=== PATIENT | female | born 1950 | race Two or more races ===

== ENCOUNTER 2025-07-21 13:37 | Inpatient (IN) | payer OTHER, MEDICARE, SELFPAY ==
--- NOTE | 2025-07-21 14:36 | PD.EDABDPN ---
ED Abdominal Pain RME/HPI General Stated complaint: WEAKNESS Time seen by provider: 07/21/25 14:00 Arrival date/time: 07/21/25 13:37 Related Data Allergies Allergy/AdvReac Type Severity Reaction Status Date / Time No Known Allergies Allergy Unverified 07/21/25 14:40 Discharge Plan Patient/Caregiver Discharge Instructions Print Language: Italian
[2025-07-21 14:37] VITALS: BP 104/55; PULSE 111; RESP 22; TEMP 38.8; O2SAT 95
--- NOTE | 2025-07-21 14:38 | XR_ITS ---
Examination: CT brain head without contrast. 2-D sagittal coronal reconstructions Date and time of exam:July 21, 2025, 1940 hrs. Indications: Ground-level fall 4 days ago with left-sided head pain CTDI: vol (mGy):54.8 DLP: (mGycm):1111 Technique: Multiple CT axial sections of the brain have been obtained, 5 mm slice thickness. Contrast has not been administered. 2-D sagittal, coronal reconstructions have been obtained Low dose protocols were performed. One or more of the following dose reduction techniques were used; automated exposure control, adjustment of the mA and/or KV according to patient size, use of iterative reconstruction technique. Findings: No significant ventricular enlargement. Intra-axial or extra-axial hemorrhage density is not seen. No mass effect or midline shift Basal cisterns are not remarkable. Fourth ventricle is midline. Cranial vault intact. Impression: Negative for acute hemorrhage, mass effect or midline shift
--- NOTE | 2025-07-21 14:41 | EKG_ITS ---
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
--- NOTE | 2025-07-21 14:41 | XR_ITS ---
Examination: Foot, left, 3 views Technique: AP, oblique, lateral views foot, 3 views Date and time of exam: July 21, 2025 1518 hours INDICATIONS: Injury to the foot today, foot pain FINDINGS: No acute fracture No dislocation No foreign body IMPRESSION: No acute fracture
--- NOTE | 2025-07-21 14:41 | XR_ITS ---
Examination: AP chest single view Technique one AP portable upright chest single view Date and time: July 21, 2025, 1521 hours INDICATIONS: Sepsis alert FINDINGS: Normal heart size. Lungs are clear. Moderate osteopenia IMPRESSION: No pneumonia identified
--- NOTE | 2025-07-21 14:59 | PD.EDWEAK ---
ED Weakness RME/HPI General Stated complaint: WEAKNESS Time Seen by Provider: 07/21/25 14:00 Arrival date/time: 07/21/25 13:37 Related Data Allergies Allergy/AdvReac Type Severity Reaction Status Date / Time No Known Allergies Allergy Unverified 07/21/25 14:40 Course Orders Category Date Time Status Bedside Blood Glucose NOW Care 07/21/25 14:41 Active Bedside COVID-19 Antigen Test NOW Care 07/21/25 14:38 Active Bedside Influenza A&B Antigen Test NOW Care 07/21/25 14:[address] Screening NOW Care 07/21/25 14:38 Active Shoe Repairman Q4H START 00 Care 07/21/25 14:41 Active Insert IV NOW Care 07/21/25 14:41 Active Strict Intake and Output Routine Care 07/21/25 14:[address] abdomen pelvis w con Stat Exams 07/21/25 14:[address] head/brain wo con Stat Exams 07/21/25 14:38 Ordered XR chest 1V SEPSIS PROTOCOL Stat Exams 07/21/25 14:41 Ordered XR foot comp LT min 3V Stat Exams 07/21/25 14:41 Ordered Blood Culture (Lab) Stat Lab 07/21/25 14:41 Ordered CBC Stat Lab 07/21/25 14:36 Ordered CK [Creatine Kinase] Stat Lab 07/21/25 14:37 Ordered CMP [Comprehensive Metabolic Panel] Stat Lab 07/21/25 14:37 Ordered Lactate (Lactic Acid) Stat Lab 07/21/25 14:41 Ordered PT [Prothrombin Time with INR] Stat Lab 07/21/25 14:38 Ordered Procalcitonin Stat Lab 07/21/25 14:37 Ordered Prothrombin Time with INR Stat Lab 07/21/25 14:41 Ordered UA, C/S IF [Urinalysis, C/S if Indicated] Stat Lab 07/21/25 14:37 Ordered Ringers Lactated 1000 ml [Lactated Ringers] 1,000 ml Med 07/21/25 14:39 Active IV 999 mls/hr EKG (RT) Stat RT 07/21/25 14:41 Ordered Oxygen Delivery NOW RT 07/21/25 14:41 Active Vital Signs Vital signs: Vital Signs Temperature 101.8 F H 07/21/25 14:37 Pulse Rate 111 H 07/21/25 14:37 Respiratory Rate 22 H 07/21/25 14:37 Blood Pressure 104/55 L 07/21/25 14:37 Pulse Oximetry (%) 95 07/21/25 14:37 Oxygen Delivery Method Room Air 07/21/25 14:37 Weakness Medications / Prescriptions Medication administrations:: Medication Administration History Lactated Ringer's (Lactated Ringers) 1,000 mls @ 999 mls/hr IV .Q1H1M ONE Stop: 07/21/25 15:39 Discharge Plan Patient/Caregiver Discharge Instructions Print Language: Sami
--- NOTE | 2025-07-21 15:00 | EDNOTE_ITS ---
ED Weakness RME/HPI General Chief complaint: Weakness Stated complaint: WEAKNESS Time Seen by Provider: 07/21/25 14:00 Arrival date/time: 07/21/25 13:37 Limitations: no limitations RME / HPI RME / HPI Narrative: 74 year old female with history of hypertension presents to the ED BIBA from home for evaluation of weakness today. Per medics, on scene reported the patient had been globally weak for 3 days. Accompanied by three ground level falls over the last 3 days, most recent fall occurring this morning. No LOC reported with either falls. In the ED, patient complains of global weakness, mouth feeling dry, vague abdominal pain, nausea, and diarrhea. Additionally reports she has felt some stress recently as she is taking care of her elderly mother. Denies fevers, chills, chest pain, cough, shortness of breath, vomiting, or urinary symptoms. Denies any recent travel. Per medics, prehospital vital signs HR 96, blood pressure 152/86, saturating 99% on room air, GCS of 15. Related Data Allergies Allergy/AdvReac Type Severity Reaction Status Date / Time No Known Allergies Allergy Unverified 07/21/25 14:40 Review of Systems Review of Systems Systems Reviewed: All systems reviewed, normal except as documented Past Medical History Past Medical History CARDIAC: Positive Hypertension Social History SMOKING STATUS: Never smoker ED Exam General Limitations: Present no limitations General appearance: Present alert and other (appear globally weak, tremor with speaking ) Head Head exam: Present atraumatic Eye Eye exam: Present normal appearance, PERRL and EOMI ENT ENT exam: Present normal exam, normal oropharynx and mucous membranes moist Neck Neck exam: Present normal inspection, full ROM and trachea midline Chest Chest inspection: Present normal inspection and symmetric chest wall rise Respiratory Respiratory exam: Present normal lung sounds bilaterally Cardiovascular Cardiovascular exam: Present regular rate, normal rhythm and normal heart sounds Abdominal Exam Abdominal exam: Present soft and normal bowel sounds; Absent distention, tenderness, guarding, rebound or rigidity Extremities Exam Extremities exam: Present normal inspection and full ROM; Absent pedal edema Back Exam Back exam: Present normal inspection and full ROM Neurological Exam Neurological exam: Present alert, oriented X3 and CN II-XII intact Psychiatric Psychiatric exam: Present normal affect and normal mood Skin Skin exam: Present warm, dry, intact and normal color Course Quality Measures none Orders Category Date Time Status Bedside Blood Glucose NOW Care 07/21/25 14:41 Active Bedside COVID-19 Antigen Test NOW Care 07/21/25 14:38 Active Bedside Influenza A&B Antigen Test NOW Care 07/21/25 14:[address] Screening NOW Care 07/21/25 14:38 Active 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 START 00 Care 07/21/25 14:41 Active Insert IV NOW Care 07/21/25 14:41 Active Strict Intake and Output Routine Care 07/21/25 14:[address] abdomen pelvis wo con Stat Exams 07/21/25 17:[address] head/brain wo con Stat Exams 07/21/25 14:38 Completed XR chest 1V SEPSIS PROTOCOL Stat Exams 07/21/25 14:41 Taken XR foot comp LT min 3V Stat Exams 07/21/25 14:41 Completed Blood Culture (Lab) Stat Lab 07/21/25 14:54 Received CBC Stat Lab 07/21/25 14:45 Completed CK [Creatine Kinase] Stat Lab 07/21/25 14:45 Completed CMP [Comprehensive Metabolic Panel] Stat Lab 07/21/25 14:45 Completed Lactate (Lactic Acid) Stat Lab 07/21/25 14:45 Completed PT [Prothrombin Time with INR] Stat Lab 07/21/25 14:45 Completed Procalcitonin Stat Lab 07/21/25 14:45 Completed UA, C/S IF [Urinalysis, C/S if Indicated] Stat Lab 07/21/25 16:54 Completed Acetaminophen Tab [Tylenol Tab] Med 07/21/25 17:14 Discontinued 650 mg PO X1 ONE Ringers Lactated 1000 ml [Lactated Ringers] 1,000 ml Med 07/21/25 14:39 Discontinued IV 999 mls/hr Ringers Lactated 1000 ml [Lactated Ringers] 1,000 ml Med 07/21/25 17:15 Discontinued IV 999 mls/hr cefTRIAXone/D5w 1gm IV premix [Rocephin/D5w 1gm IV Med 07/21/25 17:17 Discontinued premix] 1 gm in 50 ml IV STAT EKG (RT) Stat RT 07/21/25 14:41 Draft Oxygen Delivery NOW RT 07/21/25 14:41 Active Vital Signs Vital signs: Vital Signs Temperature 101.8 F H 07/21/25 14:37 Pulse Rate 111 H 07/21/25 14:37 Respiratory Rate 22 H 07/21/25 14:37 Blood Pressure 104/55 L 07/21/25 14:37 Pulse Oximetry (%) 95 07/21/25 14:37 Oxygen Delivery Method Room Air 07/21/25 14:37 Pulse ox is 95% on room air which is adequate. Weakness MDM Narrative MDM Narrative:: Patient is a 74-year-old female seen emergency department from concerns for weakness, recurrent falls. Patient also presented febrile and tachycardic. Ordered sepsis order set. Labs with evidence of leukocytosis 11.8, with a left shift. Hemoglobin is 11.6. Patient with creatinine 4.3, patient does not have a history of kidney disease. Do not have a prior for comparison. BUN 68. Bicarb 19.3. Concern for possible dehydration. Provided patient with fluids. Patient with patient with AST 125, ALT 59. CK 4472. Concern for rhabdomyol ysis. Provided patient with additional fluids. Procalcitonin is 77.89. Will provide patient with antibiotics. Patient with foot pain. Foot x-ray without any evidence of fracture. CT brain unremarkable, CT abd pelvis w/o contrast notable for prominent right hydronephrosis, mild to moderate left hydronephrosis. No evidence of renal or ureteral calculi. Patient has mild urinary bladder wall thickening. Urinalysis with evidence of urinary tract infection. Will discuss with the hospitalist admission. Discussed case with hospitalist team resident. Patient data External records reviewed:: [facility] previous records and EMS form Clinical information provided by:: patient and EMS Social determinants that could affect healthcare access:: none Patient has the following chronic illnesses:: HTN How is presenting disease/condition affected by chronic disease/condition?: exacerbated by Evaluation data The following diagnostics were reviewed and interpreted by me:: lab results and radiology exam(s) Lab and/or radiology exams considered but not ordered:: None Interpretation Summary: Ordering Physician: Benita Jean-Baptiste MD Date of Service: 07/21/25 Procedure(s): XR foot comp LT min 3V Accession Number(s): [id number] cc: Tim Thomas MD; NO PRIMARY/FAMILY,PHYSICIAN; Benita Jean-Baptiste MD~ Examination: Foot, left, 3 views Technique: AP, oblique, lateral views foot, 3 views Date and time of exam: July 21, 2025 1518 hours INDICATIONS: Injury to the foot today, foot pain FINDINGS: No acute fracture No dislocation No foreign body IMPRESSION: No acute fracture Dictated By: Tim Thomas MD Signed By: <Electronically signed by Tim Thomas MD in OV> 07/21/25 154 = Ordering Physician: Benita Jean-Baptiste MD Date of Service: 07/21/25 Procedure(s): CT head/brain wo con Accession Number(s): [id number] cc: Tim Thomas MD; NO PRIMARY/FAMILY,PHYSICIAN; Benita Jean-Baptiste MD~ Examination: CT brain head without contrast. 2-D sagittal coronal reconstructions Date and time of exam:July 21, 2025, 1940 hrs. Indications: Ground-level fall 4 days ago with left-sided head pain CTDI: vol (mGy):54.8 DLP: (mGycm):1111 Technique: Multiple CT axial sections of the brain have been obtained, 5 mm slice thickness. Contrast has not been administered. 2-D sagittal, coronal reconstructions have been obtained Low dose protocols were performed. One or more of the following dose reduction techniques were used; automated exposure control, adjustment of the mA and/or KV according to patient size, use of iterative reconstruction technique. Findings: No significant ventricular enlargement. Intra-axial or extra-axial hemorrhage density is not seen. No mass effect or midline shift Basal cisterns are not remarkable. Fourth ventricle is midline. Cranial vault intact. Impression: Negative for acute hemorrhage, mass effect or midline shift Dictated By: Tim Thomas MD Signed By: <Electronically signed by Tim Thoams MD in OV> 07/21/25 175 = Ordering Physician: Benita Jean-Baptiste MD Date of Service: 07/21/25 Procedure(s): CT abdomen pelvis wo con Accession Number(s): [id number] cc: Tim Thomas MD; NO PRIMARY/FAMILY,PHYSICIAN; Benita Jean-Baptiste MD~ Examination: CT abdomen and pelvis without contrast. Coronal 3-D reconstructions. Sagittal 2-D reconstructions. Date and time of exam:July 21, 2025, 1746 hrs. Indications: Patient fell 4 days ago with injury of the abdomen, abdomen pain CTDI: vol (mGy): 12.8 DLP: (mGycm): 798 Technique: Axial images of the abdomen have been obtained, 3 mm slice thickness Intravenous contrast material has not been administered. Low dose protocols were performed. One or more of the following dose reduction techniques were used; automated exposure control, adjustment of the mA and/or KV according to patient size, use of iterative reconstruction technique. Findings: No pneumothorax No liver splenic or renal laceration Cholelithiasis No pancreatic mass Abdominal aorta intact, no free blood in the abdomen Moderate to prominent right hydronephrosis mild to moderate left hydronephrosis, no renal or ureteral calculi Mild thickening of the urinary bladder No acute lumbar or sacral fracture Bones of the pelvis and hips appear intact Impression: No abdominal parenchymal laceration Abdominal aorta intact No free blood in the abdomen Moderate to prominent right hydronephrosis, mild to moderate left hydronephrosis, no renal or ureteral calculi, mild urinary bladder wall thickening, highest on the differential list would be vesicoureteral reflux and significant urinary tract and bladder infection Dictated By: Tim Thomas MD Signed By: <Electronically signed by Tim Thomas MD in OV> 07/21/25 1803 Medications / Prescriptions Medications or Prescriptions considered but not ordered:: None Medication administrations:: Medication Administration History Discontinued Medications Acetaminophen (Acetaminophen 325 Mg Tablet) 650 mg PO X1 ONE Stop: 07/21/25 17:15 Lactated Ringer's (Lactated Ringers) 1,000 mls @ 999 mls/hr IV .Q1H1M ONE Stop: 07/21/25 15:39 Last Admin: 07/21/25 17:10 Dose: 999 mls/hr Documented By: EF Lactated Ringer's (Lactated Ringers) 1,000 mls @ 999 mls/hr IV .Q1H1M ONE Stop: 07/21/25 18:15 Ceftriaxone Sodium/Dextrose (Rocephin/D5w 1gm Iv Premix) 1 gm in 50 mls @ 100 mls/hr IV STAT STA Stop: 07/21/25 17:46 See above Consultations Consultation(s) initiated? (list below): Yes Consultation #1 (Physician, Specialty, Details): See MDM Diagnosis Weakness Differential Diagnosis: anemia, hypoglycemia, sepsis and dehydration Most likely diagnosis given after review of the tests above:: Acute renal failure, rhabdomyolysis, sepsis, urinary tract infection, urosepsis Admission Indicated Admission indicated?: indicated Admission Request Was there a request for admission?: Yes Admission Attestation Admission request attestation: Discussed case with Hospitalist service regarding admission. Discussed patients ED course, exam findings, labs, and radiology results. Disposition Plan Disposition Plan: Admit Critical Care Time Critical Care Time Critical Care Time: Yes Total Critical Care Time (min.): 45 Attestation: ?I spent 45 minutes of critical care time with this patient not including reportable procedures. There was an acute impairment of an organ system with a high probability of imminent or life threatening deterioration in the patient's condition. Interventions and changes required in the course of therapy are located in the chart. Time involved was spent in direct patient care, reviewing ancillary data, old records, consulting with decision makers, EMS, other doctors, giving orders and documenting. Discharge Plan Plan Patient Disposition: Admit Acute Care w/in Hospital Prescriptions/Referrals Referrals: No Primary/Family,Physician [Primary Care Provider] - In 1 week Problem List Clinical Impression: Rhabdomyolysis, Sepsis, Urinary tract infection Patient/Caregiver Discharge Instructions Print Language: Lithuanian Stand Alone Forms: Rosemary Award Info., Patient Portal Info Letter
[2025-07-21 15:01] LABS: Lactate (Lactic Acid) 1.8 mMol/L (0.4-2.0)
[2025-07-21 15:09] LABS: Basophils # (Auto) 0.0 Thou/mm3 (0.0-0.2); Basophils % (Auto) 0 % (0-2.5); Eosinophils # (Auto) 0.1 Thou/mm3 (0.0-0.5); Eosinophils % (Auto) 1 % (0-10); Hematocrit 34.3 % (36.0-46.0); Hemoglobin 11.6 g/dL (12.0-16.0); Immature Granulocytes Auto 0.07 Thou/mm3 (0.00-0.00); Lymphocytes # (Auto) 0.5 Thou/mm3 (1.0-4.8); Lymphocytes % (Auto) 4 % (10-50); Mean Corpuscular HGB Conc 33.8 g/dl (31.0-37.0); Mean Corpuscular Hemoglobin 30.2 pg (25.0-35.0); Mean Corpuscular Volume 89 fL (80-100); Monocytes # (Auto) 0.9 Thou/mm3 (0.0-0.8); Monocytes % (Auto) 8 % (0-12); Neutrophils # (Auto) 10.2 Thou/mm3 (1.8-7.7); Neutrophils % (Auto) 87 % (37-80); Nucleated Red Blood Cell # 0.00 Thou/mm3 (0.00-0.00); Nucleated Red Blood Cell % 0 /100 WBC (0); Platelet Count 108 Thou/mm3 (140-440); RDW Standard Deviation 42.0 fL (36.4-46.3); Red Blood Count 3.84 Miln/mm3 (4.00-5.20); White Blood Count 11.8 Thou/mm3 (3.6-11.0)
[2025-07-21 15:16] LABS: INR 1.1 (0.9-1.3); Prothrombin Time 12.3 Seconds (9.0-12.2)
[2025-07-21 15:39] LABS: Alanine Aminotransferase 59 U/L (10-49); Albumin, Serum 4.0 gm/dL (3.4-4.8); Albumin/Globulin Ratio 1.3 (1.2-2.2); Alkaline Phosphatase 58 U/L (46-116); Anion Gap 14 (7-16); Aspartate Amino Transferase 125 U/L (0-34); BUN/Creatinine Ratio 16 Ratio (12-20); Bilirubin,Total 1.0 mg/dL (0.3-1.2); Blood Urea Nitrogen 68 mg/dL (9-23); Calcium 9.2 mg/dL (8.3-10.6); Calcium (Corrected) 9.2 mg/dL (8.5-10.1); Carbon Dioxide 19.3 mMol/L (20.0-31.0); Chloride 101 mMol/L (98-107); Creatinine (Component) 4.3 mg/dL (0.6-1.3); Globulin 3.1 gm/dL (2.3-3.5); Glucose 156 mg/dL (74-106); Osmolality,Calculated 290 (275-295); Potassium 4.0 mMol/L (3.4-5.1); Sodium 134 mMol/L (136-145); Total Protein 7.1 gm/dL (5.7-8.2); eGFR 10 See Note
[2025-07-21 15:42] LABS: Creatine Kinase 4472 U/L (34-171)
[2025-07-21 15:57] LABS: Procalcitonin 77.81 ng/ml (0.0-0.49)
[2025-07-21 16:56] VITALS: PULSE 105; RESP 22; RESP 96; BMI 41.1
[2025-07-21 16:58] LABS: Collection Type, Urine Catheter
[2025-07-21] MEDS: RINGERS LACTATED 1000 ML 1,000 ML 999 ML IV ×2 (17:10→20:28)
--- NOTE | 2025-07-21 17:13 | XR_ITS ---
Examination: CT abdomen and pelvis without contrast. Coronal 3-D reconstructions. Sagittal 2-D reconstructions. Date and time of exam:July 21, 2025, 1746 hrs. Indications: Patient fell 4 days ago with injury of the abdomen, abdomen pain CTDI: vol (mGy): 12.8 DLP: (mGycm): 798 Technique: Axial images of the abdomen have been obtained, 3 mm slice thickness Intravenous contrast material has not been administered. Low dose protocols were performed. One or more of the following dose reduction techniques were used; automated exposure control, adjustment of the mA and/or KV according to patient size, use of iterative reconstruction technique. Findings: No pneumothorax No liver splenic or renal laceration Cholelithiasis No pancreatic mass Abdominal aorta intact, no free blood in the abdomen Moderate to prominent right hydronephrosis mild to moderate left hydronephrosis, no renal or ureteral calculi Mild thickening of the urinary bladder No acute lumbar or sacral fracture Bones of the pelvis and hips appear intact Impression: No abdominal parenchymal laceration Abdominal aorta intact No free blood in the abdomen Moderate to prominent right hydronephrosis, mild to moderate left hydronephrosis, no renal or ureteral calculi, mild urinary bladder wall thickening, highest on the differential list would be vesicoureteral reflux and significant urinary tract and bladder infection
[2025-07-21 17:14] VITALS: BP 116/58; PULSE 103; RESP 28; TEMP 37.4; O2SAT 95
[2025-07-21 17:20] LABS: Bacteria,Urine 4+; Bilirubin,Urine Negative (Negative); Blood,Urine 3+ (Negative); Color,Urine Orange (Lt Yel-Yel); Culture Indicated,Urine Contaminated; Glucose, Urine Negative (Negative); Ketones,Urine Negative (Negative); Leukocyte Esterase,Urine Positive (Negative); Nitrite,Urine Negative (Negative); PH,Urine 8.0 (5.0-7.0); Protein,Urine 2+ (Neg - Trace); RBC,Urine 1000 /hpf (0-3); Specific Gravity,Urine 1.010 (1.001-1.035); Squamous Epithelial Cell,Urine 35 /hpf (0-5); Urobilinogen,Urine Negative mg/dL (0.0-1.0); WBC,Urine 1438 /hpf (0-5)
[2025-07-21 17:26] LABS: Clarity,Urine Turbid (Clear/Hazy)
--- NOTE | 2025-07-21 18:24 | PD.RESEVENT ---
Documentation for date of: 07/21/25 Event Note Event Note: Merary Cortes is a 74-year-old female with a history of hypertension who presented for weakness for 3 days per . She has had associated abdominal pain, nausea, and diarrhea but no fever, chills, chest pain, shortness of breath. Of note, she did have a fall recently but no reported loss of consciousness. In ED, presented with pulse of 111, respiratory rate 22, temp of 101.8 ?F, and on room air. CBC showed slight leukocytosis of 11.8, hemoglobin 11.6. CHEM panel showed bicarb 19.3, BUN 60, creatinine 4.3, no history of kidney disease. AST 125, ALT 59, CK 4000, Pro-Arthur 77. UA showed turbid urine, LE positive, 1000 RBC, 14,000 WBC, 4+ bacteria. CT A/P showed moderate to prominent right hydronephrosis, mild to moderate left hydronephrosis but no obstructive lesions seen. Suspect to be due to vesicoureteral reflux and significant urinary tract and bladder infection. CT head negative for hemorrhage or mass affect. EKG showed sinus tachycardia. Given 1 L LR in ED. Pending admission for UTI, rhabdomyolysis, and suspected diarrheal illness and will sign out to oncoming team. ----- Plan discussed with attending physician Dr. Roosevelt Purvis MD PGY-2 Internal Medicine
[2025-07-21] MEDS: ACETAMINOPHEN 325 MG TABLET 650 MG PO (18:47)
[2025-07-21] MEDS: cefTRIAXone/D5w 1gm IV premix 1 GM/50 ML BAG IV (18:48)
--- NOTE | 2025-07-21 19:50 | PD.EDADDENDU ---
Emergency Room Addendum Addendum Narrative: Signout received from previous shift ED physician Dr. Jean-Baptiste. Past medical, surgical, social, family history reviewed vitals home medications reviewed, will resume care of the patient at this time. Please refer to emergency department record of history and exam from initial visit Ms. 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 Patient reported multiple falls, reports her legs gave out, bruising noted on the left side of her face. No loss of consciousness reported with each fall however patient complains of global weakness, vague abdominal pain nausea and diarrhea. Patient's workup remarkable for severe acute kidney injury BUN 68 creatinine 4.3 eGFR 10 with mild transaminitis and creatinine kinase elevation at 4472. Patient noted to have hematuria, 3+ blood, 1000 RBC 4+ bacteria with suspicion of UTI. CT head unremarkable, CT abdomen pelvis shows prominent right hydronephrosis with mild to moderate left hydronephrosis, urinary bladder wall thickening noted as well. Case was discussed by Dr. Jean-Baptiste with hospitalist team who agreed to admit the patient, however patient was signed out to the paralegal secretary team due to shift change. 1950: General Manager [employer] team requesting urology consult prior to admission, case discussed with urologist Dr. Wright who agreed to consult on the patient, requesting clinicals and facesheet be faxed over to his office. He recommended placing a Ku catheter. 2016: Ku catheter placed, 50 cc urine output noted, informed hospitalist team. Hospitalist team accepted patient for admission. Case discussed with Attending Physician Dr. Mina Remy MD Internal Medicine PGY-2 Disclaimer: This note was dictated by speech recognition. Minor errors in film printer may be present due to voice recognition software.
[2025-07-21 20:18] VITALS: BP 111/52; PULSE 105; RESP 18; TEMP 37.3; O2SAT 96
[2025-07-21] MEDS: RINGERS LACTATED 1000 ML 1,000 ML 100 ML IV (21:00)
--- NOTE | 2025-07-21 21:13 | ESHP_ITS ---
Documentation for date of: 07/21/25 [facility] History of Present Illness History of present illness: The patient is a 74-year-old female with a history of hypertension who presents to the ED on 07/21/2025 with a chief complaint of weakness following a ground- level fall. The fall occurred 3 days ago, with sudden onset of generalized weakness. She denies loss of consciousness or urinary incontinence at the time of the fall. After the fall, the patient experienced left-sided foot numbness, which has since improved. She denies any other body pain. The patient reports a history of fatigue, sleepiness, and decreased appetite prior to the fall, but denies lightheadedness, chest pain, tinnitus, nausea, or vomiting. On the morning of the event, she had breakfast and was walking around her home when she suddenly felt weak and fell. She denies any tingling or other sensory changes at the time of the fall. The patient also notes starting Mounjaro (tirzepatide) three weeks ago, with two doses administered thus far. She is concerned that her current symptoms of weakness may be related to the medication. She has lost 10-11 pounds since starting Mounjaro. Additionally, the patient reports 1 week of dysuria, hematuria, and a sensation of a full and distended bladder. She attempts to urinate regularly but feels as though she is unable to void completely, without any associated urinary frequency. She has history of uterus prolapse for which she is following with a doctor in [place]. She denies fever, chills, chest pain, cough, shortness of breath, nausea, vomiting, or changes in bowel movements. There is no history of recent travel or sick contacts. ED Course: -Initial vitals were BP 104/25, pulse 111, respiratory 18, temp 101.8, O2 75% on room air. -Labs significant for WBC 11.8, hemoglobin 11.6, hematocrit 34.3, platelet 108, sodium 134, bicarb 19.3, BUN 60, creatinine 4.3, eGFR 10, AST 125, ALT 59, lactic creatinine is 204, creatinine kinase 4472, Pro-Arthur 77.81. VBG pH 7.44, CO2 24, O2 67. UA showed turbid urine, LE positive, 1000 RBC, 14,000 WBC, 4+ bacteria. -Imaging included CT A/P showed moderate to prominent right hydronephrosis, mild to moderate left hydronephrosis but no obstructive lesions seen. Suspect to be due to vesicoureteral reflux and significant urinary tract and bladder infection. CT head negative for hemorrhage or mass affect. EKG showed sinus tachycardia. -In the ED, patient was given 1 L LR, started nava cath, made 170cc urine after nava.Post nava bladder showed 143 cc -Patient was admitted for UTI and Rhabdomyolysis evaluation and management Review of Systems Review of systems otherwise negative except what is mentioned above. Past Medical History: Mentioned above Family History: Noncontributory Surgical History: none Social History: Denies history of smoking, denies current alcohol use, denies recreational drug use lives withs . 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 Current Medications: Losartan and omeprazole Allergies: No known drug allergies Exam Vital Signs Temp Pulse Resp BP Pulse Ox O2 Del Method 99.2 F 105 H 18 111/52 L 96 Room Air 07/21/25 20:18 07/21/25 20:18 07/21/25 20:18 07/21/25 20:18 07/21/25 20:18 07/21/25 20:18 Narrative Exam General: Alert, no acute distress.Conversational and non-toxic appearing. Skin: Warm, dry, intact. No rash or ecchymoses. Head:bruise around her left eye and eyebrow,normocephalic, atraumatic. Eye: Normal conjunctiva, PERRL. Throat: Oral mucosa moist. No obvious lesions in oropharynx. Cardiovascular: Regular rate and rhythm, no murmur, +S1/S2. Respiratory: Lungs are clear to auscultation, respirations unlabored, no crackles, no wheezing. Gastrointestinal: Soft, nontender, non-distended. No guarding or rebound tenderness. Extremities: Left knee bruise, No edema, no cyanosis, no clubbing. Neuro: Alert and oriented x3.No focal deficits observed. Conversant, moving all extremities. No overt cerebellar signs/incoordination. Psychiatric: Cooperative, appropriate affect Results: Labs 07/24/25 04:55 07/24/25 04:55 Labs: Short CBC 07/21/25 Range/Units 14:45 WBC 11.8 H (3.6-11.0) Thou/mm3 Hgb 11.6 L (12.0-16.0) g/dL Hct 34.3 L (36.0-46.0) % Plt Count 108 L (140-440) Thou/mm3 BMP 07/21/25 14:45 Sodium 134 L Potassium 4.0 Chloride 101 Carbon Dioxide 19.3 L BUN 68 H Creatinine 4.3 H* Glucose 156 H Calcium 9.2 Cardiac Enzymes 07/21/25 Range/Units 14:45 Total Creatine Kinase 4472 H (34-171) U/L Liver Function 07/21/25 Range/Units 14:45 Total Bilirubin 1.0 (0.3-1.2) mg/dL AST 125 H (0-34) U/L ALT 59 H (10-49) U/L Alkaline Phosphatase 58 (46-116) U/L Albumin 4.0 (3.4-4.8) gm/dL Urine 07/21/25 Range/Units 16:54 Urine Color Sampson A (Lt Yel-Yel) Urine Clarity Turbid A (Clear/Hazy) Urine pH 8.0 H (5.0-7.0) Ur Specific [place] 1.010 (1.001-1.035) Urine Protein 2+ A (Neg - Trace) Urine Glucose (UA) Negative (Negative) Quality Measures Quality Measures none Advance care planning discussed with:: patient and spouse Medications Home Medications and Allergies Home Medications ?Medication ?Instructions ?Recorded ?Confirmed ?Type losartan 50 mg tablet 50 mg PO QDAY 07/21/2507/21 History omeprazole 20 mg capsule,delayed 20 mg PO QDAY 5 07/21/25 History release Allergies Allergy/AdvReac Type Severity Reaction Status Date / Time No Known Allergies Allergy Unverified 07/21/25 14:40 Visit Medications Lactated Ringer's (Lactated Ringers) 1,000 mls @ 100 mls/hr IV .Q10H DARIEL Stop: 08/20/25 20:49 Ceftriaxone Sodium/Dextrose (Rocephin/D5w 1gm Iv Premix) 1 gm in 50 mls @ 100 mls/hr IV QDAY DARIEL Stop: 07/29/25 08:59 Discontinued Medications Acetaminophen (Acetaminophen 325 Mg Tablet) 650 mg PO X1 ONE Stop: 07/21/25 17:15 Last Admin: 07/21/25 18:47 Dose: 650 mg Lactated Ringer's (Lactated Ringers) 1,000 mls @ 999 mls/hr IV .Q1H1M ONE Stop: 07/21/25 15:39 Last Infusion: 07/21/25 20:15 Dose: Infused Lactated Ringer's (Lactated Ringers) 1,000 mls @ 999 mls/hr IV .Q1H1M ONE Stop: 07/21/25 18:15 Last Admin: 07/21/25 20:28 Dose: 999 mls/hr Ceftriaxone Sodium/Dextrose (Rocephin/D5w 1gm Iv Premix) 1 gm in 50 mls @ 100 mls/hr IV STAT STA Stop: 07/21/25 17:46 Last Infusion: 07/21/25 19:31 Dose: Infused Assessment & Plan Plan The patient is a 74-year-old female with a history of hypertension who presents to the ED on 07/21/2025 with a chief complaint of weakness following a ground- level fall. Admitted for rhabdomyolysis/UTI evaluation and management #Sepsis in setting of UTI #Bilateral hydronephrosis Patient presented 1 week of dysuria, hematuria, and a sensation of a full and distended bladder. On admission patient was tachycardic, tachypneic and febrile with a temperature of 101.8, leukocytosis meeting the criteria of sepsis with endorgan damage noted by creatinine levels . WBC 11.8, Pro-Arthur 77.81. UA showed turbid urine, LE positive, 1000 RBC, 14,000 WBC, 4+ bacteria. EKG showed sinus tachycardia.? Given 1.5 L LR in ED. Unable to give more due to urinary retention. Likely secondary to postobstructive uropathy given the CT abdominal finding showing prominent right hydronephrosis with mild to moderate left hydronephrosis. - Started nava cath, made 170cc urine after nava.Post nava bladder showed 143 cc, continue to monitor - Strict ins and out - Started IV LR at 100/h - Started ceftriaxone 1 gm IV - Pain controlled acetaminophen and Dilaudid as needed -Blood culture, pending - Urine culture, pending - Urology Dr. Wright was consulted by the ED physician-recommendation appreciated #Status post, ground-level fall #Rhabdomyolysis #Acute tubular necrosis #Transaminitis Rhabdomyolysis, secondary to muscle breakdown following a ground-level fall, leads to the release of myoglobin into the bloodstream, which is toxic to the kidneys and can cause acute tubular necrosis by accumulating in the renal nephrons. Also the patient denies caffeine intake, health supplements, or energy drinks, ruling out these potential causes of rhabdomyolysis. CT A/P showed moderate to prominent right hydronephrosis, mild to moderate left hydronephrosis but no obstructive lesions seen.? Suspect to be due to vesicoureteral reflux and significant urinary tract and bladder infection.? CT head negative for hemorrhage or mass affect.? AST 125, ALT 59, HCO3 19. CK 4472 after IVF improve to 3405. - consulted, will see the patient in the morning - Continue IV hydration as mentioned above - Continue to monitor creatinine kinase levels #Postobstructive uropathy #Acute kidney injury, likely postrenal Significant elevated creatinine, bun and low GFR may be secondary to possible postobstructive uropathy given the patient history of urinary retention and suspicion of possible vesicoureteral reflux on CT abdominal/pelvis. Creatinine 4.3(baseline unknow) on admission improved to 3.6 after IV hydration, eGFR 10, bun 68, bun/cr 16. - Strict ins and out - Avoid nephrotoxins - Monitor renal panel -Renally dosed medications #Cholelithiasis Found on CT abdominal pelvis. Abdominal pain, nausea, vomiting and postprandial pain. - Continue to monitor Hospital management: Lines: peripheral IV Diet: N.p.o. 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 CODE STATUS: Full code Patient seen and assessed under supervision of attending physician Dr.Alhalaibeh Kaylynn Bliss MD PGY-1, Internal Medicine Please note: this document was transcribed using voice recognition technology; minor inaccuracies may be present. Attending Provider Attestation/Addendum After examination of the patient and review of the clinical data I feel that this patient needs admission to the hospital for further treatment/evaluation. Plan of care discussed with patient and is in agreement. I Juan Rincon MD, attest that I was physically present for saini portions of evaluation, and examined patient, labs and imagings and plan of care were discussed with IM residents team, and I agree with the findings and plans documented above.
[2025-07-21 21:14] LABS: Base Excess, Venous -7 (-3-3); O2 Saturation, Venous 95 % (96-97); PCO2, Venous 24 mmHg (36-56); PO2, Venous 67 mmHg (15-58); pH, Venous 7.44 (7.33-7.66)
[2025-07-21 21:32] LABS: Albumin, Serum 3.0 gm/dL (3.4-4.8); Anion Gap 16 (7-16); BUN/Creatinine Ratio 19 Ratio (12-20); Blood Urea Nitrogen 69 mg/dL (9-23); Calcium 8.0 mg/dL (8.3-10.6); Calcium (Corrected) 8.8 mg/dL (8.5-10.1); Carbon Dioxide 15.6 mMol/L (20.0-31.0); Chloride 103 mMol/L (98-107); Creatinine (Component) 3.6 mg/dL (0.6-1.3); Estimated Creatinine Clearance 15.8 mL/min (>60); Glucose 110 mg/dL (74-106); LDH (Lactate Dehydrogenase) 284 U/L (120-246); Osmolality,Calculated 291 (275-295); Phosphorous 1.8 mg/dL (2.4-5.1); Potassium 3.6 mMol/L (3.4-5.1); Sodium 135 mMol/L (136-145); eGFR 13 See Note
[2025-07-21 21:41] LABS: Creatine Kinase 3405 U/L (34-171)
[2025-07-21 22:10] VITALS: BMI 41.2
[2025-07-21 23:33] VITALS: PULSE 79; RESP 22; RESP 94
[2025-07-22] VITALS (13 sets, daily range): BP systolic 119–150; BP diastolic 66–95; PULSE 79–115; RESP 16–94; TEMP 36.1–39.6; O2SAT 92–95
[2025-07-22] MEDS: RINGERS LACTATED 1000 ML 1,000 ML 100 ML IV (04:20)
[2025-07-22 05:25] LABS: Basophils # (Auto) 0.0 Thou/mm3 (0.0-0.2); Basophils % (Auto) 0 % (0-2.5); Eosinophils # (Auto) 0.0 Thou/mm3 (0.0-0.5); Eosinophils % (Auto) 0 % (0-10); Hematocrit 33.7 % (36.0-46.0); Hemoglobin 11.4 g/dL (12.0-16.0); Immature Granulocytes Auto 0.09 Thou/mm3 (0.00-0.00); Lymphocytes # (Auto) 0.4 Thou/mm3 (1.0-4.8); Lymphocytes % (Auto) 6 % (10-50); Mean Corpuscular HGB Conc 33.8 g/dl (31.0-37.0); Mean Corpuscular Hemoglobin 30.6 pg (25.0-35.0); Mean Corpuscular Volume 91 fL (80-100); Monocytes # (Auto) 0.7 Thou/mm3 (0.0-0.8); Monocytes % (Auto) 9 % (0-12); Neutrophils # (Auto) 6.7 Thou/mm3 (1.8-7.7); Neutrophils % (Auto) 84 % (37-80); Nucleated Red Blood Cell # 0.00 Thou/mm3 (0.00-0.00); Nucleated Red Blood Cell % 0 /100 WBC (0); Platelet Count 88 Thou/mm3 (140-440); RDW Standard Deviation 43.2 fL (36.4-46.3); Red Blood Count 3.72 Miln/mm3 (4.00-5.20); White Blood Count 8.0 Thou/mm3 (3.6-11.0)
[2025-07-22 06:07] LABS: Anion Gap 16 (7-16); BUN/Creatinine Ratio 20 Ratio (12-20); Blood Urea Nitrogen 85 mg/dL (9-23); Calcium 8.9 mg/dL (8.3-10.6); Carbon Dioxide 19.5 mMol/L (20.0-31.0); Chloride 102 mMol/L (98-107); Creatine Kinase 3137 U/L (34-171); Creatinine (Component) 4.3 mg/dL (0.6-1.3); Estimated Creatinine Clearance 12.9 mL/min (>60); Glucose 133 mg/dL (74-106); Magnesium 1.6 mg/dL (1.6-2.6); Osmolality,Calculated 301 (275-295); Phosphorous 2.8 mg/dL (2.4-5.1); Potassium 3.5 mMol/L (3.4-5.1); Sodium 137 mMol/L (136-145); eGFR 10 See Note
--- NOTE | 2025-07-22 07:48 | PD.RESCONSUL ---
HPI Data of Consult Consult date: 07/22/25 Requesting Physician: Juan Rincon MD Admitting Provider: Juan Rincon MD Attending Provider: Juan Rincon MD Primary Care Provider: Physician No Primary/Family Consult Narrative Reason for consult: JOSE History of present illness: History of Present Illness: 74y/o F with PMH of HTN, uterine prolapse established with [facility] outpatient and GERD presented to the hospital on 07/21/2025 with a history of 3 episodes of ground level falls associated with generalized weaknesss at the time of each fall. The episodes occurred once daily over the past three days during which she did not have any chest pain, paplation, or loss of consciousness. She reports being on Mounjaro and notes an approximate 10 pounds weight loss since initiation. Additionally, she endorses urinary symptoms for the past week, including coining difficulties, dysuria, hematuria and a sensation of incomplete bladder emptying. At the time she of ED visit, patient complained of Nausea, mouth dryness and diarrhea. Denies chest pain, palpation, SOB, abdominal pain, N/V, fevers or chills. Pt was admitted for rhabdomyolysis/UTI evaluation and management. Nephrology has been consulted for management of JOSE, rhabomyolysis and UTI. ED course: -Initial vitals were BP 104/25, pulse 111, respiratory 18, temp 101.8, O2 75% on room air. -Labs significant for WBC 11.8, hemoglobin 11.6, hematocrit 34.3, platelet 108, sodium 134, bicarb 19.3, BUN 60, creatinine 4.3, eGFR 10, AST 125, ALT 59, lactic creatinine is 204, creatinine kinase 4472, Pro-Arthur 77.81. VBG pH 7.44, CO2 24, O2 67. UA showed turbid urine, LE positive, 1000 RBC, 14,000 WBC, 4+ bacteria. -Imaging included CT A/P showed moderate to prominent right hydronephrosis, mild to moderate left hydronephrosis but no obstructive lesions seen. Suspect to be due to vesicoureteral reflux and significant urinary tract and bladder infection. CT head negative for hemorrhage or mass affect. EKG showed sinus tachycardia. -In the ED, patient was given 1 L LR, started nava cath, made 170cc urine after nava.Post nava bladder showed 143 cc Past Medical History: Mentioned above Family History: Noncontributory Surgical History: none Social History: Denies history of smoking, denies current alcohol use, denies recreational drug use lives withs . Mother pediatric ophthalmologist. Current Medications: Losartan and omeprazole Allergies: No known drug allergies 07/22/2025: Labs reviewed and patient examined at the bedside. Patient's past Cr was 0.67 in 2023. On admission, her Cr 4.3 which shows that she have JOSE. The cause of Jose is likely to be multi-factorial. Pre-renal cause include nausea, vomiting, and diarrhea, likely caused by Mounjaro, and since she had significant weight loss after using it, perhaps the dosage might be too much for patient's body. Instrinsic renal cause likely due to ATN caused by rhabdomyolysis. Post-renal as evidenced by CT scan and Renal US showing bilateraly hydronephrosis, but cause is less clear because based on ED note, patient has drained very little urine when nava catheter was first introduced. The cause can be due to uterine prolapse. Vesicoureteral reflux can contribute to the picture of bilateral hydronephrosis and anuria despite nava, but VUR itself does not ususally cause an immediate postrenal obstruction. However, it does predispose patients to UTI and chronic scarring. Will continue to monitor patient. Will continue IVF and abx. cc:: cc: Juan Rincon MD Review of Systems Review of Systems Narrative Review of Systems: All 12 systems assessed and the patient denies unless otherwise stated in HPI Exam Vital Signs Temp Pulse Resp BP Pulse Ox O2 Del Method 98.1 F 115 H 18 136/68 H 93 L Room Air 07/22/25 04:00 07/22/25 06:17 07/22/25 06:17 07/22/25 04:00 07/22/25 04:00 07/22/25 00:00 Narrative Exam General: No acute distress, well nourished, AAO x3 Eye: PERRL, EOMI, normal conjunctiva, no scleral icterus HENT: Normocephalic, atraumatic, hearing intact to conversation at normal volume, moist oral mucosa Neck: Supple, non-tender, no JVD, no lymphadenopathy Lungs: Non-labored respirations, symmetric chest rise, Clear to auscultate bilaterally, No wheezing, rhonchi, crackles Heart: Peripheral pulses intact bilaterally, Regular Rate and Rhythm. Abdomen: Soft, non-tender, non-distended, no palpable masses Musculoskeletal: Normal range of motion and strength, No cyanosis or edema, No visible joint swelling, Ecchymosis around left eye Skin: Skin is warm, dry, no rashes or lesions. Psychiatric: Cooperative, appropriate mood and affect, Awake and alert, not agitated Neuro: Cranial nerves II-XII grossly intact. Sensations intact to light touch. Results Labs 07/23/25 05:16 07/23/25 05:16 Labs: Short CBC 07/21/25 07/22/25 Range/Units 14:45 04:27 WBC 11.8 H 8.0 (3.6-11.0) Thou/mm3 Hgb 11.6 L 11.4 L (12.0-16.0) g/dL Hct 34.3 L 33.7 L (36.0-46.0) % Plt Count 108 L 88 L (140-440) Thou/mm3 BMP 07/21/25 07/21/25 07/22/25 14:45 20:46 04:27 Sodium 134 L 135 L 137 Potassium 4.0 3.6 3.5 Chloride 101 103 102 Carbon Dioxide 19.3 L 15.6 L 19.5 L BUN 68 H 69 H 85 H Creatinine 4.3 H* 3.6 H D 4.3 H* D Glucose 156 H 110 H 133 H Calcium 9.2 8.0 L 8.9 Cardiac Enzymes 07/21/25 07/21/25 07/22/25 Range/Units 14:45 20:46 04:27 Total Creatine Kinase 4472 H 3405 H D 3137 H D (34-171) U/L Liver Function 07/21/25 07/21/25 Range/Units 14:45 20:46 Total Bilirubin 1.0 (0.3-1.2) mg/dL AST 125 H (0-34) U/L ALT 59 H (10-49) U/L Alkaline Phosphatase 58 (46-116) U/L Albumin 4.0 3.0 L D (3.4-4.8) gm/dL Urine 07/21/25 Range/Units 16:54 Urine Color Frederic A (Lt Yel-Yel) Urine Clarity Turbid A (Clear/Hazy) Urine pH 8.0 H (5.0-7.0) Ur Specific [place] 1.010 (1.001-1.035) Urine Protein 2+ A (Neg - Trace) Urine Glucose (UA) Negative (Negative) ABG Interpretation ABG results: 07/21/25 20:46 VBG pH 7.44 VBG pCO2 24 L VBG pO2 67 H VBG Base Excess -7 L Quality Measures Quality Measures none Advance care planning discussed with:: patient Medications Home Medications and Allergies Home Medications ?Medication ?Instructions ?Recorded ?Confirmed ?Type losartan 50 mg tablet 50 mg PO QDAY 07/21/25 07/21/25 History omeprazole 20 mg capsule,delayed 20 mg PO QDAY 07/21/25 07/21/25 History release Allergies Allergy/AdvReac Type Severity Reaction Status Date / Time No Known Allergies Allergy Unverified 07/21/25 14:40 Visit Medications Acetaminophen (Acetaminophen 325 Mg Tablet) 650 mg PO Q4HR PRN PRN Reason: Pain Scale 1-3 (Mild) Stop: 08/20/25 21:12 Hydromorphone HCl (Hydromorphone Inj 2 Mg/Ml Vial) 1 mg IVP Q4HR PRN PRN Reason: PAIN SCALE 7-10 Stop: 07/26/25 21:14 Hydromorphone HCl (Hydromorphone Inj 2 Mg/Ml Vial) 0.5 mg IVP Q4HR PRN PRN Reason: PAIN SCALE 4-6 Stop: 07/26/25 21:14 Lactated Ringer's (Lactated Ringers) 1,000 mls @ 100 mls/hr IV .Q10H DARIEL On Hold: 07/22/25 07:44 Stop: 08/20/25 20:49 Last Admin: 07/22/25 04:20 Dose: 100 mls/hr Ceftriaxone Sodium/Dextrose (Rocephin/D5w 1gm Iv Premix) 1 gm in 50 mls @ 100 mls/hr IV QDAY DARIEL Stop: 07/29/25 08:59 Discontinued Medications Acetaminophen (Acetaminophen 325 Mg Tablet) 650 mg PO X1 ONE Stop: 07/21/25 17:15 Last Admin: 07/21/25 18:47 Dose: 650 mg Lactated Ringer's (Lactated Ringers) 1,000 mls @ 999 mls/hr IV .Q1H1M ONE Stop: 07/21/25 15:39 Last Infusion: 07/21/25 20:15 Dose: Infused Lactated Ringer's (Lactated Ringers) 1,000 mls @ 999 mls/hr IV .Q1H1M ONE Stop: 07/21/25 18:15 Last Infusion: 07/21/25 20:45 Dose: Infused Ceftriaxone Sodium/Dextrose (Rocephin/D5w 1gm Iv Premix) 1 gm in 50 mls @ 100 mls/hr IV STAT STA Stop: 07/21/25 17:46 Last Infusion: 07/21/25 19:31 Dose: Infused Assessment & Plan Plan 74y/o F with PMH of HTN, uterine prolapse established with [facility] outpatient and GERD presented to the hospital on 07/21/2025 with a history of 3 episodes of ground level falls associated with generalized weaknesss at the time of each fall. Pt was admitted for rhabdomyolysis/UTI evaluation and management. Nephrology has been consulted for management of JOSE, rhabomyolysis and UTI. #JOSE #2/2 Nausea/Vomiting/Diarrhea VS Rhabdomyolysis VS Urinary retention -Patient's past Cr was 0.67 in 2023. On admission, her Cr 4.3 which shows that she have JOSE. -Upon admission, BUN:68, Cr:4.3, eGFR:10. No past labs to know baseline. -No edema, lungs clear, mucus membranes dry. -CTAP (07/21/2025): Moderate to prominent right hydronephrosis, mild to moderate left hydronephrosis, no renal or ureteral calculi, mild urinary bladder wall thickening, highest on the differential list would be vesicoureteral reflux and significant urinary tract and bladder infection -Renal US (07/22/2025): Right kidney 11.8 cm cortex 1.7 cm, Advanced right hydronephrosis, Left kidney 14.2 cm cortex 1.7 cm, Moderate Left hydronephrosis, Contracted urinary bladder. -The cause of Jose is likely to be multi-factorial. Pre-renal cause include nausea, vomiting, and diarrhea, likely caused by Mounjaro, and since she had significant weight loss after using it, perhaps the dosage might be too much for patient's body VS Instrinsic renal cause likely due to ATN caused by rhabdomyolysis VS Post-renal as evidenced by CT scan and Renal US showing bilateral hydronephrosis, but cause is less clear because based on ED note, patient has drained very little urine when nava catheter was first introduced. The cause can be due to uterine prolapse. Vesicoureteral reflux can contribute to the picture of bilateral hydronephrosis and anuria despite nava, but VUR itself does not ususally cause an immediate postrenal obstruction. However, it does predispose patients to UTI and chronic scarring. Plan: -Started 1 L IV LR 125ml/hr maintenance fluid -Avoid nephrotoxins -Renally dose medication -On Nava Catheter -Pending cystoscopy, ureteroscopy, retrograde pyelogram and uretero-stent from Urology on 07/23 #Sepsis #UTI -On admission, Clinical picture meets 3/4 SIRS criteria: T 101.8 (>100.4 or <96.8F), RR 22 (>20/min), HR 111 (>90/min), WBC 11.8 (>12 or <4K or Bands >10%). -Lactic acid: 1.8 -UTI as a source of infection -On admission, UA showed: Urine blood 3+, Urine RBC 1000, Urine WBC 1438, urine Protein: 2+. Urine bacteria: 4+ Plan: -Continue IVF LR IV 125ml/hr -On Nava Catheter -Continue Ceftriaxone 1g IV #Rhabdomyolysis #2/2 Ground level falls #Acute Tubular Necrosis -Episodes of acute muscular weakness. But denies muscular pain or swelling, or brown/tea-colored urine. -Episodes of multiple falls due to weakness. Traumatic rhabdomyolysis likely due to falls. -No recent surgery, burn, electricity contact, physical restraint -No recent prolonged seizures or psychotic agitation, No medical history of myopathies, alcoholism, drugs (ex. Statins, illicit substances), recent infections, or alcoholism -No recent strenuous exercise, prolonged exposure to severe heat or humidity, and impaired heat loss from reduced sweating due to dehydration. -On admission, AST 125, ALT 59, LDH 284, CK initially 4472, 6 hrs later 3405, BUN:68, Cr:4.3, eGFR:10 -On admission, UA showed: Urine blood 3+, Urine RBC 1000, Urine WBC 1438, urine Protein: 2+. Urine bacteria: 4+ -Elevated CK suggests rhabdomyolysis, elevated AST >ALT suggests muscle injury as main source instead of liver. High LDH non-specific but rises with tissue breakdown. Plan: -Patient currently has JOSE and electrolyte abnormalities, requires aggressive IV hydration -Continue to monitor serum CK and electrolyte levels. -Continue IVF LR IV 125ml/hr -If pt volume overloaded, consider diuresis #Cholelithiasis #Pre-diabetic -Management per Primary Hospitalist team Thank you for allowing us to participate in the care of your patient. Assessment and plan discussed with my attending physician Dr. Fernanda Hollis (PGY-1)- Internal medicine resident Attending Provider Attestation/Addendum patient currently seen and examined with resident physician Dr. Hollis. Note reviewed, agree with findings and recommendations. Patient currently seen in medical floor. Family at bedside. JOSE secondary to prerenal azotemia with superimposed bilateral hydronephrosis. Patient also noted to have grade 4 uterine prolapse. Will benefit from urology and gynecology services. Creatinine tad better with IV fluids. Will monitor closely. No need for dialysis. Plan of care discussed with primary team. Thank you Hugo for allowing me to participate in the care of Ms. Cortes
--- NOTE | 2025-07-22 08:14 | XR_ITS ---
Examination: Retroperitoneal ultrasound, complete Technique: Multiple high resolution grayscale images of the retroperitoneum obtained, including kidneys and bladder. Exam date and time:July 22, 2025 1137 hours INDICATIONS: Acute renal insufficiency on laboratory examination today, CT examination 07/21/2025 moderate to prominent right hydronephrosis mild to moderate left hydronephrosis FINDINGS: Right kidney 11.8 cm cortex 1.7 cm Advanced right hydronephrosis Left kidney 14.2 cm cortex 1.7 cm Moderate hydronephrosis Contracted urinary bladder IMPRESSION: Advanced right moderate left hydronephrosis
[2025-07-22 08:44] LABS: Glucose Estimated Average 137 mg/dL (80-131); Hemoglobin A1C 6.4 % Hgb (4.8-6.0)
[2025-07-22] MEDS: cefTRIAXone/D5w 1gm IV premix 1 GM/50 ML BAG IV (09:27)
[2025-07-22] MEDS: Magnesium Sulfate 4 GM Ivpb 4 GM/50 ML BAG IV (10:49)
--- NOTE | 2025-07-22 13:22 | ESPR_ITS ---
<Statement entered by Costa Hanson MD - 07/22/25 17:30> Patient seen and examined in hospital bed denies having any concerning symptoms at this time. Patient has urethral prolapse which is most likely cause of patient's bilateral hydronephrosis; moreover, urology has been consulted and has agreed to cystoscopy and ureteral stent placement so long as patient does not seem to cautions. Patient has not been having any runny bowel movements since C. difficile precautions were placed; however, will discontinue precautions and monitor closely. Patient had a rapid response as noted above for new fever with tachycardia, sepsis alert was initiated with repeat CBC, lactic acid and blood cultures. Will continue treating with IV antibiotic regimen and monitor for any acute changes. I have personally seen and examined the patient. I agree with the resident's assessment and plan as documented below. Costa Hanson DO PGY-2 Internal Medicine - [facility] Documentation for date of: 07/22/25 Subjective Subjective Interval history: 74 yo female with PMHx of HTN admitted for sepsis and rhabdomyolysis management. Overnight events: No acute events overnight. Patient was seen and examined at bedside. AM vitals and labs reviewed. She is tachycardic and normotensive. Patient complains of mild to moderate pain in her abdomen. She notes having 3-4 bouts of diarrhea on 07/19 following treatment with antibiotics concerning for C. diff. Cr 4.3, BUN 85, Glucose 133, HbA1c 6.4, Creatine Kinase 3137, Hgb 11.4, Hct 33.7. Blood culture positive for gram negative rods. Pending urine culture. Kidney US with advanced right hydronephrosis and moderate left hydronephrosis. Exam Vital Signs Temp Pulse Resp BP Pulse Ox O2 Del Method 98.0 F 106 H 18 127/66 95 Room Air 07/22/25 11:58 07/22/25 12:00 07/22/25 11:58 07/22/25 11:58 07/22/25 11:58 07/22/25 11:58 Narrative Exam General: Patient alert, oriented, in no acute distress. HEENT: Normocephalic, atraumatic. PERRLA, EOMI, no scleral icterus or conjunctival injection. Oropharynx clear, mucous membranes moist. Neck: Supple, trachea midline, no thyromegaly or lymphadenopathy. Cardiac: Tachycardic and regular rhythm, normal S1/S2, no murmurs, rubs, or gallops. No peripheral edema. Lungs: Normal effort, clear to auscultation bilaterally, no wheezes, rales, or rhonchi. Abdomen: Soft, tender, non-distended. No rebound/guarding. Extremities: Warm, well-perfused, no clubbing, cyanosis, or edema. Full range of motion, no joint tenderness. Skin: Warm, dry, intact. No rashes, lesions, or ecchymoses. Neuro: Alert and oriented ?3. Speech fluent. Cranial nerves II?XII grossly intact. Psych: Appropriate mood and affect. Cooperative, good eye contact. Objective Labs 07/23/25 05:16 07/23/25 05:16 Labs: Laboratory Results - last 24 hr 07/21/25 07/21/25 07/21/25 14:45 16:54 20:46 WBC 11.8 H RBC 3.84 L Hgb 11.6 L Hct 34.3 L MCV 89 MCH 30.2 MCHC 33.8 RDW Std Deviation 42.0 Plt Count 108 L Neut % (Auto) 87 H Lymph % (Auto) 4 L Tift % (Auto) 8 Eos % (Auto) 1 Baso % (Auto) 0 Neut # (Auto) 10.2 H Lymph # (Auto) 0.5 L Tift # (Auto) 0.9 H Eos # (Auto) 0.1 Baso # (Auto) 0.0 Immature Gran # (Auto) 0.07 H Absolute Nucleated RBC 0.00 Immature Gran % 1 H Nucleated RBC % 0 PT 12.3 H INR 1.1 VBG pH 7.44 VBG pCO2 24 L VBG pO2 67 H VBG O2 Sat ([place]) 95 L VBG Base Excess -7 L Sodium 134 L 135 L Potassium 4.0 3.6 Chloride 101 103 Carbon Dioxide 19.3 L 15.6 L Anion Gap 14 16 BUN 68 H 69 H Creatinine 4.3 H* 3.6 H D Estim Creat Clear Calc Not Performed. 15.8 L eGFR 10 L* 13 L* BUN/Creatinine Ratio 16 19 Glucose [address] Glu mg/dL Hemoglobin A1c Calculated Osmolality 290 291 Lactic Acid 1.8 Calcium 9.2 8.0 L Corrected Calcium 9.2 8.8 Phosphorus 1.8 L Magnesium Total Bilirubin 1.0 AST 125 H ALT 59 H Alkaline Phosphatase 58 Lactate Dehydrogenase 284 H Total Creatine Kinase 4472 H 3405 H D Total Protein 7.1 Albumin 4.0 3.0 L D Globulin 3.1 Albumin/Globulin Ratio 1.3 Procalcitonin 77.81 H Ur Collection Type Catheter Urine Color [place] A Urine Clarity Turbid A Urine pH 8.0 H Ur Specific [place] 1.010 Urine Protein 2+ A Urine Glucose (UA) Negative Urine Ketones Negative Urine Blood 3+ A Urine Nitrite Negative Urine Bilirubin Negative Urine Urobilinogen (Auto) Negative Ur Leukocyte Esterase Positive Urine RBC 1000 H Urine WBC 1438 H Ur Squamous Epith Cells 35 H Urine Bacteria 4+ A Ur Culture Indicated? Contaminated 07/22/25 07/22/25 04:22 04:27 WBC 8.0 RBC 3.72 L Hgb 11.4 L Hct 33.7 L MCV 91 MCH 30.6 MCHC 33.8 RDW Std Deviation 43.2 Plt Count 88 L Neut % (Auto) 84 H Lymph % (Auto) 6 L Tift % (Auto) 9 Eos % (Auto) 0 Baso % (Auto) 0 Neut # (Auto) 6.7 Lymph # (Auto) 0.4 L Tift # (Auto) 0.7 Eos # (Auto) 0.0 Baso # (Auto) 0.0 Immature Gran # (Auto) 0.09 H Absolute Nucleated RBC 0.00 Immature Gran % 1 H Nucleated RBC % 0 PT INR VBG pH VBG pCO2 VBG pO2 VBG O2 Sat ([place]ali) VBG Base Excess Sodium 137 Potassium 3.5 Chloride 102 Carbon Dioxide 19.5 L Anion Gap 16 BUN 85 H Creatinine 4.3 H* D Estim Creat Clear Calc 12.9 L eGFR 10 L* BUN/Creatinine Ratio [address] Glu mg/dL 137 H Hemoglobin A1c 6.4 H Calculated Osmolality 301 H Lactic Acid Calcium 8.9 Corrected Calcium Phosphorus 2.8 Magnesium 1.6 Total Bilirubin AST ALT Alkaline Phosphatase Lactate Dehydrogenase Total Creatine Kinase 3137 H D Total Protein Albumin Globulin Albumin/Globulin Ratio Procalcitonin Ur Collection Type Urine Color Urine Clarity Urine pH Ur Specific [place] Urine Protein Urine Glucose (UA) Urine Ketones Urine Blood Urine Nitrite Urine Bilirubin Urine Urobilinogen (Auto) Ur Leukocyte Esterase Urine RBC Urine WBC Ur Squamous Epith Cells Urine Bacteria Ur Culture Indicated? ABG Interpretation ABG results: 07/21/25 20:46 VBG pH 7.44 VBG pCO2 24 L VBG pO2 67 H VBG Base Excess -7 L Quality Measures Quality Measures none Advance care planning discussed with:: patient and spouse Assessment & Plan Assessment Current Active Medications: Generic Name Dose Route Start Last Admin Trade Name Freq PRN Reason Stop Dose Admin Acetaminophen 650 mg 07/21/25 21:13 Acetaminophen 325 Mg Tablet PO 08/20/25 21:12 Q4HR PRN Pain Scale 1-3 (Mild) Hydromorphone HCl 1 mg 07/21/25 21:15 Hydromorphone Inj 2 Mg/Ml Vial IVP 07/26/25 21:14 Q4HR PRN PAIN SCALE 7-10 Hydromorphone HCl 0.5 mg 07/21/25 21:15 Hydromorphone Inj 2 Mg/Ml Vial IVP 07/26/25 21:14 Q4HR PRN PAIN SCALE 4-6 Ceftriaxone Sodium/Dextrose 1 gm in 50 mls @ 100 mls/hr 07/22/25 09:00 07/22/25 09:27 Rocephin/D5w 1gm Iv Premix IV 07/29/25 08:59 100 mls/hr QDAY DARIEL Administration Lactated Ringer's 1,000 mls @ 125 mls/hr 07/22/25 08:15 Lactated Ringers IV 08/21/25 08:14 .Q8H DARIEL Plan Plan The patient is a 74-year-old female with a history of hypertension who is admitted for rhabdomyolysis and UTI evaluation and management #Sepsis in setting of UTI #VUR 2/2 to Bilateral hydronephrosis #Uterine Prolapse Patient presented 1 week of dysuria, hematuria, and a sensation of a full and distended bladder. The hydronephrosis is suspected from patient's history of uterine prolapse due to compression of the ureters. Patient had a rapid response event due to fever and tachycardia likely due to ongoing sepsis. Cr 4.3 (no known baseline), BUN 85. Blood culture positive for gram negative rods. Pending urine culture. CTAP (07/21/2025): Moderate to prominent right hydronephrosis, mild to moderate left hydronephrosis, no renal or ureteral calculi, mild urinary bladder wall thickening, highest on the differential list would be vesicoureteral reflux and significant urinary tract and bladder infection. Kidney US (07/22/2025) with advanced right hydronephrosis and moderate left hydronephrosis. Plan - Ordered renal function panel, urine electrolytes and creatinine - Continue ceftriaxone 1 gm IV - Urine culture, pending - Urology Dr. Wright will plan for b/l cystoscopy, b/l ureteroscopy, b/l retrograde pyelogram and b/l uretero-stent placement on 07/23 AM - Pain controlled with acetaminophen and Dilaudid as needed - Repeat CBC, lactic acid and blood cultures ordered for sepsis alert #S/p ground level fall #JOSE 2/ to Rhabdomylosis Patient experienced multiple falls due to weakness leading to muscle breakdown and rhabdomylosis. She denies muscular pain, swelling and hematuria. On admission, CK was 4472 now down trending to 3137. AST 125, ALT 59, LDH 284 UA showed: Urine blood 3+, Urine RBC 1000, Urine WBC 1438, Urine Protein: 2+. Urine bacteria: 4+. Plan - Continue 1L IV LR 125 ml/hr maintenance fluid - Continue to monitor creatinine kinase levels - On Ku Catheter #Cholelithiasis Found on CT abdominal pelvis. Abdominal pain, nausea, vomiting and postprandial pain. Plan - Continue to monitor #Pre-diabetic Patient's HgbA1c was 6.[address] Will [address] patient on sliding scale and monitor blood sugars. Plan - Started on insulin sliding scale - Monitor blood sugars Hospital Maintenance: Dispo: medsurg DVT ppx: Lovenox GI ppx: none Diet: NPO after midnight IV Lines: Peripheral IV Code Status: Full Code Patient seen and assessed under supervision of attending physician Dr. Bass. [facility], Internal Medicine Attending Provider Attestation/Addendum I have discussed and was present for the essential components of the history, physical examination, diagnosis, and treatment plan with the resident. I agree with the patient's care as documented by the resident and amended herein by me. Hugo Bass DO. Although this document has been carefully reviewed, there may still be some phonetic and other typographical errors. These errors are purely grammatical due to imperfections in the software program and should not be construed in any way to compromise the substance of the patient's medical care during this visit.
[2025-07-22] MEDS: ACETAMINOPHEN 500 MG TABLET 1000 MG PO (17:02)
[2025-07-22] MEDS: RINGERS LACTATED 1000 ML 1,000 ML 125 ML IV (17:02)
--- NOTE | 2025-07-22 17:09 | PD.RESEVENT ---
Documentation for date of: 07/22/25
--- NOTE | 2025-07-22 17:11 | PD.RESEVENT ---
Documentation for date of: 07/22/25 Event Note Event Note: Rapid response called sometime around 4:50 PM for patient in room 367, 74-year-old female for having a fever with a Tmax of 103.2 ?F along with tachycardia heart rate in the 110s, blood pressure stable 137/95 and saturating 93 on room air. Patient's airway/breathing/circulation assessed and intact; moreover, patient appears clinically stable and denies having any concerning symptoms at this time. Will discontinue patient's C. difficile precautions as she has not had any bowel movements since this morning. Urology is following the case and will hopefully go forward with cystoscopy and ureteral stent placement on 07/23. Will initiate 1000 mg Tylenol and will reorder CBC, lactic acid and blood cultures. Will continue monitor the patient for any acute changes and reassess the patient's uterine prolapse in the AM. Costa Hanson, DO PGY-2 Internal Medicine - [facility]
[2025-07-22 17:24] LABS: Lactate (Lactic Acid) 1.6 mMol/L (0.4-2.0)
[2025-07-22 17:26] LABS: Basophils # (Auto) 0.0 Thou/mm3 (0.0-0.2); Basophils % (Auto) 0 % (0-2.5); Eosinophils # (Auto) 0.0 Thou/mm3 (0.0-0.5); Eosinophils % (Auto) 0 % (0-10); Hematocrit 31.5 % (36.0-46.0); Hemoglobin 11.0 g/dL (12.0-16.0); Immature Granulocytes Auto 0.07 Thou/mm3 (0.00-0.00); Lymphocytes # (Auto) 0.4 Thou/mm3 (1.0-4.8); Lymphocytes % (Auto) 6 % (10-50); Mean Corpuscular HGB Conc 34.9 g/dl (31.0-37.0); Mean Corpuscular Hemoglobin 31.0 pg (25.0-35.0); Mean Corpuscular Volume 89 fL (80-100); Monocytes # (Auto) 0.6 Thou/mm3 (0.0-0.8); Monocytes % (Auto) 9 % (0-12); Neutrophils # (Auto) 5.6 Thou/mm3 (1.8-7.7); Neutrophils % (Auto) 83 % (37-80); Nucleated Red Blood Cell # 0.00 Thou/mm3 (0.00-0.00); Nucleated Red Blood Cell % 0 /100 WBC (0); Platelet Count 94 Thou/mm3 (140-440); RDW Standard Deviation 43.4 fL (36.4-46.3); Red Blood Count 3.55 Miln/mm3 (4.00-5.20); White Blood Count 6.7 Thou/mm3 (3.6-11.0)
[2025-07-22 17:52] LABS: Albumin, Serum 3.6 gm/dL (3.4-4.8); Anion Gap 14 (7-16); BUN/Creatinine Ratio 19 Ratio (12-20); Blood Urea Nitrogen 70 mg/dL (9-23); Calcium 8.7 mg/dL (8.3-10.6); Calcium (Corrected) 9.0 mg/dL (8.5-10.1); Carbon Dioxide 18.7 mMol/L (20.0-31.0); Chloride 104 mMol/L (98-107); Creatinine (Component) 3.7 mg/dL (0.6-1.3); Estimated Creatinine Clearance 15.0 mL/min (>60); Glucose 142 mg/dL (74-106); Osmolality,Calculated 296 (275-295); Phosphorous 2.9 mg/dL (2.4-5.1); Potassium 3.3 mMol/L (3.4-5.1); Sodium 137 mMol/L (136-145); eGFR 12 See Note
[2025-07-22] MEDS: ONDANSETRON INJ 2 MG/ML INJ 2 ML 4 MG IVP (18:33)
[2025-07-22] MEDS: PIPERACILLIN/TAZO 2.25GM INJ 2.25 GM in SODIUM CHLORIDE 0.9% (Popper) 50 ML IV (20:27)
[2025-07-23] VITALS (16 sets, daily range): BP systolic 98–121; BP diastolic 46–72; PULSE 63–90; RESP 16–95; TEMP 36.1–36.6; O2SAT 92–100; BMI 41.2
[2025-07-23] MEDS: RINGERS LACTATED 1000 ML 1,000 ML 125 ML IV ×2 (01:32→16:06)
[2025-07-23 05:50] LABS: Basophils # (Auto) 0.0 Thou/mm3 (0.0-0.2); Basophils % (Auto) 0 % (0-2.5); Eosinophils # (Auto) 0.0 Thou/mm3 (0.0-0.5); Eosinophils % (Auto) 0 % (0-10); Hematocrit 31.1 % (36.0-46.0); Hemoglobin 10.7 g/dL (12.0-16.0); Immature Granulocytes Auto 0.07 Thou/mm3 (0.00-0.00); Lymphocytes # (Auto) 0.4 Thou/mm3 (1.0-4.8); Lymphocytes % (Auto) 5 % (10-50); Mean Corpuscular HGB Conc 34.4 g/dl (31.0-37.0); Mean Corpuscular Hemoglobin 31.1 pg (25.0-35.0); Mean Corpuscular Volume 90 fL (80-100); Monocytes # (Auto) 0.7 Thou/mm3 (0.0-0.8); Monocytes % (Auto) 10 % (0-12); Neutrophils # (Auto) 6.0 Thou/mm3 (1.8-7.7); Neutrophils % (Auto) 83 % (37-80); Nucleated Red Blood Cell # 0.00 Thou/mm3 (0.00-0.00); Nucleated Red Blood Cell % 0 /100 WBC (0); Platelet Count 93 Thou/mm3 (140-440); RDW Standard Deviation 44.9 fL (36.4-46.3); Red Blood Count 3.44 Miln/mm3 (4.00-5.20); White Blood Count 7.2 Thou/mm3 (3.6-11.0)
[2025-07-23] MEDS: PIPERACILLIN/TAZO 2.25GM INJ 2.25 GM in SODIUM CHLORIDE 0.9% (Popper) 50 ML IV ×3 (05:51→21:31)
[2025-07-23] MEDS: HYDROmorphone INJ 2 MG/ML VIAL 1 MG IVP (05:53)
[2025-07-23 06:11] LABS: Anion Gap 13 (7-16); BUN/Creatinine Ratio 19 Ratio (12-20); Blood Urea Nitrogen 66 mg/dL (9-23); Calcium 8.5 mg/dL (8.3-10.6); Carbon Dioxide 19.9 mMol/L (20.0-31.0); Chloride 105 mMol/L (98-107); Creatinine (Component) 3.5 mg/dL (0.6-1.3); Estimated Creatinine Clearance 15.9 mL/min (>60); Glucose 139 mg/dL (74-106); Magnesium 2.6 mg/dL (1.6-2.6); Osmolality,Calculated 296 (275-295); Phosphorous 3.9 mg/dL (2.4-5.1); Potassium 3.9 mMol/L (3.4-5.1); Sodium 138 mMol/L (136-145); eGFR 13 See Note
--- NOTE | 2025-07-23 08:50 | ESCONSULT_ITS ---
RE: HERMELINDA VILLALBA : 1950 DATE OF CONSULTATION: 07/22/2025 CHIEF COMPLAINT: 1. Gross hematuria. 2. Distended bladder. 3. History of dysuria. HISTORY OF PRESENT ILLNESS: This is a 74-year-old female. She is known case of hypertension. She came to the emergency room on 07/21/2025. The chief complaint at that time was weakness following ground level fall. Three days prior to her admission to the hospital through the emergency room, she had history of generalized weakness. There was no loss of consciousness. Denies any urinary incontinence. The patient has history of fatigue, sleepiness, and decreased appetite before the fall. There was no history of chest pain, tinnitus, nausea or vomiting. The patient also has started taking Mounjaro 3 weeks prior to her coming to the emergency room. The patient does have history of gross hematuria. She also has uterine prolapse, for which she is seeing physician in [place]. Past medical history, family history, review of the system, personal history, please refer to patient's history form dated 07/21/2025, it is in HPI, in EMR. PHYSICAL EXAMINATION: GENERAL: Condition is satisfactory and not in acute distress. HEENT: Normocephalic and atraumatic. Eyes: No anemia or jaundice. NECK: Supple. Trachea is central. Thyroid is not enlarged. CHEST: Symmetrical. HEART: Regular rate and rhythm. ABDOMEN: Obese. No masses. Liver, spleen, and kidney not palpable. No CVA tenderness. PAST MEDICAL HISTORY: As mentioned above. FAMILY HISTORY: Noncontributory. SURGICAL HISTORY: None. SOCIAL HISTORY: Denies any history of smoking. VARIOUS LABORATORIES: WBC is 11.8, hemoglobin is 11.6, and hematocrit 34.3. Serum sodium 134, bicarbonate 19.3, BUN 60, creatinine is 4.3, and GFR is 10. The patient had CAT scan of the abdomen and pelvis. This revealed bilateral hydroureteronephrosis more on the right side than on the left side. OTHER ASSOCIATED DIAGNOSES: 1. Sepsis in the setting of urinary tract infection and bilateral hydronephrosis. 2. Status post ground level fall and rhabdomyolysis. 3. Acute tubular necrosis. 4. Acute kidney injury and bilateral hydronephrosis. PLAN: I discussed with the patient in great detail about doing a cystoscopic examination, bilateral retrograde pyelogram, bilateral ureteroscopy, and possible placement of bilateral ureteral stent. Procedure and complications of which are discussed with patient in great detail. She is scheduled for this procedure to be done tomorrow in the hospital pending clearance from the PCP. DT: 16:25:42 TT: 18:07:00 Ref: [id number] - TID: [id number]
--- NOTE | 2025-07-23 09:15 | ESPR_ITS ---
Documentation for date of: 07/23/25 Subjective Subjective Interval history: 74y/o F with PMH of HTN, uterine prolapse established 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 The episodes occurred once daily over the past three days during which she did not have any chest pain, paplation, or loss of consciousness. She reports being on Mounjaro and notes an approximate 10 pounds weight loss since initiation. Additionally, she endorses urinary symptoms for the past week, including coining difficulties, dysuria, hematuria and a sensation of incomplete bladder emptying. At the time she of ED visit, patient complained of Nausea, mouth dryness and diarrhea. Denies chest pain, palpation, SOB, abdominal pain, N/V, fevers or chills. Pt was admitted for rhabdomyolysis/UTI evaluation and management. Nephrology has been consulted for management of JOSE, rhabomyolysis and UTI. ED course: -Initial vitals were BP 104/25, pulse 111, respiratory 18, temp 101.8, O2 75% on room air. -Labs significant for WBC 11.8, hemoglobin 11.6, hematocrit 34.3, platelet 108, sodium 134, bicarb 19.3, BUN 60, creatinine 4.3, eGFR 10, AST 125, ALT 59, lactic creatinine is 204, creatinine kinase 4472, Pro-Arthur 77.81. VBG pH 7.44, CO2 24, O2 67. UA showed turbid urine, LE positive, 1000 RBC, 14,000 WBC, 4+ bacteria. -Imaging included CT A/P showed moderate to prominent right hydronephrosis, mild to moderate left hydronephrosis but no obstructive lesions seen. Suspect to be due to vesicoureteral reflux and significant urinary tract and bladder infection. CT head negative for hemorrhage or mass affect. EKG showed sinus tachycardia. -In the ED, patient was given 1 L LR, started nava cath, made 170cc urine after nava.Post nava bladder showed 143 cc Past Medical History: Mentioned above Family History: Noncontributory Surgical History: none Social History: Denies history of smoking, denies current alcohol use, denies recreational drug use lives withs . 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 Current Medications: Losartan and omeprazole Allergies: No known drug allergies 07/22/2025: Labs reviewed and patient examined at the bedside. Patient's past Cr was 0.67 in 2023. On admission, her Cr 4.3 which shows that she have JOSE. The cause of Jose is likely to be multi-factorial. Pre-renal cause include nausea, vomiting, and diarrhea, likely caused by ozempic, and since she had significant weight loss after using it, perhaps the dosage might be too much for patient's body. Instrinsic renal cause likely due to ATN caused by rhabdomyolysis. Post- renal as evidenced by CT scan and Renal US showing bilateraly hydronephrosis, but cause is less clear because based on ED note, patient has drained very little urine when nava catheter was first introduced. The cause can be due to uterine prolapse. Vesicoureteral reflux can contribute to the picture of bilateral hydronephrosis and anuria despite nava, but VUR itself does not ususally cause an immediate postrenal obstruction. However, it does predispose patients to UTI and chronic scarring. Will continue to monitor patient. Will continue IVF and abx. 07/23/2025: Labs reviewed and patient examined at the bedside. Cr currently 3.5 . Patient also showed substantial uterine prolapse that would have contributed to patient's UTI. Pending cystoscopy and ureteral stent placement pending from urology today. Advise OBGYN consult for management of uterine prolapse. Patient's UOP was 1.4 L. Nava bag showed dark red urine. Bladder irrigation is recommended. Exam Vital Signs Temp Pulse Resp BP Pulse Ox O2 Del Method 97.2 F 77 18 118/46 L 92 L Room Air 07/23/25 08:00 07/23/25 08:00 07/23/25 08:00 07/23/25 08:00 07/23/25 08:00 07/23/25 08:00 Narrative Exam General: No acute distress, well nourished, AAO x3 Eye: PERRL, EOMI, normal conjunctiva, no scleral icterus HENT: Normocephalic, atraumatic, hearing intact to conversation at normal volume, moist oral mucosa Neck: Supple, non-tender, no JVD, no lymphadenopathy Lungs: Non-labored respirations, symmetric chest rise, Clear to auscultate bilaterally, No wheezing, rhonchi, crackles Heart: Peripheral pulses intact bilaterally, Regular Rate and Rhythm. Abdomen: Soft, non-tender, non-distended, no palpable masses Musculoskeletal: Normal range of motion and strength, No cyanosis or edema, No visible joint swelling, Ecchymosis around left eye Skin: Skin is warm, dry, no rashes or lesions. Psychiatric: Cooperative, appropriate mood and affect, Awake and alert, not agitated Neuro: Cranial nerves II-XII grossly intact. Sensations intact to light touch. Objective Labs 07/23/25 05:16 07/23/25 05:16 Labs: Laboratory Results - last 24 hr 07/22/25 07/23/25 17:10 05:16 WBC 6.7 7.2 RBC 3.55 L 3.44 L Hgb 11.0 L 10.7 L Hct 31.5 L 31.1 L MCV 89 90 MCH 31.0 31.1 MCHC 34.9 34.4 RDW Std Deviation 43.4 44.9 Plt Count 94 L 93 L Neut % (Auto) 83 H 83 H Lymph % (Auto) 6 L 5 L Whitman % (Auto) 9 10 Eos % (Auto) 0 0 Baso % (Auto) 0 0 Neut # (Auto) 5.6 6.0 Lymph # (Auto) 0.4 L 0.4 L Whitman # (Auto) 0.6 0.7 Eos # (Auto) 0.0 0.0 Baso # (Auto) 0.0 0.0 Immature Gran # (Auto) 0.07 H 0.07 H Absolute Nucleated RBC 0.00 0.00 Immature Gran % 1 H 1 H Nucleated RBC % 0 0 Sodium 137 138 Potassium 3.3 L 3.9 D Chloride 104 105 Carbon Dioxide 18.7 L 19.9 L Anion Gap 14 13 BUN 70 H 66 H Creatinine 3.7 H D 3.5 H Estim Creat Clear Calc 15.0 L 15.9 L eGFR 12 L* 13 L* BUN/Creatinine Ratio 19 19 Glucose 142 H 139 H Calculated Osmolality 296 H 296 H Lactic Acid 1.6 Calcium 8.7 8.5 Corrected Calcium 9.0 Phosphorus 2.9 3.9 Magnesium 2.6 Albumin 3.6 D ABG Interpretation ABG results: 07/21/25 20:46 VBG pH 7.44 VBG pCO2 24 L VBG pO2 67 H VBG Base Excess -7 L Quality Measures Quality Measures none Advance care planning discussed with:: patient and other Assessment & Plan Assessment Current Active Medications: Generic Name Dose Route Start Last Admin Trade Name Freq PRN Reason Stop Dose Admin Acetaminophen 650 mg 07/21/25 21:13 Acetaminophen 325 Mg Tablet PO 08/20/25 21:12 Q4HR PRN Pain Scale 1-3 (Mild) Dextrose 25 ml 07/22/25 17:56 Dextrose 50%-Water Inj 50 Ml Syringe IV 08/21/25 17:55 Q15MIN PRN BG 50-70 responsive npo pt Dextrose 50 ml 07/22/25 17:56 Dextrose 50%-Water Inj 50 Ml Syringe IV 08/21/25 17:55 Q15MIN PRN BG <50 OR BG <70 & pt unresponsive Glucagon 1 mg 07/22/25 17:56 Glucagon Inj 1 Mg Vial IM Q15MIN PRN BG <70, and no IV access Hydromorphone HCl 1 mg 07/21/25 21:15 07/23/25 05:53 Hydromorphone Inj 2 Mg/Ml Vial IVP 07/26/25 21:14 1 mg Q4HR PRN Administration PAIN SCALE 7-10 Hydromorphone HCl 0.5 mg 07/21/25 21:15 Hydromorphone Inj 2 Mg/Ml Vial IVP 07/26/25 21:14 Q4HR PRN PAIN SCALE 4-6 Lactated Ringer's 1,000 mls @ 125 mls/hr 07/22/25 08:15 07/23/25 01:32 Lactated Ringers IV 08/21/25 08:14 125 mls/hr .Q8H DARIEL Administration Piperacillin Sod/Tazobactam 50 mls @ 100 mls/hr 07/22/25 18:30 07/23/25 05:51 Sod 2.25 gm/ Sodium Chloride IV 07/29/25 18:29 100 mls/hr Q8HR DARIEL Administration Protocol Insulin Human Lispro 0 unit 07/22/25 18:00 07/23/25 06:06 Insulin Lispro (Admelog) 1 Unit/0.01 Ml Unit SC 08/21/25 17:59 Not Given Q6HR DARIEL Protocol Ondansetron HCl 4 mg 07/22/25 18:21 07/22/25 18:33 Ondansetron Inj 2 Mg/Ml Inj 2 Ml IVP 08/21/25 18:20 4 mg Q6HR PRN Administration NAUSEA OR VOMITING Protocol Plan 74y/o F with PMH of HTN, uterine prolapse established 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 Pt was admitted for rhabdomyolysis/UTI evaluation and management. Nephrology has been consulted for management of JOSE, rhabomyolysis and UTI. #JOSE #2/2 Nausea/Vomiting/Diarrhea VS Rhabdomyolysis VS Urinary retention -Patient's past Cr was 0.67 in 2023. On admission, her Cr 4.3 which shows that she have JOSE. -Upon admission, BUN:68, Cr:4.3, eGFR:10. No past labs to know baseline. -No edema, lungs clear, mucus membranes dry. -CTAP (07/21/2025): Moderate to prominent right hydronephrosis, mild to moderate left hydronephrosis, no renal or ureteral calculi, mild urinary bladder wall thickening, highest on the differential list would be vesicoureteral reflux and significant urinary tract and bladder infection -Renal US (07/22/2025): Right kidney 11.8 cm cortex 1.7 cm, Advanced right hydronephrosis, Left kidney 14.2 cm cortex 1.7 cm, Moderate Left hydronephrosis, Contracted urinary bladder. -The cause of Jose is likely to be multi-factorial. Pre-renal cause include nausea, vomiting, and diarrhea, likely caused by Mounjaro, and since she had significant weight loss after using it, perhaps the dosage might be too much for patient's body VS Instrinsic renal cause likely due to ATN caused by rhabdomyolysis VS Post-renal as evidenced by CT scan and Renal US showing bilateral hydronephrosis, but cause is less clear because based on ED note, patient has drained very little urine when nava catheter was first introduced. The cause can be due to uterine prolapse. Vesicoureteral reflux can contribute to the picture of bilateral hydronephrosis and anuria despite nava, but VUR itself does not ususally cause an immediate postrenal obstruction. However, it does predispose patients to UTI and chronic scarring. Plan: -Started 1 L IV LR 125ml/hr maintenance fluid -Avoid nephrotoxins -Renally dose medication -On Nava Catheter -Pending cystoscopy, ureteroscopy, retrograde pyelogram and uretero-stent from Urology on 07/23 -Recommend OBGYN consult for Uterine prolapse evaluation. #Sepsis #UTI -On admission, Clinical picture meets 3/4 SIRS criteria: T 101.8 (>100.4 or <96.8F), RR 22 (>20/min), HR 111 (>90/min), WBC 11.8 (>12 or <4K or Bands >10%). -Lactic acid: 1.8 -UTI as a source of infection -On admission, UA showed: Urine blood 3+, Urine RBC 1000, Urine WBC 1438, urine Protein: 2+. Urine bacteria: 4+ Plan: -Continue IVF LR IV 125ml/hr -On Nava Catheter -Continue Zosyn 2.25g IV q8hr #Rhabdomyolysis #2/2 Ground level falls #Acute Tubular Necrosis -Episodes of acute muscular weakness. But denies muscular pain or swelling, or brown/tea-colored urine. -Episodes of multiple falls due to weakness. Traumatic rhabdomyolysis likely due to falls. -No recent surgery, burn, electricity contact, physical restraint -No recent prolonged seizures or psychotic agitation, No medical history of myopathies, alcoholism, drugs (ex. Statins, illicit substances), recent infections, or alcoholism -No recent strenuous exercise, prolonged exposure to severe heat or humidity, and impaired heat loss from reduced sweating due to dehydration. -On admission, AST 125, ALT 59, LDH 284, CK initially 4472, 6 hrs later 3405, BUN:68, Cr:4.3, eGFR:10 -On admission, UA showed: Urine blood 3+, Urine RBC 1000, Urine WBC 1438, urine Protein: 2+. Urine bacteria: 4+ -Elevated CK suggests rhabdomyolysis, elevated AST >ALT suggests muscle injury as main source instead of liver. High LDH non-specific but rises with tissue breakdown. Plan: -Patient currently has JOSE and electrolyte abnormalities, requires aggressive IV hydration -Continue to monitor serum CK and electrolyte levels. -Continue IVF LR IV 125ml/hr -If pt volume overloaded, consider diuresis #Cholelithiasis #Pre-diabetic -Management per Primary Hospitalist team Thank you for allowing us to participate in the care of your patient. Assessment and plan discussed with my attending physician Dr. Fernanda Hollis ([id number]-1)- Internal medicine resident Attending Provider Attestation/Addendum patient currently seen and examined with resident physician Dr. Hollis. Note reviewed, agree with findings and recommendations. Patient currently seen in medical floor. Family at bedside. JOSE secondary to prerenal azotemia with superimposed bilateral hydronephrosis. Patient also noted to have grade 4 uterine prolapse. Will benefit from urology and gynecology services. Creatinine tad better with IV fluids. Will monitor closely. Plan of care discussed with primary team. Spoke to Dr Wright-planning to place ureteral stents for bilateral hydronephrosis. Might need a pessary. Thank you Hugo for allowing me to participate in the care of Ms. Cortes
--- NOTE | 2025-07-23 09:24 | PC.SS ---
Late note 07-22-25: SS met with patient regarding his d/c plan. Pt is alert/oriented. Pt was admitted for Rhabddo, JOSE, UTI. Pt confirmed demographic and contact information is correct on facesheet. Pt resides with and grandson. Pt ambulates independently without assistance or DME. Pt is ok with all ADLs. Patient?s pharmacy of choice is [facility] [address]. Pt named her Godfrey Cortes medical decision maker if she is unable. SS provided verbal d/c options for home or SNF. Patient?s choice is to return home upon d/c. Pt does not have an advance directive, SS offered, and pt was receptive. Pt states she is not diabetic and is not on dialysis. Pt followed up with PCP in June. D/C plan: Return home Next of Kin: Godfrey Cortes, , phone# [phone] PCP: Dr. Ross Address: Correct on facesheet
--- NOTE | 2025-07-23 09:36 | PC.NURSE ---
Spoke with ANNE MARIE Joe from surgery at 0936 to give report on patient for her upcoming procedure.
--- NOTE | 2025-07-23 10:32 | PC.SS ---
Follow up note: Dr. Huynh is consulting. Pt will have Cystoscopy.
--- NOTE | 2025-07-23 11:30 | XR_ITS ---
Examination: Bilateral retrograde pyelograms with without KUB Fluoroscopy 128 spot fluoroscopic films of the abdomen Date and time: July 23, 2025 1404 hours INDICATIONS: Significant hydronephrosis bilaterally on CT stone study July 21, 2025, bilateral retrogrades with stent placement TECHNIQUE AND FINDINGS: 128 spot films of the abdomen Opacification of bilateral dilated renal collecting systems Fluoroscopy 1 minute 10 seconds radiation dose 14.45 milligray IMPRESSION: Retrograde pyelography as above
--- NOTE | 2025-07-23 12:31 | PC.NURSE ---
Patient left to OR at 1220 pm.
--- NOTE | 2025-07-23 14:05 | SUR.OPER ---
Daughter (Pavithra) updated on case status/progress via phone by Gissell KENNEY at approx. 1402.
--- NOTE | 2025-07-23 14:40 | SUR.PHASEI ---
pt received from OR in recovery bay 1. pt asleep but responds to voice, breathing unlabored on oxymask 6l. v/s stable. pt has nava cath in place. report received from Dr. Latif and Conrad KENNEY.
--- NOTE | 2025-07-23 14:44 | ESPR_ITS ---
Documentation for date of: 07/23/25 Subjective Subjective Interval history: No acute events overnight. Patient had stable vitals and continued on Zosyn and LR 125. Patient did not have bowel movements overnight nor was able to ambulate. Her abdominal pain has overall decreased and she notes to be feeling better. Labs notable for downtrending BUN 66 and Cr 3.5, normal lactate 1.6. Exam Vital Signs Temp Pulse Resp BP Pulse Ox O2 Del Method 97.2 F 90 18 118/46 L 92 L Room Air 07/23/25 08:00 07/23/25 12:00 07/23/25 08:00 07/23/25 08:00 07/23/25 08:00 07/23/25 08:00 Narrative Exam General: Patient alert, oriented, in no acute distress. HEENT: Normocephalic, atraumatic. PERRLA, EOMI, no scleral icterus or conjunctival injection. Oropharynx clear, mucous membranes moist. Neck: Supple, trachea midline, no thyromegaly or lymphadenopathy. Cardiac: Tachycardic and regular rhythm, normal S1/S2, no murmurs, rubs, or gallops. No peripheral edema. Lungs: Normal effort, clear to auscultation bilaterally, no wheezes, rales, or rhonchi. Abdomen: Soft, tender, non-distended. No rebound/guarding. Extremities: Warm, well-perfused, no clubbing, cyanosis, or edema. Skin: Warm, dry, intact. No rashes, lesions, or ecchymoses. Neuro: Alert and oriented ?3. Speech fluent. Cranial nerves II?XII grossly intact. Psych: Appropriate mood and affect. Cooperative, good eye contact. Objective Labs 07/24/25 04:55 07/24/25 04:55 Labs: Laboratory Results - last 24 hr 07/22/25 07/23/25 17:10 05:16 WBC 6.7 7.2 RBC 3.55 L 3.44 L Hgb 11.0 L 10.7 L Hct 31.5 L 31.1 L MCV 89 90 MCH 31.0 31.1 MCHC 34.9 34.4 RDW Std Deviation 43.4 44.9 Plt Count 94 L 93 L Neut % (Auto) 83 H 83 H Lymph % (Auto) 6 L 5 L Winkler % (Auto) 9 10 Eos % (Auto) 0 0 Baso % (Auto) 0 0 Neut # (Auto) 5.6 6.0 Lymph # (Auto) 0.4 L 0.4 L Winkler # (Auto) 0.6 0.7 Eos # (Auto) 0.0 0.0 Baso # (Auto) 0.0 0.0 Immature Gran # (Auto) 0.07 H 0.07 H Absolute Nucleated RBC 0.00 0.00 Immature Gran % 1 H 1 H Nucleated RBC % 0 0 Sodium 137 138 Potassium 3.3 L 3.9 D Chloride 104 105 Carbon Dioxide 18.7 L 19.9 L Anion Gap 14 13 BUN 70 H 66 H Creatinine 3.7 H D 3.5 H Estim Creat Clear Calc 15.0 L 15.9 L eGFR 12 L* 13 L* BUN/Creatinine Ratio 19 19 Glucose 142 H 139 H Calculated Osmolality 296 H 296 H Lactic Acid 1.6 Calcium 8.7 8.5 Corrected Calcium 9.0 Phosphorus 2.9 3.9 Magnesium 2.6 Albumin 3.6 D ABG Interpretation ABG results: 07/21/25 20:46 VBG pH 7.44 VBG pCO2 24 L VBG pO2 67 H VBG Base Excess -7 L Quality Measures Quality Measures none Advance care planning discussed with:: patient and spouse Assessment & Plan Assessment Current Active Medications: Generic Name Dose Route Start Last Admin Trade Name Freq PRN Reason Stop Dose Admin Acetaminophen 650 mg 07/21/25 21:13 Acetaminophen 325 Mg Tablet PO 08/20/25 21:12 Q4HR PRN Pain Scale 1-3 (Mild) Dextrose 25 ml 07/22/25 17:56 Dextrose 50%-Water Inj 50 Ml Syringe IV 08/21/25 17:55 Q15MIN PRN BG 50-70 responsive npo pt Dextrose 50 ml 07/22/25 17:56 Dextrose 50%-Water Inj 50 Ml Syringe IV 08/21/25 17:55 Q15MIN PRN BG <50 OR BG <70 & pt unresponsive Fentanyl Citrate 25 mcg 07/23/25 13:05 Fentanyl Cit Inj 50 Mcg/Ml Amp 2ml IVP 07/23/25 15:06 Q5M PRN PAIN SCALE 7-10 (Severe Protocol Fentanyl Citrate 25 mcg 07/23/25 13:05 Fentanyl Cit Inj 50 Mcg/Ml Amp 2ml IVP 07/23/25 15:06 Q5M PRN PAIN SCALE 4-6 (Moderate Protocol Fentanyl Citrate 25 mcg 07/23/25 13:05 Fentanyl Cit Inj 50 Mcg/Ml Amp 2ml IVP 07/23/25 15:06 Q5M PRN PAIN SCALE 1-3 (mild Protocol Glucagon 1 mg 07/22/25 17:56 Glucagon Inj 1 Mg Vial IM Q15MIN PRN BG <70, and no IV access Hydromorphone HCl 1 mg 07/21/25 21:15 07/23/25 05:53 Hydromorphone Inj 2 Mg/Ml Vial IVP 07/26/25 21:14 1 mg Q4HR PRN Administration PAIN SCALE 7-10 Hydromorphone HCl 0.5 mg 07/21/25 21:15 Hydromorphone Inj 2 Mg/Ml Vial IVP 07/26/25 21:14 Q4HR PRN PAIN SCALE 4-6 Lactated Ringer's 1,000 mls @ 125 mls/hr 07/22/25 08:15 07/23/25 01:32 Lactated Ringers IV 08/21/25 08:14 125 mls/hr .Q8H DARIEL Administration Piperacillin Sod/Tazobactam 50 mls @ 100 mls/hr 07/22/25 18:30 07/23/25 05:51 Sod 2.25 gm/ Sodium Chloride IV 07/29/25 18:29 100 mls/hr Q8HR DARIEL Administration Protocol Insulin Human Lispro 0 unit 07/22/25 18:00 07/23/25 11:43 Insulin Lispro (Admelog) 1 Unit/0.01 Ml Unit SC 08/21/25 17:59 Not Given Q6HR DARIEL Protocol Ondansetron HCl 4 mg 07/22/25 18:21 07/22/25 18:33 Ondansetron Inj 2 Mg/Ml Inj 2 Ml IVP 08/21/25 18:20 4 mg Q6HR PRN Administration NAUSEA OR VOMITING Protocol Plan The patient is a 74-year-old female with a history of hypertension who is admitted for rhabdomyolysis and UTI evaluation and management. #Sepsis in setting of UTI and bacteremia #Bacteremia 2/2 to E coli #UTI 2/2 to proteus #Bilateral hydronephrosis 2/2 to Uterine Prolapse Patient complained of symptoms of UTI particularly dysuria, hematuria and sensation of full distended bladder. Blood culture from 07/21 revealed presence of E. coli and IV Zosyn was started as broad spectrum to cover gram negatives and gram positives including E coli. Retrograde Pyelogram (07/23/25) showed opacification of bilateral dilated renal collecting systems. Cystoscopy (07/23/25) showed high-grade renal obstruction, kinking of the ureter at a 90 degree mostly on the R side from the bladder into the prolapsed bladder; a lot pus like material drained from both kidneys. She has high-grade obstruction on the right side which was worse than the left side. Stent on both sides under fluoroscopic examination; the proximal end of the stents was in the upper pole calyx distal in the bladder. Plan - Pending renal function panel, urine electrolytes and creatinine, and urine culture - Started IV Zosyn 2.25 gm for broad spectrum coverage, descalate to CTX - Pain controlled with Acetaminophen and Dilaudid as needed - Pending blood cultures ordered for sepsis alert - Informed patient to followup outpatient ObGyn, but not consulting at this time #S/p ground level fall #JOSE 2/2 to Rhabdomylosis Patient experienced multiple falls due to weakness leading to muscle breakdown and rhabdomylosis. She denies muscular pain, swelling and hematuria. On admission, CK was 4472 now down trending to 3137. AST 125, ALT 59, LDH 284 UA showed: Urine blood 3+, Urine RBC 1000, Urine WBC 1438, Urine Protein: 2+. Urine bacteria: 4+. Plan - Continue 1L IV LR 125 ml/hr maintenance fluid - Continue to monitor creatinine kinase levels - On Ku Catheter #Cholelithiasis Found on CT abdominal pelvis. Abdominal pain, nausea, vomiting and postprandial pain. Plan - Continue to monitor #Pre-diabetic Patient's HgbA1c was 6.[address] patient on sliding scale and monitor blood sugars. Plan - Started on insulin sliding scale - Monitor blood sugars Hospital Maintenance: Dispo: medsurg DVT ppx: Lovenox GI ppx: none Diet: NPO after midnight IV Lines: Peripheral IV Code Status: Full Code Patient seen and assessed under supervision of attending physician Dr. Bass. Jimmy PATHAK-, Internal Medicine Attending Provider Attestation/Addendum I have discussed and was present for the essential components of the history, physical examination, diagnosis, and treatment plan with the resident. I agree with the patient's care as documented by the resident and amended herein by me. Hugo Bass DO. Although this document has been carefully reviewed, there may still be some phonetic and other typographical errors. These errors are purely grammatical due to imperfections in the software program and should not be construed in any way to compromise the substance of the patient's medical care during this visit.
--- NOTE | 2025-07-23 14:46 | ESOP_ITS ---
Date of Procedure 07/23/25 Pre Op Diagnosis Complete uterovaginal prolapse, bilateral severe hydronephrosis, urosepsis, hematuria at JOSE Post Op Diagnosis Same plus urethral stenosis plus kinking of bilateral ureters mostly on the right side high-grade obstruction and urethral stenosis Procedure Cystoscopic examination bilateral retrograde pyelogram bilateral ureteroscopy placement of bilateral ureteral stents urethral dilation and calibration insertion of Ku catheter placement of vaginal pessary Findings High-grade renal obstruction, kinking of the ureter at a 90 degree from the b ladder into the prolapsed prolapsed bladder a lot of pus like material drained from both kidneys Procedure Description Indications for procedure this is a 74-year-old female she is admitted in the hospital. She has urosepsis and she has bilateral renal high-grade obstruction and has JOSE and complete utrorovaginal prolapse she was recommended above procedure procedure and complications were discussed with the patient in great detail informed consent is obtained also placement of pessary Patient was brought to the operating room in a satisfactory condition after appropriate premedication was put on the operating table in a spine position patient was appropriately identified by surgeon site scope and indications of the procedure were reconfirmed with the patient general anesthesia was given uneventfully. At this time patient received perioperative antibiotics patient was positioned in dorsal lithotomy. Position parts were prepped and draped in the usual sterile fashion 2% lidocaine was instilled into the urethra she had complete ureterovaginal prolapse I reduced it and also had a urethral stenosis urethral calibration and dilation with a female urethral dilators up to 30 Green[place]ic was carried out. At this time patient received perioperative antibiotics next 21 cystoscope was used to do the cystourethroscopy examination of the ureth ra was unremarkable examination of bladder in all the quadrant was carried out she has lot of catheter reaction and inflammatory polyps in the bladder neck area it was very difficult to visualize the ureteral orifice because of the prolapse with the great effort I was able to visualize the orifice. Next on the left side I passed a open-ended Pollick catheter and tried to pass the Glidewire through it into the left ureter the ureter was bent at a 90 degree I was able to manipulate the wire into the kidney retrograde pyelogram was performed. There was high-grade obstruction. As soon as I passed the wire and open-ended Pollick catheter there was a lot of puslike material draining from the kidney. Ureteroscopy was performed there was no obstruction identified other than kinking of the ureter. She has high-grade obstruction on the right side which was worse than the left side with the great difficulty I was able to pass open- ended Pollick catheter after I located to the right ureter orifice and I passed a Glidewire through the open-ended Pollick catheter under fluoroscopic examination retrograde pyelogram revealed high-grade obstruction. As soon as I passed the open-ended Pollick catheter into the renal pelvis there is was E flux of puslike material from the right kidney and there was tortuosity of the ureter in the mid ureter and also proximal ureter at ureteropelvic junction the ureteropelvic junction. I was able to pass the wire into the upper pole calyx. Over the wire I placed 26 cm long 6 Greenlandic double-J stent on both sides under fluoroscopic examination the proximal end of the stents was in the upper pole calyx distal in the bladder next bladder was emptied instrument was withdrawn gently #16 Ku catheter was inserted and I I placed pessary into the vagina pa tient after having tolerated the procedure well moved to recovery room in a satisfactory condition to be transferred to the floor. Anesthesia GETA Pathology / specimen None Estimated Blood Loss 5 Condition Stable Disposition PACU Surgeon Paulina Wright MD Surgical Staff Operation Date: 07/23/25 11:45 Case Staff Anesthesiologist: Anthony Latif
--- NOTE | 2025-07-23 14:46 | ESOP_ITS ---
Surgeon Paulina Wright MD Surgical Staff Operation Date: 07/23/25 11:45 Case Staff Anesthesiologist: Anthony Latif
--- NOTE | 2025-07-23 15:01 | SUR.PHASEI ---
pt able to tolerate oral fluids without difficulty swallowing or nausea/vomiting.
--- NOTE | 2025-07-23 15:20 | SUR.PHASEI ---
pt awake and alert, breathing unlabored on room air. v/s stable. pt has nava in place. report called to Christine KENNEY.
--- NOTE | 2025-07-23 18:35 | PC.NURSE ---
Patient came back from her procedure at 1530. VS: 119/66, 94% RA, 78 HR, 20 Resp., 3/10 pain. This nurse started patient's Zosyn and LR upon return. Blood glucose upon return [id number]. During the procedure doctor was able to fix patient's prolapse uterus with pessary. Patient returned with a nava with red tinged urine. No changes to note.
[2025-07-23] MEDS: INSULIN LISPRO (AdmeLOG) 1 UNIT/0.01 ML UNIT SC (21:30)
[2025-07-24] VITALS: BP 98/57; PULSE 60; RESP 16; TEMP 36.1; O2SAT 94
[2025-07-24] MEDS: RINGERS LACTATED 1000 ML 1,000 ML 125 ML IV ×3 (00:41→17:54)
[2025-07-24 04:00] VITALS: BP 97/65; PULSE 62; RESP 18; TEMP 36.2; O2SAT 95
[2025-07-24] MEDS: PIPERACILLIN/TAZO 2.25GM INJ 2.25 GM in SODIUM CHLORIDE 0.9% (Popper) 50 ML IV (05:45)
[2025-07-24 05:53] LABS: Basophils # (Auto) 0.0 Thou/mm3 (0.0-0.2); Basophils % (Auto) 0 % (0-2.5); Eosinophils # (Auto) 0.0 Thou/mm3 (0.0-0.5); Eosinophils % (Auto) 0 % (0-10); Hematocrit 29.3 % (36.0-46.0); Hemoglobin 9.6 g/dL (12.0-16.0); Immature Granulocytes Auto 0.07 Thou/mm3 (0.00-0.00); Lymphocytes # (Auto) 0.5 Thou/mm3 (1.0-4.8); Lymphocytes % (Auto) 7 % (10-50); Mean Corpuscular HGB Conc 32.8 g/dl (31.0-37.0); Mean Corpuscular Hemoglobin 30.9 pg (25.0-35.0); Mean Corpuscular Volume 94 fL (80-100); Monocytes # (Auto) 0.3 Thou/mm3 (0.0-0.8); Monocytes % (Auto) 4 % (0-12); Neutrophils # (Auto) 5.9 Thou/mm3 (1.8-7.7); Neutrophils % (Auto) 88 % (37-80); Nucleated Red Blood Cell # 0.00 Thou/mm3 (0.00-0.00); Nucleated Red Blood Cell % 0 /100 WBC (0); Platelet Count 104 Thou/mm3 (140-440); RDW Standard Deviation 49.3 fL (36.4-46.3); Red Blood Count 3.11 Miln/mm3 (4.00-5.20); White Blood Count 6.7 Thou/mm3 (3.6-11.0)
[2025-07-24 06:00] VITALS: BMI 41.9
[2025-07-24 06:15] LABS: Anion Gap 14 (7-16); BUN/Creatinine Ratio 24 Ratio (12-20); Blood Urea Nitrogen 80 mg/dL (9-23); Calcium 7.8 mg/dL (8.3-10.6); Carbon Dioxide 18.2 mMol/L (20.0-31.0); Chloride 107 mMol/L (98-107); Creatinine (Component) 3.4 mg/dL (0.6-1.3); Estimated Creatinine Clearance 16.4 mL/min (>60); Glucose 327 mg/dL (74-106); Magnesium 2.4 mg/dL (1.6-2.6); Osmolality,Calculated 314 (275-295); Phosphorous 5.2 mg/dL (2.4-5.1); Potassium 4.1 mMol/L (3.4-5.1); Sodium 139 mMol/L (136-145); eGFR 14 See Note
[2025-07-24] MEDS: INSULIN LISPRO (AdmeLOG) 1 UNIT/0.01 ML UNIT SC ×4 (07:35→21:01)
[2025-07-24 08:00] VITALS: BP 100/68; PULSE 77; RESP 18; TEMP 36.1; O2SAT 98
[2025-07-24] MEDS: LEVOFLOXACIN/D5W 750MG IVPB 750 MG/150 ML BAG 100 MG IV (08:59)
--- NOTE | 2025-07-24 10:42 | ESPR_ITS ---
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 The episodes occurred once daily over the past three days during which she did not have any chest pain, paplation, or loss of consciousness. She reports being on Mounjaro and notes an approximate 10 pounds weight loss since initiation. Additionally, she endorses urinary symptoms for the past week, including coining difficulties, dysuria, hematuria and a sensation of incomplete bladder emptying. At the time she of ED visit, patient complained of Nausea, mouth dryness and diarrhea. Denies chest pain, palpation, SOB, abdominal pain, N/V, fevers or chills. Pt was admitted for rhabdomyolysis/UTI evaluation and management. Nephrology has been consulted for management of JOSE, rhabomyolysis and UTI. ED course: -Initial vitals were BP 104/25, pulse 111, respiratory 18, temp 101.8, O2 75% on room air. -Labs significant for WBC 11.8, hemoglobin 11.6, hematocrit 34.3, platelet 108, sodium 134, bicarb 19.3, BUN 60, creatinine 4.3, eGFR 10, AST 125, ALT 59, lactic creatinine is 204, creatinine kinase 4472, Pro-Arthur 77.81. VBG pH 7.44, CO2 24, O2 67. UA showed turbid urine, LE positive, 1000 RBC, 14,000 WBC, 4+ bacteria. -Imaging included CT A/P showed moderate to prominent right hydronephrosis, mild to moderate left hydronephrosis but no obstructive lesions seen. Suspect to be due to vesicoureteral reflux and significant urinary tract and bladder infection. CT head negative for hemorrhage or mass affect. EKG showed sinus tachycardia. -In the ED, patient was given 1 L LR, started nava cath, made 170cc urine after nava.Post nava bladder showed 143 cc Past Medical History: Mentioned above Family History: Noncontributory Surgical History: none Social History: Denies history of smoking, denies current alcohol use, denies recreational drug use lives withs . 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 Current Medications: Losartan and omeprazole Allergies: No known drug allergies 07/22/2025: Labs reviewed and patient examined at the bedside. Patient's past Cr was 0.67 in 2023. On admission, her Cr 4.3 which shows that she have JOSE. The cause of Jose is likely to be multi-factorial. Pre-renal cause include nausea, vomiting, and diarrhea, likely caused by ozempic, and since she had significant weight loss after using it, perhaps the dosage might be too much for patient's body. Instrinsic renal cause likely due to ATN caused by rhabdomyolysis. Post- renal as evidenced by CT scan and Renal US showing bilateraly hydronephrosis, but cause is less clear because based on ED note, patient has drained very little urine when nava catheter was first introduced. The cause can be due to uterine prolapse. Vesicoureteral reflux can contribute to the picture of bilateral hydronephrosis and anuria despite nava, but VUR itself does not ususally cause an immediate postrenal obstruction. However, it does predispose patients to UTI and chronic scarring. Will continue to monitor patient. Will continue IVF and abx. 07/23/2025: Labs reviewed and patient examined at the bedside. Cr currently 3.5 . Patient also showed substantial uterine prolapse that would have contributed to patient's UTI. Pending cystoscopy and ureteral stent placement pending from urology today. Advise OBGYN consult for management of uterine prolapse. Patient's UOP was 1.4 L. Nava bag showed dark red urine. Bladder irrigation is recommended. 07/24/2025: Labs reviewed and patient examined at the bedside. BUN:80, Cr:3.4, eGFR:14. Yesterday, patient received cystoscopy, bilateral retrograde pyelogram, bilateral ureteroscopy, placement of bilateral ureteral stents, urethral dilation, nava catheter insertion, and Vaginal pessary placement for complete uterovaginal prolapse. During exapination, there was high grade obstruction in bilateral ureter, worse on the right side. There was kinking of ureter at a 90 degree from the bladder. A lot of puslike material was draining from the both kidneys. Stent was placed on both sides of ureter. Nava bag showed dark red urine, like due to the procedure done yesterday. Currently there is no need for dialysis. Will continue to monitor. Exam Vital Signs Temp Pulse Resp BP Pulse Ox O2 Del Method O2 Flow Rate 97.0 F 77 18 100/68 98 Room Air 4 07/24/25 08:00 07/24/25 08:00 07/24/25 08:00 07/24/25 08:00 07/24/25 08:00 07/24/25 08:00 07/23/25 14:50 Narrative Exam General: No acute distress, well nourished, AAO x3 Eye: PERRL, EOMI, normal conjunctiva, no scleral icterus HENT: Normocephalic, atraumatic, hearing intact to conversation at normal volume, moist oral mucosa Neck: Supple, non-tender, no JVD, no lymphadenopathy Lungs: Non-labored respirations, symmetric chest rise, Clear to auscultate bilaterally, No wheezing, rhonchi, crackles Heart: Peripheral pulses intact bilaterally, Regular Rate and Rhythm. Abdomen: Soft, non-tender, non-distended, no palpable masses Musculoskeletal: Normal range of motion and strength, No cyanosis or edema, No visible joint swelling, Ecchymosis around left eye Skin: Skin is warm, dry, no rashes or lesions. Psychiatric: Cooperative, appropriate mood and affect, Awake and alert, not agitated Neuro: Cranial nerves II-XII grossly intact. Sensations intact to light touch. Objective Labs 07/24/25 04:55 07/24/25 04:55 Labs: Laboratory Results - last 24 hr 07/24/25 04:55 WBC 6.7 RBC 3.11 L Hgb 9.6 L Hct 29.3 L MCV 94 MCH 30.9 MCHC 32.8 RDW Std Deviation 49.3 H Plt Count 104 L Neut % (Auto) 88 H Lymph % (Auto) 7 L [place] % (Auto) 4 Eos % (Auto) 0 Baso % (Auto) 0 Neut # (Auto) 5.9 Lymph # (Auto) 0.5 L [place] # (Auto) 0.3 Eos # (Auto) 0.0 Baso # (Auto) 0.0 Immature Gran # (Auto) 0.07 H Absolute Nucleated RBC 0.00 Immature Gran % 1 H Nucleated RBC % 0 Sodium 139 Potassium 4.1 Chloride 107 Carbon Dioxide 18.2 L Anion Gap 14 BUN 80 H Creatinine 3.4 H Estim Creat Clear Calc 16.4 L eGFR 14 L* BUN/Creatinine Ratio 24 H Glucose 327 H D Calculated Osmolality 314 H Calcium 7.8 L Phosphorus 5.2 H Magnesium 2.4 ABG Interpretation ABG results: 07/21/25 20:46 VBG pH 7.44 VBG pCO2 24 L VBG pO2 67 H VBG Base Excess -7 L Quality Measures Quality Measures none Advance care planning discussed with:: patient Assessment & Plan Assessment Current Active Medications: Generic Name Dose Route Start Last Admin Trade Name Freq PRN Reason Stop Dose Admin Acetaminophen 650 mg 07/21/25 21:13 Acetaminophen 325 Mg Tablet PO 08/20/25 21:12 Q4HR PRN Pain Scale 1-3 (Mild) Dextrose 25 ml 07/22/25 17:56 Dextrose 50%-Water Inj 50 Ml Syringe IV 08/21/25 17:55 Q15MIN PRN BG 50-70 responsive npo pt Dextrose 50 ml 07/22/25 17:56 Dextrose 50%-Water Inj 50 Ml Syringe IV 08/21/25 17:55 Q15MIN PRN BG <50 OR BG <70 & pt unresponsive Glucagon 1 mg 07/22/25 17:56 Glucagon Inj 1 Mg Vial IM Q15MIN PRN BG <70, and no IV access Hydromorphone HCl 1 mg 07/21/25 21:15 07/23/25 05:53 Hydromorphone Inj 2 Mg/Ml Vial IVP 07/26/25 21:14 1 mg Q4HR PRN Administration PAIN SCALE 7-10 Hydromorphone HCl 0.5 mg 07/21/25 21:15 Hydromorphone Inj 2 Mg/Ml Vial IVP 07/26/25 21:14 Q4HR PRN PAIN SCALE 4-6 Lactated Ringer's 1,000 mls @ 125 mls/hr 07/22/25 08:15 07/24/25 08:58 Lactated Ringers IV 08/21/25 08:14 125 mls/hr .Q8H DARIEL Administration Levofloxacin/Dextrose 500 mg in 100 mls @ 66.667 mls/hr 07/25/25 09:00 Levaquin Ivpb IV 08/01/25 08:59 Q48H DARIEL Protocol Insulin Human Lispro 0 unit 07/23/25 17:00 07/24/25 07:35 Insulin Lispro (Admelog) 1 Unit/0.01 Ml Unit SC 08/22/25 16:59 3 unit ACHS DARIEL Administration Protocol Ondansetron HCl 4 mg 07/22/25 18:21 07/22/25 18:33 Ondansetron Inj 2 Mg/Ml Inj 2 Ml IVP 08/21/25 18:20 4 mg Q6HR PRN Administration NAUSEA OR VOMITING Protocol Plan 74y/o F with PMH of HTN, 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 Pt was admitted for rhabdomyolysis/UTI evaluation and management. Nephrology has been consulted for management of JOSE, rhabomyolysis and UTI. #JOSE #2/2 Nausea/Vomiting/Diarrhea VS Rhabdomyolysis VS Urinary retention #Complete uterovaginal prolapse #Pyelonephritis -Patient's past Cr was 0.67 in 2023. On admission, her Cr 4.3 which shows that she have JOSE. -Upon admission, BUN:68, Cr:4.3, eGFR:10. No past labs to know baseline. -No edema, lungs clear, mucus membranes dry. -CTAP (07/21/2025): Moderate to prominent right hydronephrosis, mild to moderate left hydronephrosis, no renal or ureteral calculi, mild urinary bladder wall thickening, highest on the differential list would be vesicoureteral reflux and significant urinary tract and bladder infection -Renal US (07/22/2025): Right kidney 11.8 cm cortex 1.7 cm, Advanced right hydronephrosis, Left kidney 14.2 cm cortex 1.7 cm, Moderate Left hydronephrosis, Contracted urinary bladder. -The cause of Jose is likely to be multi-factorial. Pre-renal cause include nausea, vomiting, and diarrhea, likely caused by Mounjaro, and since she had significant weight loss after using it, perhaps the dosage might be too much for patient's body VS Instrinsic renal cause likely due to ATN caused by rhabdomyolysis VS Post-renal as evidenced by CT scan and Renal US showing bilateral hydronephrosis, but cause is less clear because based on ED note, patient has drained very little urine when nava catheter was first introduced. The cause can be due to uterine prolapse. Vesicoureteral reflux can contribute to the picture of bilateral hydronephrosis and anuria despite nava, but VUR itself does not ususally cause an immediate postrenal obstruction. However, it does predispose patients to UTI and chronic scarring. - (07/23/2025) Cystoscopy, bilateral retrograde pyelogram, bilateral ureteroscopy, placement of bilateral ureteral stents, urethral dilation, nava catheter insertion, and Vaginal pessary placement for complete ureterovaginal prolapse. During exapination, there was high grade obstruction in bilateral ureter, worse on the right side. There was kinking of ureter at a 90 degree from the bladder. A lot of puslike material was draining from the both kidneys. Stent was placed on both sides of ureter. Nava bag showed dark red urine, like due to the procedure done yesterday. Currently there is no need for dialysis. Will continue to monitor. -Although JOSE is caused by multifactorial etiologies, Post renal urinary retention caused by Complete uterovaginal prolapse has played biggest role in patient's sepsis and JOSE. Plan: -Currently on levofloxacin 500 mg IV. -1 L IV LR 125ml/hr maintenance fluid -Avoid nephrotoxins -Renally dose medication -On Nava Catheter -Recommend OBGYN consult for Uterine prolapse evaluation and possible hysterectomy. #Sepsis - Resolved #UTI #Pyelonephritis -On admission, Clinical picture meets 3/4 SIRS criteria: T 101.8 (>100.4 or <96.8F), RR 22 (>20/min), HR 111 (>90/min), WBC 11.8 (>12 or <4K or Bands >10%). -Lactic acid: 1.8 -UTI as a source of infection -On admission, UA showed: Urine blood 3+, Urine RBC 1000, Urine WBC 1438, urine Protein: 2+. Urine bacteria: 4+ Plan: -On Nava Catheter -Currently on levofloxacin 500 mg IV. #Rhabdomyolysis - Resolving #2/2 Ground level falls #Acute Tubular Necrosis -Episodes of acute muscular weakness. But denies muscular pain or swelling, or brown/tea-colored urine. -Episodes of multiple falls due to weakness. Traumatic rhabdomyolysis likely due to falls. -No recent surgery, burn, electricity contact, physical restraint -No recent prolonged seizures or psychotic agitation, No medical history of myopathies, alcoholism, drugs (ex. Statins, illicit substances), recent infections, or alcoholism -No recent strenuous exercise, prolonged exposure to severe heat or humidity, and impaired heat loss from reduced sweating due to dehydration. -On admission, AST 125, ALT 59, LDH 284, CK initially 4472, 6 hrs later 3405, BUN:68, Cr:4.3, eGFR:10 -On admission, UA showed: Urine blood 3+, Urine RBC 1000, Urine WBC 1438, urine Protein: 2+. Urine bacteria: 4+ -Elevated CK suggests rhabdomyolysis, elevated AST >ALT suggests muscle injury as main source instead of liver. High LDH non-specific but rises with tissue breakdown. Plan: -Continue to monitor serum CK and electrolyte levels. -If pt volume overloaded, consider diuresis #Cholelithiasis #Pre-diabetic -Management per Primary Hospitalist team Thank you for allowing us to participate in the care of your patient. Assessment and plan discussed with my attending physician Dr. Fernanda Hollis ([id number])- Internal medicine resident Attending Provider Attestation/Addendum patient currently seen and examined with resident physician Dr. Hollis. Note reviewed, agree with findings and recommendations. Patient currently seen in medical floor. Family at bedside. JOSE secondary to prerenal azotemia with superimposed bilateral hydronephrosis. Patient also noted to have grade 4 uterine prolapse. Will benefit from urology and gynecology services. Creatinine tad better with IV fluids. Will monitor closely. Plan of care discussed with primary team. Spoke to Dr Wright-s/p ureteral stents for bilateral hydronephrosis. s/p pessary. 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 Patient will need hysterectomy-not sure during this admission or not. Blood pressure on the higher side-adjust medications. Hemoglobin 9.6, platelets 104. Bicarbonate 18.2, creatinine 3.4.
[2025-07-24 12:00] VITALS: BP 109/68; PULSE 67; RESP 18; TEMP 36.1; O2SAT 98
--- NOTE | 2025-07-24 14:32 | PD.RESPRO ---
Documentation for date of: 07/24/25 Subjective Subjective Interval history: 74 yo female with history of hypertension admitted for sepsis with UTI and b/l hydronephrosis secondary to uterine prolapse. No acute events overnight. Patient notes to be feeling better with decreased abdominal pain. She denies fever, chills, nausea and vomiting. She reports having taking care of her mother for the past 5 months and started lifting heavy weights around this time. Yesterday patient had the following procedures: cystoscopy, b/l retrograde pyelogram, bilateral ureteroscopy, placement of bilateral ureteral stents, nava catheter insertion, and vaginal pessary. Her vitals have been stable. Labs notable for Hg 9.6, Hct 29.3, Plt 104, BUN 80, Cr 3.4, Glucose 327. Exam Vital Signs Temp Pulse Resp BP Pulse Ox O2 Del Method O2 Flow Rate 97.0 F 67 18 109/68 98 Room Air 4 07/24/25 12:00 07/24/25 12:00 07/24/25 12:07/24/25 12:07/24/25 12:00 07/24/25 12:07/23/25 14:50 Narrative Exam General: Patient alert, oriented, in no acute distress. HEENT: Normocephalic, atraumatic. PERRLA, EOMI, no scleral icterus or conjunctival injection. Oropharynx clear, mucous membranes moist. Neck: Supple, trachea midline, no thyromegaly or lymphadenopathy. Cardiac: Tachycardic and regular rhythm, normal S1/S2, no murmurs, rubs, or gallops. No peripheral edema. Lungs: Normal effort, clear to auscultation bilaterally, no wheezes, rales, or rhonchi. Abdomen: Soft, tender, non-distended. No rebound/guarding. Extremities: Warm, well-perfused, no clubbing, cyanosis, or edema. Skin: Warm, dry, intact. No rashes, lesions, or ecchymoses. Neuro: Alert and oriented ?3. Speech fluent. Cranial nerves II?XII grossly intact. Psych: Appropriate mood and affect. Cooperative, good eye contact. Objective Labs 07/25/25 11:20 07/25/25 05:09 Labs: Laboratory Results - last 24 hr 07/24/25 04:55 WBC 6.7 RBC 3.11 L Hgb 9.6 L Hct 29.3 L MCV 94 MCH 30.9 MCHC 32.8 RDW Std Deviation 49.3 H Plt Count 104 L Neut % (Auto) 88 H Lymph % (Auto) 7 L [place] % (Auto) 4 Eos % (Auto) 0 Baso % (Auto) 0 Neut # (Auto) 5.9 Lymph # (Auto) 0.5 L [place] # (Auto) 0.3 Eos # (Auto) 0.0 Baso # (Auto) 0.0 Immature Gran # (Auto) 0.07 H Absolute Nucleated RBC 0.00 Immature Gran % 1 H Nucleated RBC % 0 Sodium 139 Potassium 4.1 Chloride 107 Carbon Dioxide 18.2 L Anion Gap 14 BUN 80 H Creatinine 3.4 H Estim Creat Clear Calc 16.4 L eGFR 14 L* BUN/Creatinine Ratio 24 H Glucose 327 H D Calculated Osmolality 314 H Calcium 7.8 L Phosphorus 5.2 H Magnesium 2.4 ABG Interpretation ABG results: 07/21/25 20:46 VBG pH 7.44 VBG pCO2 24 L VBG pO2 67 H VBG Base Excess -7 L Quality Measures Quality Measures none Advance care planning discussed with:: patient Assessment & Plan Assessment Current Active Medications: Generic Name Dose Route Start Last Admin Trade Name Freq PRN Reason Stop Dose Admin Acetaminophen 650 mg 07/21/25 21:13 Acetaminophen 325 Mg Tablet PO 08/20/25 21:12 Q4HR PRN Pain Scale 1-3 (Mild) Dextrose 25 ml 07/22/25 17:56 Dextrose 50%-Water Inj 50 Ml Syringe IV 08/21/25 17:55 Q15MIN PRN BG 50-70 responsive npo pt Dextrose 50 ml 07/22/25 17:56 Dextrose 50%-Water Inj 50 Ml Syringe IV 08/21/25 17:55 Q15MIN PRN BG <50 OR BG <70 & pt unresponsive Glucagon 1 mg 07/22/25 17:56 Glucagon Inj 1 Mg Vial IM Q15MIN PRN BG <70, and no IV access Hydromorphone HCl 1 mg 07/21/25 21:15 07/23/25 05:53 Hydromorphone Inj 2 Mg/Ml Vial IVP 07/26/25 21:14 1 mg Q4HR PRN Administration PAIN SCALE 7-10 Hydromorphone HCl 0.5 mg 07/21/25 21:15 Hydromorphone Inj 2 Mg/Ml Vial IVP 07/26/25 21:14 Q4HR PRN PAIN SCALE 4-6 Lactated Ringer's 1,000 mls @ 125 mls/hr 07/22/25 08:15 07/24/25 08:58 Lactated Ringers IV 08/21/25 08:14 125 mls/hr .Q8H DARIEL Administration Levofloxacin/Dextrose 500 mg in 100 mls @ 66.667 mls/hr 07/25/25 09:00 Levaquin Ivpb IV 08/01/25 08:59 Q48H DARIEL Protocol Insulin Human Lispro 0 unit 07/23/25 17:00 07/24/25 11:32 Insulin Lispro (Admelog) 1 Unit/0.01 Ml Unit SC 08/22/25 16:59 3 unit ACHS DARIEL Administration Protocol Ondansetron HCl 4 mg 07/22/25 18:21 07/22/25 18:33 Ondansetron Inj 2 Mg/Ml Inj 2 Ml IVP 08/21/25 18:20 4 mg Q6HR PRN Administration NAUSEA OR VOMITING Protocol Plan The patient is a 74-year-old female with a history of hypertension who is admitted for rhabdomyolysis and UTI evaluation and management. #Sepsis in setting of UTI #Bilateral hydronephrosis 2/2 to Uterine Prolapse Patient underwent cystoscopy, b/l retrograde pyelogram, bilateral ureteroscopy, placement of bilateral ureteral stents, nava catheter insertion, and vaginal pessary. There was drainage of puslike fluid from kidneys requiring antibiotic treatment with broad spectrum coverage. Her presence of hematuria is likely due to the urology procedures. Blood culture showed no growth after 24 hours. Urine culture positive for Proteus Mirabilis. Given presence of uterine prolapse leading to bilateral hydronephrosis, would consider ObGyn consult for further treatment options. Plan - Start on IV Levofloxacin 500mg for broad spectrum coverage - Pain controlled with Acetaminophen and Dilaudid as needed - Consulted Dr. Wolf for ObGyn recs #S/p ground level fall #JOSE 2/2 to Rhabdomylosis Patient experienced multiple falls due to weakness leading to muscle breakdown and rhabdomylosis. She denies muscular pain, swelling and hematuria. On admission, CK was 4472 now down trending to 3137. AST 125, ALT 59, LDH 284 UA showed: Urine blood 3+, Urine RBC 1000, Urine WBC 1438, Urine Protein: 2+. Urine bacteria: 4+. Plan - On Nava Catheter - Referral to PT for multiple falls #Cholelithiasis Found on CT abdominal pelvis. Abdominal pain, nausea, vomiting and postprandial pain. Plan - Continue to monitor #Pre-diabetic Patient's HgbA1c was 6.[address] patient on sliding scale and monitor blood sugars. Plan - Started on insulin sliding scale - Monitor blood sugars Hospital Maintenance: Dispo: medsurg DVT ppx: Lovenox GI ppx: none Diet: NPO after midnight IV Lines: Peripheral IV Code Status: Full Code Patient seen and assessed under supervision of attending physician Dr. Bass. Jimmy HADLEY, Internal Medicine Attending Provider Attestation/Addendum I have discussed and was present for the essential components of the history, physical examination, diagnosis, and treatment plan with the resident. I agree with the patient's care as documented by the resident and amended herein by me. Hugo Bass DO. Although this document has been carefully reviewed, there may still be some phonetic and other typographical errors. These errors are purely grammatical due to imperfections in the software program and should not be construed in any way to compromise the substance of the patient's medical care during this visit. Patient seen and evaluated this AM. No acute events overnight, hemoglobin stable, urine still very dark, will likely discharge when urine clears up, will continue levofloxacin for UTI, appreciate urology recommendations.
[2025-07-24 16:00] VITALS: BP 109/61; PULSE 68; RESP 19; TEMP 36.1; O2SAT 97
--- NOTE | 2025-07-24 16:02 | PD.GYNCONS ---
TECHNICAL OPERATIONS MANAGER HPI Data of Consult Requesting Physician: Kalyan Bass DO Primary Care Provider: Physician No Primary/Family Consult Narrative History of present illness: Weakness, multiple falls, legs buckling, bruising on face, fatigue, sleepiness, decreased appetite Merary Cortes is a 74-year-old female with a history of hypertension, admitted to the Internal Medicine Service on July 19, 2025, presenting with weakness and multiple falls. The patient reported that her legs buckled out and she experienced bruising on her face. The falls occurred 3 days prior to admission, with sudden onset of generalized weakness. Ms. Cortes denied loss of consciousness or urinary incontinence during the falls. In addition to weakness, the patient reported fatigue, sleepiness, and decreased appetite. She noted starting a medication called [employer] 3 weeks ago, having received 2 doses so far. Initially, her symptoms were attributed to this medication. The patient also experienced symptoms consistent with a urinary tract infection and obstruction, which led to sepsis and bilateral hydronephrosis. On July 23, 2025, Ms. Cortes underwent a cystoscopic examination with bilateral retrograde pyelogram and ureteral stent placement performed by urologist. The procedure revealed high-grade renal obstruction and kinking of the ureters at a 90-degree angle from the bladder into the prolapsed bladder. Purulent material was drained from both kidneys during the procedure. The patient was diagnosed with complete uterine prolapse, which is currently being managed with a cube pessary. This condition has contributed to the kinking of her ureters and subsequent urinary tract complications. Medical History: - Hypertension - Complete uterine prolapse Surgical History: - Cystoscopic examination, bilateral retrograde pyelogram, bilateral ureteral stent placement, urethral dilatation, and Ku catheter insertion on 07/23/2025 - Vaginal pessary placement Diagnostic Test Results and Labs: - CBC (07-19-2025): Hemoglobin 11.6 g/dL, hematocrit 34.3%, white blood count 11.8, platelets 108 - Chemistry (07-19-2025): Sodium 134, Bicarbonate 19.3, BUN 160, Creatinine 4.3 - Liver Function Tests (07-19-2025): AST 125, ALT 59 - Creatinine Kinase (07-19-2025): 4472 - Calcitonin (07-19-2025): 77.8 - Urinalysis (07-19-2025): Leukocyte esterase positive, RBCs and WBCs present - CT Abdomen and Pelvis (07-19-2025): Moderate to prominent right hydronephrosis, mild to moderate left hydronephrosis, no obstructive lesions - Cystoscopic examination (07-23-2025): High-grade renal obstruction, kinking of the ureter at a 90-degree angle from the bladder into the prolapsed bladder - Bilateral retrograde pyelogram (07-23-2025): Purulent material drained from both kidneys cc:: cc: Kalyan Bass, DO Meds Home Medications and Allergies Home Medications ?Medication ?Instructions ?Recorded ?Confirmed ?Type losartan 50 mg tablet 50 mg PO QDAY 07/21/25 07/21/25 History omeprazole 20 mg capsule,delayed 20 mg PO QDAY 07/21/25 07/21/25 History release Allergies Allergy/AdvReac Type Severity Reaction Status Date / Time No Known Allergies Allergy Unverified 07/21/25 14:40 Exam - TECHNICAL OPERATIONS MANAGER Vital Signs Temp Pulse Resp BP Pulse Ox O2 Del Method O2 Flow Rate 97.0 F 67 18 109/68 98 Room Air 4 07/24/25 12:00 07/24/25 12:00 07/24/25 12:00 07/24/25 12:00 07/24/25 12:00 07/24/25 12:00 07/23/25 14:50 Constitutional Constitutional: no acute distress Routine HEENT Exam Head: Present normocephalic and atraumatic Eye: Present EOMI and PERRL ENT: Present mucous membranes moist Routine Abdominal Exam Abdominal: Present soft and normoactive bowel sounds Routine Extremities Exam Extremities: Present full ROM Routine Skin Exam Skin: Present intact and dry Routine Neurological Exam Neurological: Present alert, oriented X3 and CN II-XII intact TECHNICAL OPERATIONS MANAGER - Results Labs 07/25/25 05:09 07/25/25 05:09 Labs: Short CBC 07/24/25 Range/Units 04:55 WBC 6.7 (3.6-11.0) Thou/mm3 Hgb 9.6 L (12.0-16.0) g/dL Hct 29.3 L (36.0-46.0) % Plt Count 104 L (140-440) Thou/mm3 BMP 07/24/25 04:55 Sodium 139 Potassium 4.1 Chloride 107 Carbon Dioxide 18.2 L BUN 80 H Creatinine 3.4 H Glucose 327 H D Calcium 7.8 L ABG Interpretation ABG results: 07/21/25 20:46 VBG pH 7.44 VBG pCO2 24 L VBG pO2 67 H VBG Base Excess -7 L Assessment and Plan Assessment and plan (1) Urinary tract infection: Status: Acute (2) Sepsis: Status: Acute (3) Rhabdomyolysis: Status: Acute (4) Uterine procidentia: Status: Acute Assessment and plan: Complete uterine prolapse with bilateral ureteral obstruction Assessment: Patient has complete uterine prolapse with a pessary currently in place. This condition has led to high-grade renal obstruction and kinking of the ureters at a 90-degree angle from the bladder into the prolapsed bladder. The prolapse resulted in bilateral hydronephrosis and urinary tract infection with sepsis. The patient underwent cystoscopic examination, bilateral retrograde pyelogram, and bilateral ureteral stent placement on 07/23/2025, which revealed purulent material draining from both kidneys. Plan: - Continue current management with pessary to prevent recurrence of prolapse and kinking of ureters - Patient counseled about routine pessary cleaning and care - Continue IV antibiotics with ureteral stents in situ - Defer major gynecologic surgical intervention pending improvement of sepsis and general medical status - Recommend future definitive treatment: combined suspension procedure with vaginal hysterectomy for vault suspension - Transfer or discharge for outpatient follow-up at a tertiary care center with urogynecologic support - Consider minimally invasive hysterectomy combined with sacrospinous or sacral colpopexy suspension procedure at tertiary care center Urinary tract infection with sepsis Assessment: Patient developed sepsis secondary to urinary tract infection and obstruction from bilateral hydronephrosis. Initial presentation included weakness, multiple falls, fever (101.8?F), and elevated inflammatory markers (WBC 11.8, CRP 77.8). CT abdomen and pelvis showed moderate to prominent right hydronephrosis and mild to moderate left hydronephrosis. Plan: - Continue IV antibiotics - Maintain Ku catheter as per urologist's recommendation - Monitor renal function and inflammatory markers Acute kidney injury with rhabdomyolysis Assessment: Patient developed acute kidney injury (creatinine 4.3) with evidence of rhabdomyolysis (CK 4472) following falls. CT imaging showed bilateral hydronephrosis, likely contributing to the kidney injury. Acute tubular necrosis is suspected. Plan: - Continue IV fluid management - Monitor renal function and urine output - Follow up on ureteral stent function and renal drainage as per primary team/ urologist recommendations
[2025-07-24 20:00] VITALS: BP 165/103; PULSE 65; PULSE 92; RESP 19; TEMP 36.8; O2SAT 96
[2025-07-25] VITALS (7 sets, daily range): BP systolic 111–142; BP diastolic 59–80; PULSE 61–84; RESP 18–20; TEMP 36.1–36.7; O2SAT 93–99; BMI 41.9
[2025-07-25] MEDS: RINGERS LACTATED 1000 ML 1,000 ML 125 ML IV (01:46)
[2025-07-25 06:08] LABS: Basophils # (Auto) 0.0 Thou/mm3 (0.0-0.2); Basophils % (Auto) 0 % (0-2.5); Eosinophils # (Auto) 0.0 Thou/mm3 (0.0-0.5); Eosinophils % (Auto) 0 % (0-10); Hematocrit 32.0 % (36.0-46.0); Hemoglobin 10.7 g/dL (12.0-16.0); Immature Granulocytes Auto 0.17 Thou/mm3 (0.00-0.00); Lymphocytes # (Auto) 0.9 Thou/mm3 (1.0-4.8); Lymphocytes % (Auto) 6 % (10-50); Mean Corpuscular HGB Conc 33.4 g/dl (31.0-37.0); Mean Corpuscular Hemoglobin 30.9 pg (25.0-35.0); Mean Corpuscular Volume 93 fL (80-100); Monocytes # (Auto) 1.0 Thou/mm3 (0.0-0.8); Monocytes % (Auto) 7 % (0-12); Neutrophils # (Auto) 12.1 Thou/mm3 (1.8-7.7); Neutrophils % (Auto) 86 % (37-80); Nucleated Red Blood Cell # 0.00 Thou/mm3 (0.00-0.00); Nucleated Red Blood Cell % 0 /100 WBC (0); Platelet Count 164 Thou/mm3 (140-440); RDW Standard Deviation 48.7 fL (36.4-46.3); Red Blood Count 3.46 Miln/mm3 (4.00-5.20); White Blood Count 14.1 Thou/mm3 (3.6-11.0)
[2025-07-25 06:33] LABS: Albumin, Serum 3.3 gm/dL (3.4-4.8); Anion Gap 14 (7-16); BUN/Creatinine Ratio 30 Ratio (12-20); Blood Urea Nitrogen 71 mg/dL (9-23); Calcium 8.8 mg/dL (8.3-10.6); Calcium (Corrected) 9.4 mg/dL (8.5-10.1); Carbon Dioxide 21.3 mMol/L (20.0-31.0); Chloride 111 mMol/L (98-107); Creatinine (Component) 2.4 mg/dL (0.6-1.3); Estimated Creatinine Clearance 23.4 mL/min (>60); Glucose 178 mg/dL (74-106); Osmolality,Calculated 315 (275-295); Phosphorous 3.2 mg/dL (2.4-5.1); Potassium 3.5 mMol/L (3.4-5.1); Sodium 146 mMol/L (136-145); eGFR 21 See Note
[2025-07-25] MEDS: INSULIN LISPRO (AdmeLOG) 1 UNIT/0.01 ML UNIT SC ×2 (07:22→11:35)
--- NOTE | 2025-07-25 07:57 | PD.RESDS ---
Planned Discharge Date 07/25/25 DS: Providers Provider Date of admission: 07/21/25 20:54 Primary care physician: Physician No Primary/Family Admitting Provider: Juan Rincon MD Attending Provider on Admission: Kalyan Bass DO Consults: 07/21/25 19:52 Consult to Urology Stat Comment: Volodymyr Hydronephrosis Consulting Provider: Paulina Wright 07/21/25 20:48 Consult to Nephrology Routine Comment: JOSE, ATN, UTI, urinary retention, CK Consulting Provider: Tori Michael 07/24/25 08:27 Consult to Gynecology Routine Comment: For uterine prolapse Consulting Provider: Boris Wolf 07/24/25 15:44 Referral Physical Therapy Routine Comment: Physician Instructions: Attending Provider on DC: Homero Matthews Discharging Provider: Homero Matthews Hospital Course Hospital Course Hospital course: Weakness, multiple falls, legs buckling, bruising on face, fatigue, sleepiness, decreased appetite Merary Cortes is a 74-year-old female with a history of hypertension, admitted to the Internal Medicine Service on July 19, 2025, presenting with weakness and multiple falls. The patient reported that her legs buckled out and she experienced bruising on her face. The falls occurred 3 days prior to admission, with sudden onset of generalized weakness. Ms. Cortes denied loss of consciousness or urinary incontinence during the falls. In addition to weakness, the patient reported fatigue, sleepiness, and decreased appetite. She noted starting a medication called [employer] 3 weeks ago, having received 2 doses so far. Initially, her symptoms were attributed to this medication. The patient also experienced symptoms consistent with a urinary tract infection and obstruction, which led to sepsis and bilateral hydronephrosis. On July 23, 2025, Ms. Cortes underwent a cystoscopic examination with bilateral retrograde pyelogram and ureteral stent placement performed by urologist. The procedure revealed high-grade renal obstruction and kinking of the ureters at a 90-degree angle from the bladder into the prolapsed bladder. Purulent material was drained from both kidneys during the procedure. The patient was diagnosed with complete uterine prolapse, which is currently being managed with a cube pessary. This condition has contributed to the kinking of her ureters and subsequent urinary tract complications. Medical History: - Hypertension - Complete uterine prolapse Surgical History: - Cystoscopic examination, bilateral retrograde pyelogram, bilateral ureteral stent placement, urethral dilatation, and Ku catheter insertion on 07/23/2025 - Vaginal pessary placement Diagnostic Test Results and Labs: - CBC (07-19-2025): Hemoglobin 11.6 g/dL, hematocrit 34.3%, white blood count 11.8, platelets 108 - Chemistry (07-19-2025): Sodium 134, Bicarbonate 19.3, BUN 160, Creatinine 4.3 - Liver Function Tests (07-19-2025): AST 125, ALT 59 - Creatinine Kinase (07-19-2025): 4472 - Calcitonin (07-19-2025): 77.8 - Urinalysis (07-19-2025): Leukocyte esterase positive, RBCs and WBCs present - CT Abdomen and Pelvis (07-19-2025): Moderate to prominent right hydronephrosis, mild to moderate left hydronephrosis, no obstructive lesions - Cystoscopic examination (07-23-2025): High-grade renal obstruction, kinking of the ureter at a 90-degree angle from the bladder into the prolapsed bladder - Bilateral retrograde pyelogram (07-23-2025): Purulent material drained from both kidneys Time Spent with Patient Time attestation: Total time spent providing and/or coordinating discharge services: Exam Vital Signs Temp Pulse Resp BP Pulse Ox O2 Del Method O2 Flow Rate 97.8 F 72 20 111/70 99 Room Air 4 07/25/25 04:00 07/25/25 04:00 07/25/25 04:00 07/25/25 04:00 07/25/25 04:00 07/25/25 04:00 07/25/25 04:00 Discharge Plan Prescriptions/Referrals Prescriptions/Med Rec: No Action omeprazole 20 mg capsule,delayed release(DR/EC) 20 mg PO QDAY Patient Comments: TAKE 1 CAPSULE BY MOUTH EVERY DAY 30 MINUTES TO 1 HOUR BEFORE A MEAL losartan 50 mg tablet 50 mg PO QDAY Patient Comments: TAKE 1 TABLET BY MOUTH EVERY DAY Referrals: No Primary/Family,Physician [Primary Care Provider] Patient/Caregiver Discharge Instructions Print Language: Hungarian
--- NOTE | 2025-07-25 07:59 | PD.RESDS ---
Planned Discharge Date 07/25/25 DS: Providers Provider Date of admission: 07/21/25 20:54 Primary care physician: Physician No Primary/Family Admitting Provider: Juan Rincon MD Attending Provider on Admission: Kalyan Bass DO Consults: 07/21/25 19:52 Consult to Urology Stat Comment: Volodymyr Hydronephrosis Consulting Provider: Paulina Wright 07/21/25 20:48 Consult to Nephrology Routine Comment: JOSE, ATN, UTI, urinary retention, CK Consulting Provider: Tori Michael 07/24/25 08:27 Consult to Gynecology Routine Comment: For uterine prolapse Consulting Provider: Boris Wolf 07/24/25 15:44 Referral Physical Therapy Routine Comment: Physician Instructions: Attending Provider on DC: Homero Matthews Discharging Provider: Homero Matthews Hospital Course Hospital Course Hospital course: Patient is a 69 yo female Status at Discharge Overall status at discharge: patient is back to baseline Time Spent with Patient Time attestation: Total time spent providing and/or coordinating discharge services: Time spent: Greater than 30 minutes Exam Vital Signs Temp Pulse Resp BP Pulse Ox O2 Del Method O2 Flow Rate 97.8 F 72 20 111/70 99 Room Air 4 07/25/25 04:00 07/25/25 04:00 07/25/25 04:00 07/25/25 04:00 07/25/25 04:00 07/25/25 04:00 07/25/25 04:00 Narrative Exam General: Patient alert, oriented, in no acute distress. HEENT: Normocephalic, atraumatic. PERRLA, EOMI, no scleral icterus or conjunctival injection. Oropharynx clear, mucous membranes moist. Neck: Supple, trachea midline, no thyromegaly or lymphadenopathy. Cardiac: Regular rate and rhythm, normal S1/S2, no murmurs, rubs, or gallops. Peripheral pulses 2+ and symmetric. No peripheral edema. Lungs: Normal effort, clear to auscultation bilaterally, no wheezes, rales, or rhonchi. Abdomen: Soft, non-tender, non-distended. Normoactive bowel sounds. No hepatosplenomegaly, no rebound/guarding. Extremities: Warm, well-perfused, no clubbing, cyanosis, or edema. No joint tenderness. Skin: Warm, dry, intact. No rashes, lesions, or ecchymoses. Neuro: Alert and oriented ?3. Speech fluent. Cranial nerves II?XII grossly intact. Psych: Appropriate mood and affect. Cooperative, good eye contact. Discharge Plan Plan Patient Disposition: HOME (Self Care) Patient condition on transfer: Stable Prescriptions/Referrals Prescriptions/Med Rec: No Action omeprazole 20 mg capsule,delayed release(DR/EC) 20 mg PO QDAY Patient Comments: TAKE 1 CAPSULE BY MOUTH EVERY DAY 30 MINUTES TO 1 HOUR BEFORE A MEAL losartan 50 mg tablet 50 mg PO QDAY Patient Comments: TAKE 1 TABLET BY MOUTH EVERY DAY Referrals: No Primary/Family,Physician [Primary Care Provider] Patient/Caregiver Discharge Instructions Print Language: Hong Konger Stand Alone Forms: Rosemary Award Info., Patient Portal Info Letter
--- NOTE | 2025-07-25 08:41 | ESPR_ITS ---
Documentation for date of: 07/25/25 Subjective Subjective Interval history: 74y/o F with PMH of HTN, uterine prolapse established with [employer] outpatient and GERD presented to the hospital on 07/21/2025 with a history of 3 episodes of ground level falls associated with generalized weaknesss at the time of each fall. The episodes occurred once daily over the past three days during which she did not have any chest pain, paplation, or loss of consciousness. She reports being on Mounjaro and notes an approximate 10 pounds weight loss since initiation. Additionally, she endorses urinary symptoms for the past week, including coining difficulties, dysuria, hematuria and a sensation of incomplete bladder emptying. At the time she of ED visit, patient complained of Nausea, mouth dryness and diarrhea. Denies chest pain, palpation, SOB, abdominal pain, N/V, fevers or chills. Pt was admitted for rhabdomyolysis/UTI evaluation and management. Nephrology has been consulted for management of JOSE, rhabomyolysis and UTI. ED course: -Initial vitals were BP 104/25, pulse 111, respiratory 18, temp 101.8, O2 75% on room air. -Labs significant for WBC 11.8, hemoglobin 11.6, hematocrit 34.3, platelet 108, sodium 134, bicarb 19.3, BUN 60, creatinine 4.3, eGFR 10, AST 125, ALT 59, lactic creatinine is 204, creatinine kinase 4472, Pro-Arthur 77.81. VBG pH 7.44, CO2 24, O2 67. UA showed turbid urine, LE positive, 1000 RBC, 14,000 WBC, 4+ bacteria. -Imaging included CT A/P showed moderate to prominent right hydronephrosis, mild to moderate left hydronephrosis but no obstructive lesions seen. Suspect to be due to vesicoureteral reflux and significant urinary tract and bladder infection. CT head negative for hemorrhage or mass affect. EKG showed sinus tachycardia. -In the ED, patient was given 1 L LR, started nava cath, made 170cc urine after nava.Post nava bladder showed 143 cc Past Medical History: Mentioned above Family History: Noncontributory Surgical History: none Social History: Denies history of smoking, denies current alcohol use, denies recreational drug use lives withs . 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 Current Medications: Losartan and omeprazole Allergies: No known drug allergies 07/22/2025: Labs reviewed and patient examined at the bedside. Patient's past Cr was 0.67 in 2023. On admission, her Cr 4.3 which shows that she have JOSE. The cause of Jose is likely to be multi-factorial. Pre-renal cause include nausea, vomiting, and diarrhea, likely caused by ozempic, and since she had significant weight loss after using it, perhaps the dosage might be too much for patient's body. Instrinsic renal cause likely due to ATN caused by rhabdomyolysis. Post- renal as evidenced by CT scan and Renal US showing bilateraly hydronephrosis, but cause is less clear because based on ED note, patient has drained very little urine when nava catheter was first introduced. The cause can be due to uterine prolapse. Vesicoureteral reflux can contribute to the picture of bilateral hydronephrosis and anuria despite nava, but VUR itself does not ususally cause an immediate postrenal obstruction. However, it does predispose patients to UTI and chronic scarring. Will continue to monitor patient. Will continue IVF and abx. 07/23/2025: Labs reviewed and patient examined at the bedside. Cr currently 3.5 . Patient also showed substantial uterine prolapse that would have contributed to patient's UTI. Pending cystoscopy and ureteral stent placement pending from urology today. Advise OBGYN consult for management of uterine prolapse. Patient's UOP was 1.4 L. Nava bag showed dark red urine. Bladder irrigation is recommended. 07/24/2025: Labs reviewed and patient examined at the bedside. BUN:80, Cr:3.4, eGFR:14. Yesterday, patient received cystoscopy, bilateral retrograde pyelogram, bilateral ureteroscopy, placement of bilateral ureteral stents, urethral dilation, nava catheter insertion, and Vaginal pessary placement for complete uterovaginal prolapse. During exapination, there was high grade obstruction in bilateral ureter, worse on the right side. There was kinking of ureter at a 90 degree from the bladder. A lot of puslike material was draining from the both kidneys. Stent was placed on both sides of ureter. Nava bag showed dark red urine, like due to the procedure done yesterday. Currently there is no need for dialysis. Will continue to monitor. 07/25/2025: Labs reviewed and patient examined at the bedside. BUN: 71, Cr:2.4, eGFR:21. CK 3137. The nava bag was filled with hematuria likely from the ureter stent placement. Per OBGYN consult, the uterovaginal prolapse causing urinary retention has been treated with vaginal pessary. Does not recommend immediate hysterectomy at this moment, but, in the future should consider minimally invasive hysterectomy combined with sacrospinous or sacral colpopexy suspension procedure at tertiary care center Exam Vital Signs Temp Pulse Resp BP Pulse Ox O2 Del Method O2 Flow Rate 96.9 F 80 18 122/75 99 Room Air 4 07/25/25 08:00 07/25/25 08:00 07/25/25 08:00 07/25/25 08:00 07/25/25 08:00 07/25/25 08:00 07/25/25 04:00 Narrative Exam General: No acute distress, well nourished, AAO x3 Eye: PERRL, EOMI, normal conjunctiva, no scleral icterus HENT: Normocephalic, atraumatic, hearing intact to conversation at normal volume, moist oral mucosa Neck: Supple, non-tender, no JVD, no lymphadenopathy Lungs: Non-labored respirations, symmetric chest rise, Clear to auscultate bilaterally, No wheezing, rhonchi, crackles Heart: Peripheral pulses intact bilaterally, Regular Rate and Rhythm. Abdomen: Soft, non-tender, non-distended, no palpable masses Musculoskeletal: Normal range of motion and strength, No cyanosis or edema, No visible joint swelling, Ecchymosis around left eye Skin: Skin is warm, dry, no rashes or lesions. Psychiatric: Cooperative, appropriate mood and affect, Awake and alert, not agitated Neuro: Cranial nerves II-XII grossly intact. Sensations intact to light touch. Objective Labs 07/26/25 05:17 07/26/25 05:17 Labs: Laboratory Results - last 24 hr 07/25/25 05:09 WBC 14.1 H D RBC 3.46 L Hgb 10.7 L Hct 32.0 L MCV 93 MCH 30.9 MCHC 33.4 RDW Std Deviation 48.7 H Plt Count 164 D Neut % (Auto) 86 H Lymph % (Auto) 6 L [place] % (Auto) 7 Eos % (Auto) 0 Baso % (Auto) 0 Neut # (Auto) 12.1 H Lymph # (Auto) 0.9 L [place] # (Auto) 1.0 H Eos # (Auto) 0.0 Baso # (Auto) 0.0 Immature Gran # (Auto) 0.17 H Absolute Nucleated RBC 0.00 Immature Gran % 1 H Nucleated RBC % 0 Sodium 146 H Potassium 3.5 D Chloride 111 H Carbon Dioxide 21.3 Anion Gap 14 BUN 71 H Creatinine 2.4 H D Estim Creat Clear Calc 23.4 L eGFR 21 L BUN/Creatinine Ratio 30 H Glucose 178 H D Calculated Osmolality 315 H Calcium 8.8 Corrected Calcium 9.4 Phosphorus 3.2 Albumin 3.3 L ABG Interpretation ABG results: 07/21/25 20:46 VBG pH 7.44 VBG pCO2 24 L VBG pO2 67 H VBG Base Excess -7 L Quality Measures Quality Measures none Advance care planning discussed with:: patient and other Assessment & Plan Assessment Current Active Medications: Generic Name Dose Route Start Last Admin Trade Name Freq PRN Reason Stop Dose Admin Acetaminophen 650 mg 07/21/25 21:13 Acetaminophen 325 Mg Tablet PO 08/20/25 21:12 Q4HR PRN Pain Scale 1-3 (Mild) Citric Acid/Sodium Citrate 30 ml 07/25/25 09:00 Citric Acid/Sodium Citr 15 Ml Udc (Bicitra) PO 08/24/25 08:59 BID DARIEL Dextrose 25 ml 07/22/25 17:56 Dextrose 50%-Water Inj 50 Ml Syringe IV 08/21/25 17:55 Q15MIN PRN BG 50-70 responsive npo pt Dextrose 50 ml 07/22/25 17:56 Dextrose 50%-Water Inj 50 Ml Syringe IV 08/21/25 17:55 Q15MIN PRN BG <50 OR BG <70 & pt unresponsive Glucagon 1 mg 07/22/25 17:56 Glucagon Inj 1 Mg Vial IM Q15MIN PRN BG <70, and no IV access Hydromorphone HCl 1 mg 07/21/25 21:15 07/23/25 05:53 Hydromorphone Inj 2 Mg/Ml Vial IVP 07/26/25 21:14 1 mg Q4HR PRN Administration PAIN SCALE 7-10 Hydromorphone HCl 0.5 mg 07/21/25 21:15 Hydromorphone Inj 2 Mg/Ml Vial IVP 07/26/25 21:14 Q4HR PRN PAIN SCALE 4-6 Levofloxacin/Dextrose 500 mg in 100 mls @ 66.667 mls/hr 07/25/25 09:00 Levaquin Ivpb IV 08/01/25 08:59 Q48H DARIEL Protocol Ferumoxytol 510 mg/ Sodium 117 mls @ 234 mls/hr 07/25/25 09:00 Chloride IV 07/25/25 09:29 X1 ONE Insulin Human Lispro 0 unit 07/23/25 17:00 07/25/25 07:22 Insulin Lispro (Admelog) 1 Unit/0.01 Ml Unit SC 08/22/25 16:59 1 unit ACHS DARIEL Administration Protocol Ondansetron HCl 4 mg 07/22/25 18:21 07/22/25 18:33 Ondansetron Inj 2 Mg/Ml Inj 2 Ml IVP 08/21/25 18:20 4 mg Q6HR PRN Administration NAUSEA OR VOMITING Protocol Plan 74y/o F with PMH of HTN, uterine prolapse established with [employer] RE[employer]IVE outpatient and GERD presented to the hospital on 07/21/2025 with a history of 3 episodes of ground level falls associated with generalized weaknesss at the time of each fall. Pt was admitted for rhabdomyolysis/UTI evaluation and management. Nephrology has been consulted for management of JOSE, rhabomyolysis and UTI. #JOSE #2/2 Nausea/Vomiting/Diarrhea VS Rhabdomyolysis VS Urinary retention - Improving #Complete uterovaginal prolapse - Resolved with vaginal Pessary #Pyelonephritis - Improving -Patient's past Cr was 0.67 in 2023. On admission, her Cr 4.3 which shows that she have JOSE. -Upon admission, BUN:68, Cr:4.3, eGFR:10. No past labs to know baseline. -No edema, lungs clear, mucus membranes dry. -CTAP (07/21/2025): Moderate to prominent right hydronephrosis, mild to moderate left hydronephrosis, no renal or ureteral calculi, mild urinary bladder wall thickening, highest on the differential list would be vesicoureteral reflux and significant urinary tract and bladder infection -Renal US (07/22/2025): Right kidney 11.8 cm cortex 1.7 cm, Advanced right hydronephrosis, Left kidney 14.2 cm cortex 1.7 cm, Moderate Left hydronephrosis, Contracted urinary bladder. -The cause of Jose is likely to be multi-factorial. Pre-renal cause include nausea, vomiting, and diarrhea, likely caused by Mounjaro, and since she had significant weight loss after using it, perhaps the dosage might be too much for patient's body VS Instrinsic renal cause likely due to ATN caused by rhabdomyolysis VS Post-renal as evidenced by CT scan and Renal US showing bilateral hydronephrosis, but cause is less clear because based on ED note, patient has drained very little urine when nava catheter was first introduced. The cause can be due to uterine prolapse. Vesicoureteral reflux can contribute to the picture of bilateral hydronephrosis and anuria despite nava, but VUR itself does not ususally cause an immediate postrenal obstruction. However, it does predispose patients to UTI and chronic scarring. - (07/23/2025) Cystoscopy, bilateral retrograde pyelogram, bilateral ureteroscopy, placement of bilateral ureteral stents, urethral dilation, nava catheter insertion, and Vaginal pessary placement for complete ureterovaginal prolapse. During exapination, there was high grade obstruction in bilateral ureter, worse on the right side. There was kinking of ureter at a 90 degree from the bladder. A lot of puslike material was draining from the both kidneys. Stent was placed on both sides of ureter. Nava bag showed dark red urine, like due to the procedure done yesterday. Currently there is no need for dialysis. Will continue to monitor. -Although JOSE is caused by multifactorial etiologies, Post renal urinary retention caused by Complete uterovaginal prolapse has played biggest role in patient's sepsis and JOSE. Plan: -Avoid nephrotoxins -Renally dose medication -On Nava Catheter -Recommend OBGYN consult for Uterine prolapse evaluation and possible hysterectomy in outpatient setting. #Sepsis - Resolved #UTI #Pyelonephritis -On admission, Clinical picture meets 3/4 SIRS criteria: T 101.8 (>100.4 or <96.8F), RR 22 (>20/min), HR 111 (>90/min), WBC 11.8 (>12 or <4K or Bands >10%). -Lactic acid: 1.8 -UTI as a source of infection -On admission, UA showed: Urine blood 3+, Urine RBC 1000, Urine WBC 1438, urine Protein: 2+. Urine bacteria: 4+ Plan: -On Nava Catheter -Currently on levofloxacin 500 mg IV. #Rhabdomyolysis - Resolving #2/2 Ground level falls #Acute Tubular Necrosis -Episodes of acute muscular weakness. But denies muscular pain or swelling, or brown/tea-colored urine. -Episodes of multiple falls due to weakness. Traumatic rhabdomyolysis likely due to falls. -No recent surgery, burn, electricity contact, physical restraint -No recent prolonged seizures or psychotic agitation, No medical history of myopathies, alcoholism, drugs (ex. Statins, illicit substances), recent infections, or alcoholism -No recent strenuous exercise, prolonged exposure to severe heat or humidity, and impaired heat loss from reduced sweating due to dehydration. -On admission, AST 125, ALT 59, LDH 284, CK initially 4472, 6 hrs later 3405, BUN:68, Cr:4.3, eGFR:10 -On admission, UA showed: Urine blood 3+, Urine RBC 1000, Urine WBC 1438, urine Protein: 2+. Urine bacteria: 4+ -Elevated CK suggests rhabdomyolysis, elevated AST >ALT suggests muscle injury as main source instead of liver. High LDH non-specific but rises with tissue breakdown. Plan: -Continue to monitor serum CK and electrolyte levels. -If pt volume overloaded, consider diuresis #Cholelithiasis #Pre-diabetic -Management per Primary Hospitalist team Thank you for allowing us to participate in the care of your patient. Assessment and plan discussed with my attending physician Dr. Fernanda Hollis ([id number]-[id number])- Internal medicine resident Attending Provider Attestation/Addendum patient currently seen and examined with resident physician Dr. Hollis. Note reviewed, agree with findings and recommendations. Patient currently seen in medical floor. Family at bedside. JOSE secondary to prerenal azotemia with superimposed bilateral hydronephrosis. Patient also noted to have grade 4 uterine prolapse. Will benefit from urology and gynecology services. Creatinine tad better with IV fluids. Will monitor closely. Plan of care discussed with primary team. Spoke to Dr Wright-s/p ureteral stents for bilateral hydronephrosis. s/p pessary. Patient still having hematuria. On antibiotics. Hemoglobin on the lower side. Creatinine improving.
[2025-07-25] MEDS: EPOETIN ALFA-EPBX INJ 10,000 UNIT/ML VIAL (ESRD) 10000 UNIT SC (08:52)
[2025-07-25] MEDS: LEVOFLOXACIN/D5W 500 MG IVPB 500 MG/100 ML BAG 66.667 MG IV (08:53)
[2025-07-25] MEDS: CITRIC ACID/SODIUM CITR 15 ML UDC (BICITRA) 30 ML PO ×2 (08:53→20:16)
[2025-07-25 09:56] LABS: Iron 113 mcg/dL (50-170); Percent Iron Saturation 63 % (20-55); Total Iron Binding Capacity 177 mcg/dL (250-425); Unsaturated Iron Binding 64 (225-295)
--- NOTE | 2025-07-25 11:11 | PC.SS ---
SS follow up note; Patient will possibly discharge home today.
[2025-07-25] MEDS: ferumoxytoL (NON-ESRD) 510 MG in SODIUM CHLORIDE 0.9% 100 ML 234 MG IV (11:27)
[2025-07-25 11:31] LABS: Hematocrit 32.8 % (36.0-46.0); Hemoglobin 11.0 g/dL (12.0-16.0)
--- NOTE | 2025-07-25 11:51 | PD.RESPRO ---
Documentation for date of: 07/25/25 Subjective Subjective Interval history: 74 yo female with history of hypertension admitted for sepsis with UTI and b/l hydronephrosis secondary to uterine prolapse. No acute events overnight. Patient notes to be feeling better with decreased abdominal pain. Patient has continued hematuria which has worsened since yesterday. She denies fever, chills, nausea and vomiting. Her vitals have been stable. Labs notable for Hg 10.7, Hct 32, Plt 164, BUN 71, Cr 2.4, Glucose 178. Exam Vital Signs Temp Pulse Resp BP Pulse Ox O2 Del Method O2 Flow Rate 97.2 F 84 18 142/80 H 99 Room Air 4 07/25/25 11:49 07/25/25 11:49 07/25/25 11:49 07/25/25 11:49 07/25/25 11:49 07/25/25 11:49 07/25/25 04:00 Narrative Exam General: Patient alert, oriented, in no acute distress. HEENT: Normocephalic, atraumatic. PERRLA, EOMI, no scleral icterus or conjunctival injection. Oropharynx clear, mucous membranes moist. Neck: Supple, trachea midline, no thyromegaly or lymphadenopathy. Cardiac: Regular rate and rhythm, normal S1/S2, no murmurs, rubs, or gallops. Peripheral pulses 2+ and symmetric. No peripheral edema. Lungs: Normal effort, clear to auscultation bilaterally, no wheezes, rales, or rhonchi. Abdomen: Soft, non-tender, non-distended. Normoactive bowel sounds. No hepatosplenomegaly, no rebound/guarding. : Nava catheter in place with gross hematuria noted, no clots, steady draininage, urine dark red in color Extremities: Warm, well-perfused, no clubbing, cyanosis, or edema. Skin: Warm, dry, intact. No rashes, lesions, or ecchymoses. Neuro: Alert and oriented ?3. Speech fluent. Cranial nerves II?XII grossly intact. Psych: Appropriate mood and affect. Cooperative, good eye contact. Objective Labs 07/25/25 11:20 07/25/25 05:09 Labs: Laboratory Results - last 24 hr 07/25/25 07/25/25 05:09 11:20 WBC 14.1 H D RBC 3.46 L Hgb 10.7 L 11.0 L Hct 32.0 L 32.8 L MCV 93 MCH 30.9 MCHC 33.4 RDW Std Deviation 48.7 H Plt Count 164 D Neut % (Auto) 86 H Lymph % (Auto) 6 L [place] % (Auto) 7 Eos % (Auto) 0 Baso % (Auto) 0 Neut # (Auto) 12.1 H Lymph # (Auto) 0.9 L [place] # (Auto) 1.0 H Eos # (Auto) 0.0 Baso # (Auto) 0.0 Immature Gran # (Auto) 0.17 H Absolute Nucleated RBC 0.00 Immature Gran % 1 H Nucleated RBC % 0 Sodium 146 H Potassium 3.5 D Chloride 111 H Carbon Dioxide 21.3 Anion Gap 14 BUN 71 H Creatinine 2.4 H D Estim Creat Clear Calc 23.4 L eGFR 21 L BUN/Creatinine Ratio 30 H Glucose 178 H D Calculated Osmolality 315 H Calcium 8.8 Corrected Calcium 9.4 Phosphorus 3.2 Iron 113 TIBC 177 L Iron Saturation 63 H Unsat Iron Binding 64 L Albumin 3.3 L ABG Interpretation ABG results: 07/21/25 20:46 VBG pH 7.44 VBG pCO2 24 L VBG pO2 67 H VBG Base Excess -7 L Quality Measures Quality Measures none Advance care planning discussed with:: patient and spouse Assessment & Plan Assessment Current Active Medications: Generic Name Dose Route Start Last Admin Trade Name Freq PRN Reason Stop Dose Admin Acetaminophen 650 mg 07/21/25 21:13 Acetaminophen 325 Mg Tablet PO 08/20/25 21:12 Q4HR PRN Pain Scale 1-3 (Mild) Citric Acid/Sodium Citrate 30 ml 07/25/25 09:00 07/25/25 08:53 Citric Acid/Sodium Citr 15 Ml Udc (Bicitra) PO 08/24/25 08:59 30 ml BID DARIEL Administration Dextrose 25 ml 07/22/25 17:56 Dextrose 50%-Water Inj 50 Ml Syringe IV 08/21/25 17:55 Q15MIN PRN BG 50-70 responsive npo pt Dextrose 50 ml 07/22/25 17:56 Dextrose 50%-Water Inj 50 Ml Syringe IV 08/21/25 17:55 Q15MIN PRN BG <50 OR BG <70 & pt unresponsive Glucagon 1 mg 07/22/25 17:56 Glucagon Inj 1 Mg Vial IM Q15MIN PRN BG <70, and no IV access Hydromorphone HCl 1 mg 07/21/25 21:15 07/23/25 05:53 Hydromorphone Inj 2 Mg/Ml Vial IVP 07/26/25 21:14 1 mg Q4HR PRN Administration PAIN SCALE 7-10 Hydromorphone HCl 0.5 mg 07/21/25 21:15 Hydromorphone Inj 2 Mg/Ml Vial IVP 07/26/25 21:14 Q4HR PRN PAIN SCALE 4-6 Insulin Human Lispro 0 unit 07/23/25 17:00 07/25/25 11:35 Insulin Lispro (Admelog) 1 Unit/0.01 Ml Unit SC 08/22/25 16:59 1 unit ACHS DARIEL Administration Protocol Ondansetron HCl 4 mg 07/22/25 18:21 07/22/25 18:33 Ondansetron Inj 2 Mg/Ml Inj 2 Ml IVP 08/21/25 18:20 4 mg Q6HR PRN Administration NAUSEA OR VOMITING Protocol Plan The patient is a 74-year-old female with a history of hypertension who is admitted for rhabdomyolysis and UTI evaluation and management. #Sepsis in setting of UTI #Bilateral hydronephrosis 2/2 to Uterine Prolapse Patient has continued worsening gross hematuria s/p bilateral ureteral stent placement, cystoscopy, ureteroscopy, and vaginal pessary placement likely due to procedural treatment. Patient would have to be monitored until the hematuria has cleared and nava catheter can be discontinued before discharge. Patient notified about arranging outpatient visit at [facility] with urogynecologic support. Blood culture showed no growth after 24 hours. Urine culture positive for Proteus Mirabilis. Plan - Start antibiotic regimen Levofloxacin 250 mg PO for broad spectrum coverage - Pain controlled with Acetaminophen and Dilaudid as needed - Appreciate Dr. Luciano Mayo recs - Recommend future definitive treatment: combined suspension procedure with vaginal hysterectomy for vault suspension - Consider minimally invasive hysterectomy combined with sacrospinous or sacral colpopexy suspension procedure at [facility] with urogynecologic support #S/p ground level fall #JOSE 2/2 to Rhabdomylosis Patient experienced multiple falls due to weakness leading to muscle breakdown and rhabdomylosis. She denies muscular pain and swelling. Patient has continued gross hematuria likely secondary to urologic procedure and will require continued monitoring until cleared and nava can be discontinued. On admission, CK was 4472 now down trending to 3137. AST 125, ALT 59, LDH 284 UA showed: Urine blood 3+, Urine RBC 1000, Urine WBC 1438, Urine Protein: 2+. Urine bacteria: 4+. Plan - Monitor hematuria on Nava Catheter - Referral to PT for multiple falls #Cholelithiasis Found on CT abdominal pelvis. Abdominal pain, nausea, vomiting and postprandial pain. Plan - Continue to monitor #Pre-diabetic Patient's HgbA1c was 6.[address] patient on sliding scale and monitor blood sugars. Plan - Started on insulin sliding scale - Monitor blood sugars Hospital Maintenance: Dispo: medsurg DVT ppx: Lovenox GI ppx: none Diet: NPO after midnight IV Lines: Peripheral IV Code Status: Full Code Patient seen and assessed under supervision of attending physician Dr. Bass. Jimmy Rodriguez JUVENAL, Internal Medicine Attending Provider Attestation/Addendum I have discussed and was present for the essential components of the history, physical examination, diagnosis, and treatment plan with the resident. I agree with the patient's care as documented by the resident and amended herein by me. Hugo Bass DO. Although this document has been carefully reviewed, there may still be some phonetic and other typographical errors. These errors are purely grammatical due to imperfections in the software program and should not be construed in any way to compromise the substance of the patient's medical care during this visit. Patient seen and evaluated this AM. No acute events overnight, vital signs stable, patient afebrile, urine still very dark and red, per urology recommendations, will discharge patient once the urine clears and Nava can be removed. Will keep the patient on levofloxacin at this time however will convert to oral which has been renally dosed. Patient otherwise doing well, renal function improving, will continue to monitor closely.
--- NOTE | 2025-07-25 11:58 | PC.SS ---
SS was informed by PT Joe that patient would like outpatient PT. SS faxed over PT referral.
--- NOTE | 2025-07-25 13:46 | PC.PT ---
PT eval only. Patient is xI with bed mobility, transfers, and ambulation. Patient is safe to ambulate to the bathroom and in the halls with 1 family member or staff. RN made aware.
[2025-07-26] VITALS (7 sets, daily range): BP systolic 114–158; BP diastolic 57–77; PULSE 70–90; RESP 18–23; TEMP 36.1–36.9; O2SAT 93–98
[2025-07-26 06:15] LABS: Basophils # (Auto) 0.0 Thou/mm3 (0.0-0.2); Basophils % (Auto) 0 % (0-2.5); Eosinophils # (Auto) 0.0 Thou/mm3 (0.0-0.5); Eosinophils % (Auto) 0 % (0-10); Hematocrit 28.1 % (36.0-46.0); Hemoglobin 9.2 g/dL (12.0-16.0); Immature Granulocytes Auto 0.11 Thou/mm3 (0.00-0.00); Lymphocytes # (Auto) 1.7 Thou/mm3 (1.0-4.8); Lymphocytes % (Auto) 18 % (10-50); Mean Corpuscular HGB Conc 32.7 g/dl (31.0-37.0); Mean Corpuscular Hemoglobin 30.5 pg (25.0-35.0); Mean Corpuscular Volume 93 fL (80-100); Monocytes # (Auto) 1.0 Thou/mm3 (0.0-0.8); Monocytes % (Auto) 10 % (0-12); Neutrophils # (Auto) 6.5 Thou/mm3 (1.8-7.7); Neutrophils % (Auto) 70 % (37-80); Nucleated Red Blood Cell # 0.00 Thou/mm3 (0.00-0.00); Nucleated Red Blood Cell % 0 /100 WBC (0); Platelet Count 189 Thou/mm3 (140-440); RDW Standard Deviation 49.0 fL (36.4-46.3); Red Blood Count 3.02 Miln/mm3 (4.00-5.20); White Blood Count 9.3 Thou/mm3 (3.6-11.0)
[2025-07-26 06:51] LABS: Albumin, Serum 3.1 gm/dL (3.4-4.8); Anion Gap 11 (7-16); BUN/Creatinine Ratio 28 Ratio (12-20); Blood Urea Nitrogen 50 mg/dL (9-23); Calcium 8.8 mg/dL (8.3-10.6); Calcium (Corrected) 9.5 mg/dL (8.5-10.1); Carbon Dioxide 21.8 mMol/L (20.0-31.0); Chloride 114 mMol/L (98-107); Creatinine (Component) 1.8 mg/dL (0.6-1.3); Estimated Creatinine Clearance 31.4 mL/min (>60); Glucose 93 mg/dL (74-106); Osmolality,Calculated 305 (275-295); Phosphorous 3.2 mg/dL (2.4-5.1); Potassium 3.8 mMol/L (3.4-5.1); Sodium 147 mMol/L (136-145); eGFR 30 See Note
[2025-07-26] MEDS: CITRIC ACID/SODIUM CITR 15 ML UDC (BICITRA) 30 ML PO ×2 (09:22→21:37)
--- NOTE | 2025-07-26 11:57 | PD.RESPRO ---
Documentation for date of: 07/26/25 Subjective Subjective Interval history: Patient seen and assessed in hospital bed denies having any concerning symptoms at this time and kidney functions continue to improve. Patient continues to have Nava catheter which is draining gross hematuria which urology believes is likely secondary to [place]uin pus and obstruction which was amended with placement of ureteral stents. Urology requesting nuclear medicine scan to assess for renal function and flow; moreover, order has been placed but expectations are nothing will be completed on Saturday 07/28. Will continue monitor the patient's Nava bag and expect discharge within the next 48 hours upon completion of the nuclear medicine scan. Exam Vital Signs Temp Pulse Resp BP Pulse Ox O2 Del Method O2 Flow Rate 97.4 F 85 19 114/57 L 97 Room Air 4 07/26/25 08:00 07/26/25 08:00 07/26/25 08:00 07/26/25 08:00 07/26/25 08:00 07/26/25 08:00 07/25/25 04:00 Narrative Exam General: Patient alert, oriented, in no acute distress. HEENT: Normocephalic, atraumatic. PERRLA, EOMI, no scleral icterus or conjunctival injection. Oropharynx clear, mucous membranes moist. Neck: Supple, trachea midline, no thyromegaly or lymphadenopathy. Cardiac: Regular rate and rhythm, normal S1/S2, no murmurs, rubs, or gallops. Peripheral pulses 2+ and symmetric. No peripheral edema. Lungs: Normal effort, clear to auscultation bilaterally, no wheezes, rales, or rhonchi. Abdomen: Soft, non-tender, non-distended. Normoactive bowel sounds. No hepatosplenomegaly, no rebound/guarding. : Nava catheter in place with gross hematuria noted, no clots, steady draininage, urine dark red in color Extremities: Warm, well-perfused, no clubbing, cyanosis, or edema. Skin: Warm, dry, intact. No rashes, lesions, or ecchymoses. Neuro: Alert and oriented ?3. Speech fluent. Cranial nerves II?XII grossly intact. Psych: Appropriate mood and affect. Cooperative, good eye contact. Objective Labs 07/26/25 05:17 07/26/25 05:17 Labs: Laboratory Results - last 24 hr 07/26/25 05:17 WBC 9.3 RBC 3.02 L Hgb 9.2 L Hct 28.1 L MCV 93 MCH 30.5 MCHC 32.7 RDW Std Deviation 49.0 H Plt Count 189 Neut % (Auto) 70 Lymph % (Auto) 18 [place] % (Auto) 10 Eos % (Auto) 0 Baso % (Auto) 0 Neut # (Auto) 6.5 Lymph # (Auto) 1.7 [place] # (Auto) 1.0 H Eos # (Auto) 0.0 Baso # (Auto) 0.0 Immature Gran # (Auto) 0.11 H Absolute Nucleated RBC 0.00 Immature Gran % 1 H Nucleated RBC % 0 Sodium 147 H Potassium 3.8 Chloride 114 H Carbon Dioxide 21.8 Anion Gap 11 BUN 50 H Creatinine 1.8 H D Estim Creat Clear Calc 31.4 L eGFR 30 L BUN/Creatinine Ratio 28 H Glucose 93 D Calculated Osmolality 305 H Calcium 8.8 Corrected Calcium 9.5 Phosphorus 3.2 Albumin 3.1 L ABG Interpretation ABG results: 07/21/25 20:46 VBG pH 7.44 VBG pCO2 24 L VBG pO2 67 H VBG Base Excess -7 L Quality Measures Quality Measures none Advance care planning discussed with:: patient Assessment & Plan Assessment Current Active Medications: Generic Name Dose Route Start Last Admin Trade Name Floyd PRN Reason Stop Dose Admin Acetaminophen 650 mg 07/21/25 21:13 Acetaminophen 325 Mg Tablet PO 08/20/25 21:12 Q4HR PRN Pain Scale 1-3 (Mild) Citric Acid/Sodium Citrate 30 ml 07/25/25 09:00 07/26/25 09:22 Citric Acid/Sodium Citr 15 Ml Udc (Bicitra) PO 08/24/25 08:59 30 ml BID DARIEL Administration Dextrose 25 ml 07/22/25 17:56 Dextrose 50%-Water Inj 50 Ml Syringe IV 08/21/25 17:55 Q15MIN PRN BG 50-70 responsive npo pt Dextrose 50 ml 07/22/25 17:56 Dextrose 50%-Water Inj 50 Ml Syringe IV 08/21/25 17:55 Q15MIN PRN BG <50 OR BG <70 & pt unresponsive Glucagon 1 mg 07/22/25 17:56 Glucagon Inj 1 Mg Vial IM Q15MIN PRN BG <70, and no IV access Hydromorphone HCl 1 mg 07/21/25 21:15 07/23/25 05:53 Hydromorphone Inj 2 Mg/Ml Vial IVP 07/26/25 21:14 1 mg Q4HR PRN Administration PAIN SCALE 7-10 Hydromorphone HCl 0.5 mg 07/21/25 21:15 Hydromorphone Inj 2 Mg/Ml Vial IVP 07/26/25 21:14 Q4HR PRN PAIN SCALE 4-6 Levofloxacin/Dextrose 750 mg in 150 mls @ 100 mls/hr 07/26/25 10:31 Levaquin Ivpb IV 07/26/25 12:00 X1 ONE Insulin Human Lispro 0 unit 07/23/25 17:00 07/26/25 11:14 Insulin Lispro (Admelog) 1 Unit/0.01 Ml Unit SC 08/22/25 16:59 Not Given ACHS DARIEL Protocol Ondansetron HCl 4 mg 07/22/25 18:21 07/22/25 18:33 Ondansetron Inj 2 Mg/Ml Inj 2 Ml IVP 08/21/25 18:20 4 mg Q6HR PRN Administration NAUSEA OR VOMITING Protocol Plan 74-year-old female with a history of hypertension who is admitted for rhabdomyolysis and UTI evaluation and management. #Sepsis in setting of UTI #Bilateral hydronephrosis 2/2 to Uterine Prolapse Patient has continued worsening gross hematuria s/p bilateral ureteral stent placement, cystoscopy, ureteroscopy, and vaginal pessary placement likely due to procedural treatment. Patient would have to be monitored until the hematuria has cleared and nava catheter can be discontinued before discharge. Patient notified about arranging outpatient visit at [facility] with urogynecologic support. Blood culture showed no growth after 24 hours. Urine culture positive for Proteus Mirabilis. Plan: - Increase Levaquin to 750 mg p.o. every 48h - Pain controlled with Acetaminophen and Dilaudid as needed - Appreciate Dr. 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 She denies muscular pain and swelling. Patient has continued gross hematuria likely secondary to urologic procedure and will require continued monitoring until cleared and nava can be discontinued. On admission, CK was 4472 now down trending to 3137. AST 125, ALT 59, LDH 284 UA showed: Urine blood 3+, Urine RBC 1000, Urine WBC 1438, Urine Protein: 2+. Urine bacteria: 4+. Plan: - Monitor hematuria on Nava Catheter - Urology recommends obtaining nuclear medicine scan to monitor patient's flow and kidney function, order placed - Referral to PT for multiple falls #Cholelithiasis Found on CT abdominal pelvis. Abdominal pain, nausea, vomiting and postprandial pain. Plan: - Continue to monitor #Pre-diabetic Patient's HgbA1c was 6.[address] patient on sliding scale and monitor blood sugars. Plan: - Started on insulin sliding scale - Monitor blood sugars Hospital Maintenance: Dispo: medsurg DVT ppx: Lovenox GI ppx: none Diet: NPO after midnight IV Lines: Peripheral IV Code Status: Full Code Patient seen and assessed with attending Dr. Kali Hanson DO PGY-2 Internal Medicine - GME Attending Provider Attestation/Addendum I have discussed and was present for the essential components of the history, physical examination, diagnosis, and treatment plan with the resident. I agree with the patient's care as documented by the resident and amended herein by me. Hugo Bass DO. Although this document has been carefully reviewed, there may still be some phonetic and other typographical errors. These errors are purely grammatical due to imperfections in the software program and should not be construed in any way to compromise the substance of the patient's medical care during this visit.
[2025-07-26] MEDS: LEVOFLOXACIN/D5W 750MG IVPB 750 MG/150 ML BAG 100 MG IV (12:16)
--- NOTE | 2025-07-26 19:12 | ESPR_ITS ---
Documentation for date of: 07/26/25 Subjective Subjective Interval history: 74y/o F with PMH of HTN, uterine prolapse established with [employer] outpatient and GERD presented to the hospital on 07/21/2025 with a history of 3 episodes of ground level falls associated with generalized weaknesss at the time of each fall. The episodes occurred once daily over the past three days during which she did not have any chest pain, paplation, or loss of consciousness. She reports being on Mounjaro and notes an approximate 10 pounds weight loss since initiation. Additionally, she endorses urinary symptoms for the past week, including coining difficulties, dysuria, hematuria and a sensation of incomplete bladder emptying. At the time she of ED visit, patient complained of Nausea, mouth dryness and diarrhea. Denies chest pain, palpation, SOB, abdominal pain, N/V, fevers or chills. Pt was admitted for rhabdomyolysis/UTI evaluation and management. Nephrology has been consulted for management of NICK, rhabomyolysis and UTI. 07/22/2025: Labs reviewed and patient examined at the bedside. Patient's past Cr was 0.67 in 2023. On admission, her Cr 4.3 which shows that she have NICK. The cause of Nick is likely to be multi-factorial. Pre-renal cause include nausea, vomiting, and diarrhea, likely caused by ozempic, and since she had significant weight loss after using it, perhaps the dosage might be too much for patient's body. Instrinsic renal cause likely due to ATN caused by rhabdomyolysis. Post- renal as evidenced by CT scan and Renal US showing bilateraly hydronephrosis, but cause is less clear because based on ED note, patient has drained very little urine when nava catheter was first introduced. The cause can be due to uterine prolapse. Vesicoureteral reflux can contribute to the picture of bilateral hydronephrosis and anuria despite nava, but VUR itself does not ususally cause an immediate postrenal obstruction. However, it does predispose patients to UTI and chronic scarring. Will continue to monitor patient. Will continue IVF and abx. 07/23/2025: Labs reviewed and patient examined at the bedside. Cr currently 3.5 . Patient also showed substantial uterine prolapse that would have contributed to patient's UTI. Pending cystoscopy and ureteral stent placement pending from urology today. Advise OBGYN consult for management of uterine prolapse. Patient's UOP was 1.4 L. Nava bag showed dark red urine. Bladder irrigation is recommended. 07/24/2025: Labs reviewed and patient examined at the bedside. BUN:80, Cr:3.4, eGFR:14. Yesterday, patient received cystoscopy, bilateral retrograde pyelogram, bilateral ureteroscopy, placement of bilateral ureteral stents, urethral dilation, nava catheter insertion, and Vaginal pessary placement for complete uterovaginal prolapse. During exapination, there was high grade obstruction in bilateral ureter, worse on the right side. There was kinking of ureter at a 90 degree from the bladder. A lot of puslike material was draining from the both kidneys. Stent was placed on both sides of ureter. Nava bag showed dark red urine, like due to the procedure done yesterday. Currently there is no need for dialysis. Will continue to monitor. 07/26/2025: Labs reviewed and patient examined at the bedside. The nava bag was filled with hematuria likely from the ureter stent placement. Per OBGYN consult, the uterovaginal prolapse causing urinary retention has been treated with vaginal pessary. Does not recommend immediate hysterectomy at this moment, but, in the future should consider minimally invasive hysterectomy combined with sacrospinous or sacral colpopexy suspension procedure at tertiary care center. Care discussed with at bedside BUN and creatinine better. Review of Systems Review of Systems Narrative Review of Systems: CONSTITUTIONAL: Patient denies any fever, chills. HEENT: Denies any visual disturbances or hearing problems. CARDIOVASCULAR: Patient denies any chest pain, shortness of breath, swelling in the lower extremities. PULMONARY: Patient denies any shortness of breath, cough. GASTROINTESTINAL: Patient denies any abdominal pain, constipation, nausea, vomiting, diarrhea. GENITOURINARY: Patient denies any urinary symptoms of burning or frequency . ++ hematuria, denies any form in the urine. SKIN: Denies any rash. MUSCULOSKELETAL: Denies any muscular skeletal problems of joint pains. NEUROLOGICAL: Denies any neurological problems of strokes, seizures or confusion. Denies any memory problems. PSYCHIATRIC: Denies any depression or anxiety. LYMPHATICS : No lymphadenopathy Exam Vital Signs Temp Pulse Resp BP Pulse Ox O2 Del Method O2 Flow Rate 36.1 C 79 18 158/77 H 98 Room Air 4 07/26/25 15:51 07/26/25 16:00 07/26/25 15:51 07/26/25 15:51 07/26/25 15:51 07/26/25 15:51 07/25/25 04:00 Narrative Exam GENERAL APPEARANCE: Patient seems to be comfortable, adequately hydrated and nourished. HEENT: EOMI, PERRLA NECK: Neck supple, no JVD or bruit CARDIOVASCULAR: Heart regular, no murmurs LUNGS/CHEST: Chest clear to auscultation. No rales, rhonchi, wheezing ABDOMEN: Soft, nontender, nondistended. No masses. Normal bowel sounds. Nava with hematuria EXTREMITIES: No edema, clubbing or cyanosis. SKIN: Skin exam normal without any rashes MUSCULOSKELETAL: Musculoskeletal exam normal PSYCHIATRIC: Normal mood, affect LYMPHATICS: No lymphadenopathy noted NEUROLOGICAL : No neurological deficits Objective Labs 07/26/25 05:17 07/26/25 05:17 Labs: Laboratory Results - last 24 hr 07/26/25 05:17 WBC 9.3 RBC 3.02 L Hgb 9.2 L Hct 28.1 L MCV 93 MCH 30.5 MCHC 32.7 RDW Std Deviation 49.0 H Plt Count 189 Neut % (Auto) 70 Lymph % (Auto) 18 [place] % (Auto) 10 Eos % (Auto) 0 Baso % (Auto) 0 Neut # (Auto) 6.5 Lymph # (Auto) 1.7 [place] # (Auto) 1.0 H Eos # (Auto) 0.0 Baso # (Auto) 0.0 Immature Gran # (Auto) 0.11 H Absolute Nucleated RBC 0.00 Immature Gran % 1 H Nucleated RBC % 0 Sodium 147 H Potassium 3.8 Chloride 114 H Carbon Dioxide 21.8 Anion Gap 11 BUN 50 H Creatinine 1.8 H D Estim Creat Clear Calc 31.4 L eGFR 30 L BUN/Creatinine Ratio 28 H Glucose 93 D Calculated Osmolality 305 H Calcium 8.8 Corrected Calcium 9.5 Phosphorus 3.2 Albumin 3.1 L ABG Interpretation ABG results: 07/21/25 20:46 VBG pH 7.44 VBG pCO2 24 L VBG pO2 67 H VBG Base Excess -7 L Assessment & Plan Assessment and plan (1) Urinary tract infection: Status: Acute (2) Sepsis: Status: Acute (3) Rhabdomyolysis: Status: Acute (4) Uterine procidentia: Status: Acute Additional Assessment & Plan Additional Plan: #NICK-multifactorial--prerenal from nausea/vomiting/diarrhea versus pigment nephropathy from rhabdo versus urinary retention from a complete ureteral vaginal prolapse. Patient had a bilateral stent placement with Dr. Murphy along with pessary. She is able to walk. Nava catheter with hematuria. Sepsis seems to be improving. Currently on antibiotics for pyelonephritis. Creatinine improving. Recommended increase p.o. fluid intake, Bicitra. Care discussed with primary team.
[2025-07-27] VITALS: BP 116/57; PULSE 71; PULSE 73; RESP 19; TEMP 35.9; O2SAT 94
[2025-07-27 03:15] LABS: Chloride,Urine Random 69.9 mMol/L (55.0-125.0); Creatinine,Random Urine 27 mg/dL (30-125); Potassium,Urine Random < 10 mMol/L (12-62); Sodium,Urine Random 81.1 mMol/L (20.0-110.0)
[2025-07-27 04:00] VITALS: BP 124/66; PULSE 69; RESP 21; TEMP 36; O2SAT 96
[2025-07-27 06:24] LABS: Basophils # (Auto) 0.1 Thou/mm3 (0.0-0.2); Basophils % (Auto) 0 % (0-2.5); Eosinophils # (Auto) 0.1 Thou/mm3 (0.0-0.5); Eosinophils % (Auto) 1 % (0-10); Hematocrit 30.5 % (36.0-46.0); Hemoglobin 9.8 g/dL (12.0-16.0); Immature Granulocytes Auto 0.33 Thou/mm3 (0.00-0.00); Lymphocytes # (Auto) 2.1 Thou/mm3 (1.0-4.8); Lymphocytes % (Auto) 18 % (10-50); Mean Corpuscular HGB Conc 32.1 g/dl (31.0-37.0); Mean Corpuscular Hemoglobin 30.2 pg (25.0-35.0); Mean Corpuscular Volume 94 fL (80-100); Monocytes # (Auto) 0.9 Thou/mm3 (0.0-0.8); Monocytes % (Auto) 8 % (0-12); Neutrophils # (Auto) 7.8 Thou/mm3 (1.8-7.7); Neutrophils % (Auto) 70 % (37-80); Nucleated Red Blood Cell # 0.04 Thou/mm3 (0.00-0.00); Nucleated Red Blood Cell % 0 /100 WBC (0); Platelet Count 268 Thou/mm3 (140-440); RDW Standard Deviation 49.1 fL (36.4-46.3); Red Blood Count 3.25 Miln/mm3 (4.00-5.20); White Blood Count 11.2 Thou/mm3 (3.6-11.0)
[2025-07-27 06:40] LABS: Albumin, Serum 3.4 gm/dL (3.4-4.8); Anion Gap 11 (7-16); BUN/Creatinine Ratio 21 Ratio (12-20); Blood Urea Nitrogen 31 mg/dL (9-23); Calcium 9.3 mg/dL (8.3-10.6); Calcium (Corrected) 9.8 mg/dL (8.5-10.1); Carbon Dioxide 24.9 mMol/L (20.0-31.0); Chloride 109 mMol/L (98-107); Creatinine (Component) 1.5 mg/dL (0.6-1.3); Estimated Creatinine Clearance 37.7 mL/min (>60); Glucose 93 mg/dL (74-106); Osmolality,Calculated 295 (275-295); Phosphorous 4.2 mg/dL (2.4-5.1); Potassium 3.9 mMol/L (3.4-5.1); Sodium 145 mMol/L (136-145); eGFR 37 See Note
[2025-07-27 08:00] VITALS: BP 115/60; PULSE 71; PULSE 76; RESP 17; TEMP 36.2; O2SAT 96
[2025-07-27] MEDS: CITRIC ACID/SODIUM CITR 15 ML UDC (BICITRA) 30 ML PO ×2 (09:04→21:40)
[2025-07-27 12:00] VITALS: BP 121/57; PULSE 71; PULSE 76; RESP 19; TEMP 36.1; O2SAT 96
--- NOTE | 2025-07-27 13:22 | PD.RESPRO ---
Documentation for date of: 07/27/25 Subjective Subjective Interval history: Patient seen and assessed in hospital bed denies having any concerning symptoms at this time. Patient's Nava bag shows improvement in urine discoloration with less hematuria noted than on previous days. Patient understands that urology has requested a nuclear medicine scan of the kidneys to check for renal flow and function. Will reassess with urology on 07/28 regarding need of the following imaging modality as patient's kidney function progressively is improving after the procedure. Will continue monitor the patient for any acute changes. Exam Vital Signs Temp Pulse Resp BP Pulse Ox O2 Del Method O2 Flow Rate 97.0 F 71 19 121/57 L 96 Room Air 4 07/27/25 12:07/27/25 12:07/27/25 12:07/27/25 12:07/27/25 12:07/27/25 12:07/25/25 04:00 Narrative Exam General: Patient alert, oriented, in no acute distress. HEENT: Normocephalic, atraumatic. PERRLA, EOMI, no scleral icterus or conjunctival injection. Oropharynx clear, mucous membranes moist. Neck: Supple, trachea midline, no thyromegaly or lymphadenopathy. Cardiac: Regular rate and rhythm, normal S1/S2, no murmurs, rubs, or gallops. Peripheral pulses 2+ and symmetric. No peripheral edema. Lungs: Normal effort, clear to auscultation bilaterally, no wheezes, rales, or rhonchi. Abdomen: Soft, non-tender, non-distended. Normoactive bowel sounds. No hepatosplenomegaly, no rebound/guarding. : Nava catheter in place with gross hematuria noted but improving, no clots, steady draininage, urine light red/orange in color Extremities: Warm, well-perfused, no clubbing, cyanosis, or edema. Skin: Warm, dry, intact. No rashes, lesions, or ecchymoses. Neuro: Alert and oriented ?3. Speech fluent. Cranial nerves II?XII grossly intact. Psych: Appropriate mood and affect. Cooperative, good eye contact. Objective Labs 07/27/25 05:33 07/27/25 05:33 Labs: Laboratory Results - last 24 hr 07/27/25 07/27/25 02:23 05:33 WBC 11.2 H RBC 3.25 L Hgb 9.8 L Hct 30.5 L MCV 94 MCH 30.2 MCHC 32.1 RDW Std Deviation 49.1 H Plt Count 268 D Neut % (Auto) 70 Lymph % (Auto) 18 [place] % (Auto) 8 Eos % (Auto) 1 Baso % (Auto) 0 Neut # (Auto) 7.8 H Lymph # (Auto) 2.1 [place] # (Auto) 0.9 H Eos # (Auto) 0.1 Baso # (Auto) 0.1 Immature Gran # (Auto) 0.33 H Absolute Nucleated RBC 0.04 H Immature Gran % 3 H Nucleated RBC % 0 Sodium 145 Potassium 3.9 Chloride 109 H Carbon Dioxide 24.9 Anion Gap 11 BUN 31 H Creatinine 1.5 H Estim Creat Clear Calc 37.7 L eGFR 37 L BUN/Creatinine Ratio 21 H Glucose 93 Calculated Osmolality 295 Calcium 9.3 Corrected Calcium 9.8 Phosphorus 4.2 Albumin 3.4 Ur Random Creatinine 27 L Ur Random Sodium 81.1 Ur Random Potassium < 10 L Ur Random Chloride 69.9 ABG Interpretation ABG results: 07/21/25 20:46 VBG pH 7.44 VBG pCO2 24 L VBG pO2 67 H VBG Base Excess -7 L Quality Measures Quality Measures none Advance care planning discussed with:: patient and spouse Assessment & Plan Assessment Current Active Medications: Generic Name Dose Route Start Last Admin Trade Name Freq PRN Reason Stop Dose Admin Acetaminophen 650 mg 07/21/25 21:13 Acetaminophen 325 Mg Tablet PO 08/20/25 21:12 Q4HR PRN Pain Scale 1-3 (Mild) Citric Acid/Sodium Citrate 30 ml 07/25/25 09:00 07/27/25 09:04 Citric Acid/Sodium Citr 15 Ml Udc (Bicitra) PO 08/24/25 08:59 30 ml BID DARIEL Administration Dextrose 25 ml 07/22/25 17:56 Dextrose 50%-Water Inj 50 Ml Syringe IV 08/21/25 17:55 Q15MIN PRN BG 50-70 responsive npo pt Dextrose 50 ml 07/22/25 17:56 Dextrose 50%-Water Inj 50 Ml Syringe IV 08/21/25 17:55 Q15MIN PRN BG <50 OR BG <70 & pt unresponsive Glucagon 1 mg 07/22/25 17:56 Glucagon Inj 1 Mg Vial IM Q15MIN PRN BG <70, and no IV access Insulin Human Lispro 0 unit 07/23/25 17:00 07/27/25 11:42 Insulin Lispro (Admelog) 1 Unit/0.01 Ml Unit SC 08/22/25 16:59 Not Given ACHS DARIEL Protocol Ondansetron HCl 4 mg 07/22/25 18:21 07/22/25 18:33 Ondansetron Inj 2 Mg/Ml Inj 2 Ml IVP 08/21/25 18:20 4 mg Q6HR PRN Administration NAUSEA OR VOMITING Protocol Plan 74-year-old female with a history of hypertension who is admitted for rhabdomyolysis and UTI evaluation and management. #Sepsis in setting of UTI #Bilateral hydronephrosis 2/2 to Uterine Prolapse Patient has continued worsening gross hematuria s/p bilateral ureteral stent placement, cystoscopy, ureteroscopy, and vaginal pessary placement likely due to procedural treatment. Patient would have to be monitored until the hematuria has cleared and nava catheter can be discontinued before discharge. Patient notified about arranging outpatient visit at [facility] with urogynecologic support. Blood culture showed no growth after 24 hours. Urine culture positive for Proteus Mirabilis. Plan: - Increase Levaquin to 750 mg p.o. every 48h - Pain controlled with Acetaminophen and Dilaudid as needed - Appreciate Dr. 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 She denies muscular pain and swelling. Patient has continued gross hematuria likely secondary to urologic procedure and will require continued monitoring until cleared and nava can be discontinued. On admission, CK was 4472 now down trending to 3137. AST 125, ALT 59, LDH 284 UA showed: Urine blood 3+, Urine RBC 1000, Urine WBC 1438, Urine Protein: 2+. Urine bacteria: 4+. JOSE improving post procedure (bilateral ureteral stent placement, cystoscopy, ureteroscopy) Plan: - Monitor hematuria on Nava Catheter, clear improvement from previous days - Urology recommends obtaining nuclear medicine scan to monitor patient's flow and kidney function, order placed - Referral to PT for multiple falls #Cholelithiasis Found on CT abdominal pelvis. Abdominal pain, nausea, vomiting and postprandial pain. Plan: - Continue to monitor #Pre-diabetic Patient's HgbA1c was 6.[address] patient on sliding scale and monitor blood sugars. Plan: - Started on insulin sliding scale - Monitor blood sugars Hospital Maintenance: Dispo: medsurg DVT ppx: Lovenox GI ppx: none Diet: NPO after midnight IV Lines: Peripheral IV Code Status: Full Code Patient seen and assessed with attending Dr. Kali Hanson DO PGY-2 Internal Medicine - GME Attending Provider Attestation/Addendum I have discussed and was present for the essential components of the history, physical examination, diagnosis, and treatment plan with the resident. I agree with the patient's care as documented by the resident and amended herein by me. Hugo Bass DO. Although this document has been carefully reviewed, there may still be some phonetic and other typographical errors. These errors are purely grammatical due to imperfections in the software program and should not be construed in any way to compromise the substance of the patient's medical care during this visit. Patient seen and evaluated this AM. Patient continues to do very well, no subjective complaints this morning. Urine is much clearer than previous days, was actually completely clear in the tube however there was some red urine in the Nava bag. Creatinine continues to improve at 1.5 today. Will continue renally dosed Levaquin for UTI secondary to Proteus. Will also get the nuclear medicine renal scan tomorrow and possibly DC the patient after urology reviews the imaging and we remove the Nava, which will occur after the urine completely clears. Patient was updated on the plan, will continue to monitor closely while she is here.
--- NOTE | 2025-07-27 13:40 | PD.NEPHPROG ---
Documentation for date of: 07/27/25 Subjective Subjective Interval history: 74y/o F with PMH of HTN, uterine prolapse established with [employer] outpatient and GERD presented to the hospital on 07/21/2025 with a history of 3 episodes of ground level falls associated with generalized weaknesss at the time of each fall. The episodes occurred once daily over the past three days during which she did not have any chest pain, paplation, or loss of consciousness. She reports being on Mounjaro and notes an approximate 10 pounds weight loss since initiation. Additionally, she endorses urinary symptoms for the past week, including coining difficulties, dysuria, hematuria and a sensation of incomplete bladder emptying. At the time she of ED visit, patient complained of Nausea, mouth dryness and diarrhea. Denies chest pain, palpation, SOB, abdominal pain, N/V, fevers or chills. Pt was admitted for rhabdomyolysis/UTI evaluation and management. Nephrology has been consulted for management of NICK, rhabomyolysis and UTI. 07/22/2025: Labs reviewed and patient examined at the bedside. Patient's past Cr was 0.67 in 2023. On admission, her Cr 4.3 which shows that she have NICK. The cause of Nick is likely to be multi-factorial. Pre-renal cause include nausea, vomiting, and diarrhea, likely caused by ozempic, and since she had significant weight loss after using it, perhaps the dosage might be too much for patient's body. Instrinsic renal cause likely due to ATN caused by rhabdomyolysis. Post-renal as evidenced by CT scan and Renal US showing bilateraly hydronephrosis, but cause is less clear because based on ED note, patient has drained very little urine when nava catheter was first introduced. The cause can be due to uterine prolapse. Vesicoureteral reflux can contribute to the picture of bilateral hydronephrosis and anuria despite nava, but VUR itself does not ususally cause an immediate postrenal obstruction. However, it does predispose patients to UTI and chronic scarring. Will continue to monitor patient. Will continue IVF and abx. 07/23/2025: Labs reviewed and patient examined at the bedside. Cr currently 3.5 . Patient also showed substantial uterine prolapse that would have contributed to patient's UTI. Pending cystoscopy and ureteral stent placement pending from urology today. Advise OBGYN consult for management of uterine prolapse. Patient's UOP was 1.4 L. Naav bag showed dark red urine. Bladder irrigation is recommended. 07/24/2025: Labs reviewed and patient examined at the bedside. BUN:80, Cr:3.4, eGFR:14. Yesterday, patient received cystoscopy, bilateral retrograde pyelogram, bilateral ureteroscopy, placement of bilateral ureteral stents, urethral dilation, nava catheter insertion, and Vaginal pessary placement for complete uterovaginal prolapse. During exapination, there was high grade obstruction in bilateral ureter, worse on the right side. There was kinking of ureter at a 90 degree from the bladder. A lot of puslike material was draining from the both kidneys. Stent was placed on both sides of ureter. Nava bag showed dark red urine, like due to the procedure done yesterday. Currently there is no need for dialysis. Will continue to monitor. 07/26/2025: Labs reviewed and patient examined at the bedside. The nava bag was filled with hematuria likely from the ureter stent placement. Per OBGYN consult, the uterovaginal prolapse causing urinary retention has been treated with vaginal pessary. Does not recommend immediate hysterectomy at this moment, but, in the future should consider minimally invasive hysterectomy combined with sacrospinous or sacral colpopexy suspension procedure at tertiary care center. Care discussed with at bedside BUN and creatinine better. 07/27/2025 patient currently seen and medical floor. Resting comfortably. Nava catheter still with hematuria. Labs, medications reviewed. Blood pressure 140/73, heart rate 72. Hemoglobin 9.8, WBC 11.2. Creatinine 1.5. Review of Systems Review of Systems Narrative Review of Systems: CONSTITUTIONAL: Patient denies any fever, chills. HEENT: Denies any visual disturbances or hearing problems. CARDIOVASCULAR: Patient denies any chest pain, shortness of breath, swelling in the lower extremities. PULMONARY: Patient denies any shortness of breath, cough. GASTROINTESTINAL: Patient denies any abdominal pain, constipation, nausea, vomiting, diarrhea. GENITOURINARY: Patient denies any urinary symptoms of burning or frequency . ++ hematuria, denies any form in the urine. SKIN: Denies any rash. MUSCULOSKELETAL: Denies any muscular skeletal problems of joint pains. NEUROLOGICAL: Denies any neurological problems of strokes, seizures or confusion. Denies any memory problems. PSYCHIATRIC: Denies any depression or anxiety. LYMPHATICS : No lymphadenopathy Exam Vital Signs Temp Pulse Resp BP Pulse Ox O2 Del Method O2 Flow Rate 36.1 C 71 19 121/57 L 96 Room Air 4 07/27/25 12:00 07/27/25 12:00 07/27/25 12:00 07/27/25 12:00 07/27/25 12:00 07/27/25 12:00 07/25/25 04:00 Narrative Exam GENERAL APPEARANCE: Patient seems to be comfortable, adequately hydrated and nourished. HEENT: EOMI, PERRLA NECK: Neck supple, no JVD or bruit CARDIOVASCULAR: Heart regular, no murmurs LUNGS/CHEST: Chest clear to auscultation. No rales, rhonchi, wheezing ABDOMEN: Soft, nontender, nondistended. No masses. Normal bowel sounds. Nava with hematuria EXTREMITIES: No edema, clubbing or cyanosis. SKIN: Skin exam normal without any rashes MUSCULOSKELETAL: Musculoskeletal exam normal PSYCHIATRIC: Normal mood, affect LYMPHATICS: No lymphadenopathy noted NEUROLOGICAL : No neurological deficits Objective Labs 07/27/25 05:33 07/27/25 05:33 Labs: Laboratory Results - last 24 hr 07/27/25 07/27/25 02:23 05:33 WBC 11.2 H RBC 3.25 L Hgb 9.8 L Hct 30.5 L MCV 94 MCH 30.2 MCHC 32.1 RDW Std Deviation 49.1 H Plt Count 268 D Neut % (Auto) 70 Lymph % (Auto) 18 [place] % (Auto) 8 Eos % (Auto) 1 Baso % (Auto) 0 Neut # (Auto) 7.8 H Lymph # (Auto) 2.1 [place] # (Auto) 0.9 H Eos # (Auto) 0.1 Baso # (Auto) 0.1 Immature Gran # (Auto) 0.33 H Absolute Nucleated RBC 0.04 H Immature Gran % 3 H Nucleated RBC % 0 Sodium 145 Potassium 3.9 Chloride 109 H Carbon Dioxide 24.9 Anion Gap 11 BUN 31 H Creatinine 1.5 H Estim Creat Clear Calc 37.7 L eGFR 37 L BUN/Creatinine Ratio 21 H Glucose 93 Calculated Osmolality 295 Calcium 9.3 Corrected Calcium 9.8 Phosphorus 4.2 Albumin 3.4 Ur Random Creatinine 27 L Ur Random Sodium 81.1 Ur Random Potassium < 10 L Ur Random Chloride 69.9 ABG Interpretation ABG results: 07/21/25 20:46 VBG pH 7.44 VBG pCO2 24 L VBG pO2 67 H VBG Base Excess -7 L Assessment & Plan Assessment and plan (1) Urinary tract infection: Status: Acute (2) Sepsis: Status: Acute (3) Rhabdomyolysis: Status: Acute (4) Uterine procidentia: Status: Acute Additional Assessment & Plan Additional Plan: #NICK-multifactorial--prerenal from nausea/vomiting/diarrhea versus pigment nephropathy from rhabdo versus urinary retention from a complete ureteral vaginal prolapse. Patient had a bilateral stent placement with Dr. Murphy along with pessary. She is able to walk. Nava catheter with hematuria. Sepsis seems to be improving. Currently on antibiotics for pyelonephritis. Creatinine improving. Recommended increase p.o. fluid intake, Bicitra. Care discussed with primary team.
[2025-07-27 16:00] VITALS: BP 140/73; PULSE 71; PULSE 72; RESP 18; TEMP 36.2; O2SAT 95
--- NOTE | 2025-07-27 16:45 | PC.SS ---
Rounding note: Urine needs to clear up, Renal Nuc Med scan pending. Discharging home 1-2days.
[2025-07-27 20:00] VITALS: BP 134/61; PULSE 74; RESP 18; TEMP 36.2; O2SAT 97
[2025-07-28] VITALS (9 sets, daily range): BP systolic 109–133; BP diastolic 57–76; PULSE 68–97; RESP 16–18; TEMP 36.1–36.6; O2SAT 93–96; BMI 41.6
[2025-07-28 05:52] LABS: Basophils # (Auto) 0.1 Thou/mm3 (0.0-0.2); Basophils % (Auto) 0 % (0-2.5); Eosinophils # (Auto) 0.2 Thou/mm3 (0.0-0.5); Eosinophils % (Auto) 2 % (0-10); Hematocrit 30.6 % (36.0-46.0); Hemoglobin 10.0 g/dL (12.0-16.0); Immature Granulocytes Auto 0.68 Thou/mm3 (0.00-0.00); Lymphocytes # (Auto) 1.8 Thou/mm3 (1.0-4.8); Lymphocytes % (Auto) 15 % (10-50); Mean Corpuscular HGB Conc 32.7 g/dl (31.0-37.0); Mean Corpuscular Hemoglobin 30.8 pg (25.0-35.0); Mean Corpuscular Volume 94 fL (80-100); Monocytes # (Auto) 0.8 Thou/mm3 (0.0-0.8); Monocytes % (Auto) 6 % (0-12); Neutrophils # (Auto) 8.7 Thou/mm3 (1.8-7.7); Neutrophils % (Auto) 71 % (37-80); Nucleated Red Blood Cell # 0.03 Thou/mm3 (0.00-0.00); Nucleated Red Blood Cell % 0 /100 WBC (0); Platelet Count 293 Thou/mm3 (140-440); RDW Standard Deviation 47.8 fL (36.4-46.3); Red Blood Count 3.25 Miln/mm3 (4.00-5.20); White Blood Count 12.3 Thou/mm3 (3.6-11.0)
[2025-07-28 06:13] LABS: Albumin, Serum 3.2 gm/dL (3.4-4.8); Anion Gap 13 (7-16); BUN/Creatinine Ratio 19 Ratio (12-20); Blood Urea Nitrogen 26 mg/dL (9-23); Calcium 9.1 mg/dL (8.3-10.6); Calcium (Corrected) 9.7 mg/dL (8.5-10.1); Carbon Dioxide 25.8 mMol/L (20.0-31.0); Chloride 107 mMol/L (98-107); Creatinine (Component) 1.4 mg/dL (0.6-1.3); Estimated Creatinine Clearance 40.0 mL/min (>60); Glucose 117 mg/dL (74-106); Osmolality,Calculated 296 (275-295); Phosphorous 4.1 mg/dL (2.4-5.1); Potassium 3.5 mMol/L (3.4-5.1); Sodium 146 mMol/L (136-145); eGFR 40 See Note
--- NOTE | 2025-07-28 08:00 | XR_ITS ---
Examination: Nuclear medicine kidney imaging with flow and function Date and time: July 29, 2025, 0856 hours INDICATIONS: History hypertension, bilateral hydronephrosis, status post bilateral ureteral stents, status post cystoscopy ureteroscopy, history hematuria, elevated BUN/creatinine on laboratory examination this month, significant hydronephrosis on stone study July 21, 2025 TECHNIQUE AND FINDINGS: Intravenous administration 10.2 mCi technetium 99m MAG3 with flow and function curves generated right left kidneys to 60 minutes No flow or function left kidney Flow right kidney no function IMPRESSION: No flow or function left kidney Low right kidney no function
[2025-07-28] MEDS: CITRIC ACID/SODIUM CITR 15 ML UDC (BICITRA) 30 ML PO ×2 (08:32→20:35)
--- NOTE | 2025-07-28 09:06 | PD.RESPRO ---
Documentation for date of: 07/28/25 Subjective Subjective Interval history: 74y/o F with PMH of HTN, uterine 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 The episodes occurred once daily over the past three days during which she did not have any chest pain, paplation, or loss of consciousness. She reports being on Mounjaro and notes an approximate 10 pounds weight loss since initiation. Additionally, she endorses urinary symptoms for the past week, including coining difficulties, dysuria, hematuria and a sensation of incomplete bladder emptying. At the time she of ED visit, patient complained of Nausea, mouth dryness and diarrhea. Denies chest pain, palpation, SOB, abdominal pain, N/V, fevers or chills. Pt was admitted for rhabdomyolysis/UTI evaluation and management. Nephrology has been consulted for management of JOSE, rhabomyolysis and UTI. 07/22/2025: Labs reviewed and patient examined at the bedside. Patient's past Cr was 0.67 in 2023. On admission, her Cr 4.3 which shows that she have JOSE. The cause of Jose is likely to be multi-factorial. Pre-renal cause include nausea, vomiting, and diarrhea, likely caused by ozempic, and since she had significant weight loss after using it, perhaps the dosage might be too much for patient's body. Instrinsic renal cause likely due to ATN caused by rhabdomyolysis. Post-renal as evidenced by CT scan and Renal US showing bilateraly hydronephrosis, but cause is less clear because based on ED note, patient has drained very little urine when nava catheter was first introduced. The cause can be due to uterine prolapse. Vesicoureteral reflux can contribute to the picture of bilateral hydronephrosis and anuria despite nava, but VUR itself does not ususally cause an immediate postrenal obstruction. However, it does predispose patients to UTI and chronic scarring. Will continue to monitor patient. Will continue IVF and abx. 07/23/2025: Labs reviewed and patient examined at the bedside. Cr currently 3.5 . Patient also showed substantial uterine prolapse that would have contributed to patient's UTI. Pending cystoscopy and ureteral stent placement pending from urology today. Advise OBGYN consult for management of uterine prolapse. Patient's UOP was 1.4 L. Nava bag showed dark red urine. Bladder irrigation is recommended. 07/24/2025: Labs reviewed and patient examined at the bedside. BUN:80, Cr:3.4, eGFR:14. Yesterday, patient received cystoscopy, bilateral retrograde pyelogram, bilateral ureteroscopy, placement of bilateral ureteral stents, urethral dilation, nava catheter insertion, and Vaginal pessary placement for complete uterovaginal prolapse. During exapination, there was high grade obstruction in bilateral ureter, worse on the right side. There was kinking of ureter at a 90 degree from the bladder. A lot of puslike material was draining from the both kidneys. Stent was placed on both sides of ureter. Nava bag showed dark red urine, like due to the procedure done yesterday. Currently there is no need for dialysis. Will continue to monitor. 07/26/2025: Labs reviewed and patient examined at the bedside. The nava bag was filled with hematuria likely from the ureter stent placement. Per OBGYN consult, the uterovaginal prolapse causing urinary retention has been treated with vaginal pessary. Does not recommend immediate hysterectomy at this moment, but, in the future should consider minimally invasive hysterectomy combined with sacrospinous or sacral colpopexy suspension procedure at tertiary care center. Care discussed with at bedside BUN and creatinine better. 07/27/2025 patient currently seen and medical floor. Resting comfortably. Nava catheter still with hematuria. Labs, medications reviewed. Blood pressure 140/73, heart rate 72. Hemoglobin 9.8, WBC 11.2. Creatinine 1.5. 07/28/2025: Labs reviewed and patient examined at the bedside. BUN: 26, Cr:1.4, eGFR:40. Still hematuria in nava cathether. Pending nuclear medicine kidney imaging per urology. Will continue to monitor. Exam Vital Signs Temp Pulse Resp BP Pulse Ox O2 Del Method O2 Flow Rate 97.0 F 74 18 109/64 95 Room Air 4 07/28/25 04:00 07/28/25 04:00 07/28/25 04:00 07/28/25 04:00 07/28/25 04:00 07/28/25 04:00 07/25/25 04:00 Narrative Exam General: No acute distress, well nourished, AAO x3 Eye: PERRL, EOMI, normal conjunctiva, no scleral icterus HENT: Normocephalic, atraumatic, hearing intact to conversation at normal volume, moist oral mucosa Neck: Supple, non-tender, no JVD, no lymphadenopathy Lungs: Non-labored respirations, symmetric chest rise, Clear to auscultate bilaterally, No wheezing, rhonchi, crackles Heart: Peripheral pulses intact bilaterally, Regular Rate and Rhythm. Abdomen: Soft, non-tender, non-distended, no palpable masses, Nava with hematuria. Musculoskeletal: Normal range of motion and strength, No cyanosis or edema, No visible joint swelling, Ecchymosis around left eye Skin: Skin is warm, dry, no rashes or lesions. Psychiatric: Cooperative, appropriate mood and affect, Awake and alert, not agitated Neuro: Cranial nerves II-XII grossly intact. Sensations intact to light touch. Objective Labs 07/29/25 04:40 07/29/25 04:40 Labs: Laboratory Results - last 24 hr 07/28/25 05:07 WBC 12.3 H RBC 3.25 L Hgb 10.0 L Hct 30.6 L MCV 94 MCH 30.8 MCHC 32.7 RDW Std Deviation 47.8 H Plt Count 293 Neut % (Auto) 71 Lymph % (Auto) 15 [place] % (Auto) 6 Eos % (Auto) 2 Baso % (Auto) 0 Neut # (Auto) 8.7 H Lymph # (Auto) 1.8 [place] # (Auto) 0.8 Eos # (Auto) 0.2 Baso # (Auto) 0.1 Immature Gran # (Auto) 0.68 H Absolute Nucleated RBC 0.03 H Immature Gran % 6 H Nucleated RBC % 0 Sodium 146 H Potassium 3.5 Chloride 107 Carbon Dioxide 25.8 Anion Gap 13 BUN 26 H Creatinine 1.4 H Estim Creat Clear Calc 40.0 L eGFR 40 L BUN/Creatinine Ratio 19 Glucose 117 H Calculated Osmolality 296 H Calcium 9.1 Corrected Calcium 9.7 Phosphorus 4.1 Albumin 3.2 L ABG Interpretation ABG results: 07/21/25 20:46 VBG pH 7.44 VBG pCO2 24 L VBG pO2 67 H VBG Base Excess -7 L Quality Measures Quality Measures none Advance care planning discussed with:: patient Assessment & Plan Assessment Current Active Medications: Generic Name Dose Route Start Last Admin Trade Name Floyd PRN Reason Stop Dose Admin Acetaminophen 650 mg 07/21/25 21:13 Acetaminophen 325 Mg Tablet PO 08/20/25 21:12 Q4HR PRN Pain Scale 1-3 (Mild) Citric Acid/Sodium Citrate 30 ml 07/25/25 09:00 07/28/25 08:32 Citric Acid/Sodium Citr 15 Ml Udc (Bicitra) PO 08/24/25 08:59 30 ml BID DARIEL Administration Dextrose 25 ml 07/22/25 17:56 Dextrose 50%-Water Inj 50 Ml Syringe IV 08/21/25 17:55 Q15MIN PRN BG 50-70 responsive npo pt Dextrose 50 ml 07/22/25 17:56 Dextrose 50%-Water Inj 50 Ml Syringe IV 08/21/25 17:55 Q15MIN PRN BG <50 OR BG <70 & pt unresponsive Glucagon 1 mg 07/22/25 17:56 Glucagon Inj 1 Mg Vial IM Q15MIN PRN BG <70, and no IV access Insulin Human Lispro 0 unit 07/23/25 17:00 07/28/25 08:28 Insulin Lispro (Admelog) 1 Unit/0.01 Ml Unit SC 08/22/25 16:59 Not Given ACHS [facility] Protocol Ondansetron HCl 4 mg 07/22/25 18:21 07/22/25 18:33 Ondansetron Inj 2 Mg/Ml Inj 2 Ml IVP 08/21/25 18:20 4 mg Q6HR PRN Administration NAUSEA OR VOMITING Protocol Plan 74y/o F with PMH of HTN, uterine 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 Pt was admitted for rhabdomyolysis/UTI evaluation and management. Nephrology has been consulted for management of JOSE, rhabomyolysis and UTI. #JOSE - Resolving #2/2 Nausea/Vomiting/Diarrhea VS Rhabdomyolysis VS Urinary retention - Improving #Complete uterovaginal prolapse - Resolved with vaginal Pessary #Pyelonephritis - Improving -Patient's past Cr was 0.67 in 2023. On admission, her Cr 4.3 which shows that she have JOSE. -Upon admission, BUN:68, Cr:4.3, eGFR:10. No past labs to know baseline. -No edema, lungs clear, mucus membranes dry. -CTAP (07/21/2025): Moderate to prominent right hydronephrosis, mild to moderate left hydronephrosis, no renal or ureteral calculi, mild urinary bladder wall thickening, highest on the differential list would be vesicoureteral reflux and significant urinary tract and bladder infection -Renal US (07/22/2025): Right kidney 11.8 cm cortex 1.7 cm, Advanced right hydronephrosis, Left kidney 14.2 cm cortex 1.7 cm, Moderate Left hydronephrosis, Contracted urinary bladder. -The cause of Jose is likely to be multi-factorial. Pre-renal cause include nausea, vomiting, and diarrhea, likely caused by Mounjaro, and since she had significant weight loss after using it, perhaps the dosage might be too much for patient's body VS Instrinsic renal cause likely due to ATN caused by rhabdomyolysis VS Post-renal as evidenced by CT scan and Renal US showing bilateral hydronephrosis, but cause is less clear because based on ED note, patient has drained very little urine when nava catheter was first introduced. The cause can be due to uterine prolapse. Vesicoureteral reflux can contribute to the picture of bilateral hydronephrosis and anuria despite nava, but VUR itself does not ususally cause an immediate postrenal obstruction. However, it does predispose patients to UTI and chronic scarring. - (07/23/2025) Cystoscopy, bilateral retrograde pyelogram, bilateral ureteroscopy, placement of bilateral ureteral stents, urethral dilation, nava catheter insertion, and Vaginal pessary placement for complete ureterovaginal prolapse. During exapination, there was high grade obstruction in bilateral ureter, worse on the right side. There was kinking of ureter at a 90 degree from the bladder. A lot of puslike material was draining from the both kidneys. Stent was placed on both sides of ureter. Nava bag showed dark red urine, like due to the procedure done yesterday. Currently there is no need for dialysis. Will continue to monitor. -Although JOSE is caused by multifactorial etiologies, Post renal urinary retention caused by Complete uterovaginal prolapse has played biggest role in patient's sepsis and JOSE. Plan: -Avoid nephrotoxins -Renally dose medication -On Nava Catheter -Recommend OBGYN consult for Uterine prolapse evaluation and possible hysterectomy in outpatient setting. #Sepsis - Resolved #UTI #Pyelonephritis-Resolving -On admission, Clinical picture meets 3/4 SIRS criteria: T 101.8 (>100.4 or <96.8F), RR 22 (>20/min), HR 111 (>90/min), WBC 11.8 (>12 or <4K or Bands >10%). -Lactic acid: 1.8 -UTI as a source of infection -On admission, UA showed: Urine blood 3+, Urine RBC 1000, Urine WBC 1438, urine Protein: 2+. Urine bacteria: 4+ Plan: -On Nava Catheter #Rhabdomyolysis - Resolved #2/2 Ground level falls #Acute Tubular Necrosis -Episodes of acute muscular weakness. But denies muscular pain or swelling, or brown/tea-colored urine. -Episodes of multiple falls due to weakness. Traumatic rhabdomyolysis likely due to falls. -No recent surgery, burn, electricity contact, physical restraint -No recent prolonged seizures or psychotic agitation, No medical history of myopathies, alcoholism, drugs (ex. Statins, illicit substances), recent infections, or alcoholism -No recent strenuous exercise, prolonged exposure to severe heat or humidity, and impaired heat loss from reduced sweating due to dehydration. -On admission, AST 125, ALT 59, LDH 284, CK initially 4472, 6 hrs later 3405, BUN:68, Cr:4.3, eGFR:10 -On admission, UA showed: Urine blood 3+, Urine RBC 1000, Urine WBC 1438, urine Protein: 2+. Urine bacteria: 4+ -Elevated CK suggests rhabdomyolysis, elevated AST >ALT suggests muscle injury as main source instead of liver. High LDH non-specific but rises with tissue breakdown. Plan: -Continue to monitor serum CK and electrolyte levels. -If pt volume overloaded, consider diuresis #Cholelithiasis #Pre-diabetic -Management per Primary Hospitalist team Thank you for allowing us to participate in the care of your patient. Assessment and plan discussed with my attending physician Dr. Fernanda Hollis ([id number])- Internal medicine resident Attending Provider Attestation/Addendum patient currently seen and examined with resident physician Dr. Hollis. Note reviewed, agree with findings and recommendations. Patient currently seen in medical floor. Family at bedside. JOSE secondary to prerenal azotemia with superimposed bilateral hydronephrosis. Patient also noted to have grade 4 uterine prolapse. Will benefit from urology and gynecology services. Creatinine tad better with IV fluids. Will monitor closely. Plan of care discussed with primary team. Spoke to Dr Wright-s/p ureteral stents for bilateral hydronephrosis. s/p pessary. Patient still having hematuria-clearing. On antibiotics. Hemoglobin on the lower side. Creatinine improving. Per Dr. Murphy-needs a nuclear renal scan prior to discharge to look for the function of the right kidney.
--- NOTE | 2025-07-28 09:29 | PC.SS ---
Follow up note: Waiting Dr. Huynh's recommendations. Pt will return home upon dc.
[2025-07-28] MEDS: LEVOFLOXACIN 250 MG TABLET 750 MG PO (11:23)
--- NOTE | 2025-07-28 11:30 | ESPR_ITS ---
<Statement entered by Pawel Cancino MD - 07/29/25 17:10> I have personally seen and examined the patient, agree with residents assessment and plan Patient plan of care was discussed with the attending physician, Dr. Kali Cancino, PGY2 Documentation for date of: 07/28/25 Subjective Subjective Interval history: Patient had no acute events overnight, vitals have been stable. She is overall feeling better with no reported abdominal pain. She denies fever, chills, nausea, vomiting, or dysuria. Labs significant for WBC 12.2, BUN 26, Cr 1.4, eGFR 30, Ur Random Cr 27, Ur Random Potassium <10. Patient's hematuria has cleared significantly with light brown tinge. Patient requires nuclear medicine scan to assess renal function and discotinuation of nava catheter prior to discharge. Exam Vital Signs Temp Pulse Resp BP Pulse Ox O2 Del Method O2 Flow Rate 97.2 F 69 18 121/65 95 Room Air 4 07/28/25 08:00 07/28/25 08:02 07/28/25 08:00 07/28/25 08:00 07/28/25 08:00 07/28/25 08:00 07/25/25 04:00 Narrative Exam General: Patient alert, oriented, in no acute distress. HEENT: Normocephalic, atraumatic. PERRLA, EOMI, no scleral icterus or conjunctival injection. Oropharynx clear, mucous membranes moist. Cardiac: Regular rate and rhythm, normal S1/S2, no murmurs, rubs, or gallops. Peripheral pulses 2+ and symmetric. No peripheral edema. Lungs: Normal effort, clear to auscultation bilaterally, no wheezes, rales, or rhonchi. Abdomen: Soft, non-tender, non-distended. Normoactive bowel sounds. No hepatosplenomegaly, no rebound/guarding. : Nava catheter in place with gross hematuria now significantly cleared with light brown tinge. No clots, steady drainage. Extremities: Warm, well-perfused, no clubbing, cyanosis, or edema. Skin: Warm, dry, intact. No rashes, lesions, or ecchymoses. Neuro: Alert and oriented ?3. Speech fluent. Cranial nerves II?XII grossly intact. Psych: Appropriate mood and affect. Cooperative, good eye contact. Objective Labs 07/30/25 04:30 07/30/25 04:30 Labs: Laboratory Results - last 24 hr 07/28/25 05:07 WBC 12.3 H RBC 3.25 L Hgb 10.0 L Hct 30.6 L MCV 94 MCH 30.8 MCHC 32.7 RDW Std Deviation 47.8 H Plt Count 293 Neut % (Auto) 71 Lymph % (Auto) 15 [place] % (Auto) 6 Eos % (Auto) 2 Baso % (Auto) 0 Neut # (Auto) 8.7 H Lymph # (Auto) 1.8 [place] # (Auto) 0.8 Eos # (Auto) 0.2 Baso # (Auto) 0.1 Immature Gran # (Auto) 0.68 H Absolute Nucleated RBC 0.03 H Immature Gran % 6 H Nucleated RBC % 0 Sodium 146 H Potassium 3.5 Chloride 107 Carbon Dioxide 25.8 Anion Gap 13 BUN 26 H Creatinine 1.4 H Estim Creat Clear Calc 40.0 L eGFR 40 L BUN/Creatinine Ratio 19 Glucose 117 H Calculated Osmolality 296 H Calcium 9.1 Corrected Calcium 9.7 Phosphorus 4.1 Albumin 3.2 L ABG Interpretation ABG results: 07/21/25 20:46 VBG pH 7.44 VBG pCO2 24 L VBG pO2 67 H VBG Base Excess -7 L Quality Measures Quality Measures none Advance care planning discussed with:: patient Assessment & Plan Assessment Current Active Medications: Generic Name Dose Route Start Last Admin Trade Name Freq PRN Reason Stop Dose Admin Acetaminophen 650 mg 07/21/25 21:13 Acetaminophen 325 Mg Tablet PO 08/20/25 21:12 Q4HR PRN Pain Scale 1-3 (Mild) Citric Acid/Sodium Citrate 30 ml 07/25/25 09:00 07/28/25 08:32 Citric Acid/Sodium Citr 15 Ml Udc (Bicitra) PO 08/24/25 08:59 30 ml BID DARIEL Administration Dextrose 25 ml 07/22/25 17:56 Dextrose 50%-Water Inj 50 Ml Syringe IV 08/21/25 17:55 Q15MIN PRN BG 50-70 responsive npo pt Dextrose 50 ml 07/22/25 17:56 Dextrose 50%-Water Inj 50 Ml Syringe IV 08/21/25 17:55 Q15MIN PRN BG <50 OR BG <70 & pt unresponsive Glucagon 1 mg 07/22/25 17:56 Glucagon Inj 1 Mg Vial IM Q15MIN PRN BG <70, and no IV access Insulin Human Lispro 0 unit 07/23/25 17:00 07/28/25 11:24 Insulin Lispro (Admelog) 1 Unit/0.01 Ml Unit SC 08/22/25 16:59 Not Given ACHS DARIEL Protocol Levofloxacin 750 mg 07/28/25 11:15 07/28/25 11:23 Levofloxacin 250 Mg Tablet PO 08/04/25 11:14 750 mg QDAY DARIEL Administration Ondansetron HCl 4 mg 07/22/25 18:21 07/22/25 18:33 Ondansetron Inj 2 Mg/Ml Inj 2 Ml IVP 08/21/25 18:20 4 mg Q6HR PRN Administration NAUSEA OR VOMITING Protocol Plan 74-year-old female with a history of hypertension who is admitted for management of b/l hydronephrosis s/p b/l ureteral stents. #Bilateral hydronephrosis 2/2 to Uterine Prolapse #Bacteremia in setting of UTI Patient is s/p bilateral ureteral stent placement, cystoscopy, ureteroscopy, and vaginal pessary placement. Patient has markedly improved hematuria with clear, light-brown tinged urine. Patient notified and acknowledged about arranging outpatient visit at [facility] with urogynecologic support for minimally invasive hysterectomy. Blood culture showed no growth after 24 hours. Urine culture positive for Proteus Mirabilis. Labs significant for WBC 12.3. Plan: - Continue Levofloxacin 750 mg PO Q48HR - Pain controlled with Acetaminophen and Dilaudid as needed - Pending nuclear medicine scan to assess patient's flow and kidney function, order placed - Appreciate ObGyn recs: plan for future definitive hysterectomy with concomitant pelvic support procedure (suspension/colpopexy, potentially at tertiary center with urogynecology support) #Ground-level fall #JOSE 2/2 to Rhabdomylosis Patient experienced multiple falls due to weakness leading to muscle breakdown and rhabdomylosis. JOSE improving post procedure (bilateral ureteral stent placement, cystoscopy, ureteroscopy). Labs notable for BUN 26, Cr 1.4. Ur Random Cr 27, Ur Random K <10. Patient will require nuclear medicine scan of the kidneys to assess recovering renal function and subsequent discontinuation of nava catheter prior to discharge. Plan: - Monitor hematuria on Nava Catheter, clear improvement from previous days - Referral to PT for multiple falls #Cholelithiasis Found on CT abdominal pelvis. Abdominal pain, nausea, vomiting and postprandial pain. Plan: - Continue to monitor #Pre-diabetic Patient's HgbA1c was 6.[address]. [address] patient on sliding scale and monitor blood sugars. Plan: - Started on insulin sliding scale - Monitor blood sugars Hospital Maintenance: Dispo: medsurg DVT ppx: Lovenox GI ppx: none Diet: Renal IV Lines: Peripheral IV Code Status: Full Code Patient seen and assessed under supervision of attending physician Dr. Bass. Jimmy Rodriguez Jesus Alberto-, Internal Medicine Attending Provider Attestation/Addendum I have discussed and was present for the essential components of the history, physical examination, diagnosis, and treatment plan with the resident. I agree with the patient's care as documented by the resident and amended herein by me. Hugo Bass DO. Although this document has been carefully reviewed, there may still be some phonetic and other typographical errors. These errors are purely grammatical due to imperfections in the software program and should not be construed in any way to compromise the substance of the patient's medical care during this visit.
[2025-07-29] VITALS (10 sets, daily range): BP systolic 132–143; BP diastolic 64–79; PULSE 63–81; RESP 17–19; TEMP 36.1–36.4; O2SAT 93–96; BMI 40.5
[2025-07-29 05:30] LABS: Basophils # (Auto) 0.1 Thou/mm3 (0.0-0.2); Basophils % (Auto) 1 % (0-2.5); Eosinophils # (Auto) 0.2 Thou/mm3 (0.0-0.5); Eosinophils % (Auto) 1 % (0-10); Hematocrit 31.4 % (36.0-46.0); Hemoglobin 10.1 g/dL (12.0-16.0); Immature Granulocytes Auto 0.75 Thou/mm3 (0.00-0.00); Lymphocytes # (Auto) 1.7 Thou/mm3 (1.0-4.8); Lymphocytes % (Auto) 14 % (10-50); Mean Corpuscular HGB Conc 32.2 g/dl (31.0-37.0); Mean Corpuscular Hemoglobin 30.6 pg (25.0-35.0); Mean Corpuscular Volume 95 fL (80-100); Monocytes # (Auto) 0.8 Thou/mm3 (0.0-0.8); Monocytes % (Auto) 6 % (0-12); Neutrophils # (Auto) 8.5 Thou/mm3 (1.8-7.7); Neutrophils % (Auto) 71 % (37-80); Nucleated Red Blood Cell # 0.03 Thou/mm3 (0.00-0.00); Nucleated Red Blood Cell % 0 /100 WBC (0); Platelet Count 345 Thou/mm3 (140-440); RDW Standard Deviation 47.4 fL (36.4-46.3); Red Blood Count 3.30 Miln/mm3 (4.00-5.20); White Blood Count 11.9 Thou/mm3 (3.6-11.0)
[2025-07-29 06:20] LABS: Albumin, Serum 3.5 gm/dL (3.4-4.8); Anion Gap 11 (7-16); BUN/Creatinine Ratio 15 Ratio (12-20); Blood Urea Nitrogen 22 mg/dL (9-23); Calcium 9.6 mg/dL (8.3-10.6); Calcium (Corrected) 10.0 mg/dL (8.5-10.1); Carbon Dioxide 27.8 mMol/L (20.0-31.0); Chloride 107 mMol/L (98-107); Creatinine (Component) 1.5 mg/dL (0.6-1.3); Estimated Creatinine Clearance 36.8 mL/min (>60); Glucose 102 mg/dL (74-106); Osmolality,Calculated 293 (275-295); Phosphorous 4.3 mg/dL (2.4-5.1); Potassium 3.8 mMol/L (3.4-5.1); Sodium 146 mMol/L (136-145); eGFR 37 See Note
[2025-07-29] MEDS: LEVOFLOXACIN 250 MG TABLET 750 MG PO (08:10)
[2025-07-29] MEDS: CITRIC ACID/SODIUM CITR 15 ML UDC (BICITRA) 30 ML PO ×2 (08:10→20:23)
--- NOTE | 2025-07-29 08:23 | ESPR_ITS ---
Documentation for date of: 07/29/25 Subjective Subjective Interval history: 74y/o F with PMH of HTN, uterine prolapse established with [employer] outpatient and GERD presented to the hospital on 07/21/2025 with a history of 3 episodes of ground level falls associated with generalized weaknesss at the time of each fall. The episodes occurred once daily over the past three days during which she did not have any chest pain, paplation, or loss of consciousness. She reports being on Mounjaro and notes an approximate 10 pounds weight loss since initiation. Additionally, she endorses urinary symptoms for the past week, including coining difficulties, dysuria, hematuria and a sensation of incomplete bladder emptying. At the time she of ED visit, patient complained of Nausea, mouth dryness and diarrhea. Denies chest pain, palpation, SOB, abdominal pain, N/V, fevers or chills. Pt was admitted for rhabdomyolysis/UTI evaluation and management. Nephrology has been consulted for management of JOSE, rhabomyolysis and UTI. 07/22/2025: Labs reviewed and patient examined at the bedside. Patient's past Cr was 0.67 in 2023. On admission, her Cr 4.3 which shows that she have JOSE. The cause of Jose is likely to be multi-factorial. Pre-renal cause include nausea, vomiting, and diarrhea, likely caused by ozempic, and since she had significant weight loss after using it, perhaps the dosage might be too much for patient's body. Instrinsic renal cause likely due to ATN caused by rhabdomyolysis. Post- renal as evidenced by CT scan and Renal US showing bilateraly hydronephrosis, but cause is less clear because based on ED note, patient has drained very little urine when nava catheter was first introduced. The cause can be due to uterine prolapse. Vesicoureteral reflux can contribute to the picture of bilateral hydronephrosis and anuria despite nava, but VUR itself does not ususally cause an immediate postrenal obstruction. However, it does predispose patients to UTI and chronic scarring. Will continue to monitor patient. Will continue IVF and abx. 07/23/2025: Labs reviewed and patient examined at the bedside. Cr currently 3.5 . Patient also showed substantial uterine prolapse that would have contributed to patient's UTI. Pending cystoscopy and ureteral stent placement pending from urology today. Advise OBGYN consult for management of uterine prolapse. Patient's UOP was 1.4 L. Nava bag showed dark red urine. Bladder irrigation is recommended. 07/24/2025: Labs reviewed and patient examined at the bedside. BUN:80, Cr:3.4, eGFR:14. Yesterday, patient received cystoscopy, bilateral retrograde pyelogram, bilateral ureteroscopy, placement of bilateral ureteral stents, urethral dilation, nava catheter insertion, and Vaginal pessary placement for complete uterovaginal prolapse. During exapination, there was high grade obstruction in bilateral ureter, worse on the right side. There was kinking of ureter at a 90 degree from the bladder. A lot of puslike material was draining from the both kidneys. Stent was placed on both sides of ureter. Nava bag showed dark red urine, like due to the procedure done yesterday. Currently there is no need for dialysis. Will continue to monitor. 07/26/2025: Labs reviewed and patient examined at the bedside. The nava bag was filled with hematuria likely from the ureter stent placement. Per OBGYN consult, the uterovaginal prolapse causing urinary retention has been treated with vaginal pessary. Does not recommend immediate hysterectomy at this moment, but, in the future should consider minimally invasive hysterectomy combined with sacrospinous or sacral colpopexy suspension procedure at tertiary care center. Care discussed with at bedside BUN and creatinine better. 07/27/2025 patient currently seen and medical floor. Resting comfortably. Nava catheter still with hematuria. Labs, medications reviewed. Blood pressure 140/73, heart rate 72. Hemoglobin 9.8, WBC 11.2. Creatinine 1.5. 07/28/2025: Labs reviewed and patient examined at the bedside. BUN: 26, Cr:1.4, eGFR:40. Still hematuria in nava cathether. Pending nuclear medicine kidney imaging per urology. Will continue to monitor. 07/29/2025: Labs reviewed and patient examined at the bedside. BUN: 22, Cr:1.5, eGFR:37. Urine is clear yellow in nava bag. Pending nuclear medicine scan to examine high grade right kidney obstruction. Patient will need to consult hystrectmy in outpatient setting. Exam Vital Signs Temp Pulse Resp BP Pulse Ox O2 Del Method O2 Flow Rate 97.1 F 68 18 135/67 H 95 Room Air 4 07/29/25 04:00 07/29/25 04:00 07/29/25 04:00 07/29/25 04:00 07/29/25 04:00 07/29/25 04:00 07/25/25 04:00 Narrative Exam General: No acute distress, well nourished, AAO x3 Eye: PERRL, EOMI, normal conjunctiva, no scleral icterus HENT: Normocephalic, atraumatic, hearing intact to conversation at normal volume, moist oral mucosa Neck: Supple, non-tender, no JVD, no lymphadenopathy Lungs: Non-labored respirations, symmetric chest rise, Clear to auscultate bilaterally, No wheezing, rhonchi, crackles Heart: Peripheral pulses intact bilaterally, Regular Rate and Rhythm. Abdomen: Soft, non-tender, non-distended, no palpable masses, Nava with hematuria. Musculoskeletal: Normal range of motion and strength, No cyanosis or edema, No visible joint swelling, Ecchymosis around left eye Skin: Skin is warm, dry, no rashes or lesions. Psychiatric: Cooperative, appropriate mood and affect, Awake and alert, not agitated Neuro: Cranial nerves II-XII grossly intact. Sensations intact to light touch. Objective Labs 07/29/25 04:40 07/29/25 04:40 Labs: Laboratory Results - last 24 hr 07/29/25 04:40 WBC 11.9 H RBC 3.30 L Hgb 10.1 L Hct 31.4 L MCV 95 MCH 30.6 MCHC 32.2 RDW Std Deviation 47.4 H Plt Count 345 D Neut % (Auto) 71 Lymph % (Auto) 14 [place] % (Auto) 6 Eos % (Auto) 1 Baso % (Auto) 1 Neut # (Auto) 8.5 H Lymph # (Auto) 1.7 [place] # (Auto) 0.8 Eos # (Auto) 0.2 Baso # (Auto) 0.1 Immature Gran # (Auto) 0.75 H Absolute Nucleated RBC 0.03 H Immature Gran % 6 H Nucleated RBC % 0 Sodium 146 H Potassium 3.8 Chloride 107 Carbon Dioxide 27.8 Anion Gap 11 BUN 22 Creatinine 1.5 H Estim Creat Clear Calc 36.8 L eGFR 37 L BUN/Creatinine Ratio 15 Glucose 102 Calculated Osmolality 293 Calcium 9.6 Corrected Calcium 10.0 Phosphorus 4.3 Albumin 3.5 ABG Interpretation ABG results: 07/21/25 20:46 VBG pH 7.44 VBG pCO2 24 L VBG pO2 67 H VBG Base Excess -7 L Quality Measures Quality Measures none Advance care planning discussed with:: patient Assessment & Plan Assessment Current Active Medications: Generic Name Dose Route Start Last Admin Trade Name Floyd PRN Reason Stop Dose Admin Acetaminophen 650 mg 07/21/25 21:13 Acetaminophen 325 Mg Tablet PO 08/20/25 21:12 Q4HR PRN Pain Scale 1-3 (Mild) Citric Acid/Sodium Citrate 30 ml 07/25/25 09:00 07/29/25 08:10 Citric Acid/Sodium Citr 15 Ml Udc (Bicitra) PO 08/24/25 08:59 30 ml BID DARIEL Administration Dextrose 25 ml 07/22/25 17:56 Dextrose 50%-Water Inj 50 Ml Syringe IV 08/21/25 17:55 Q15MIN PRN BG 50-70 responsive npo pt Dextrose 50 ml 07/22/25 17:56 Dextrose 50%-Water Inj 50 Ml Syringe IV 08/21/25 17:55 Q15MIN PRN BG <50 OR BG <70 & pt unresponsive Glucagon 1 mg 07/22/25 17:56 Glucagon Inj 1 Mg Vial IM Q15MIN PRN BG <70, and no IV access Insulin Human Lispro 0 unit 07/23/25 17:00 07/29/25 08:09 Insulin Lispro (Admelog) 1 Unit/0.01 Ml Unit SC 08/22/25 16:59 Not Given ACHS [facility] Protocol Levofloxacin 750 mg 07/28/25 11:15 07/29/25 08:10 Levofloxacin 250 Mg Tablet PO 08/04/25 11:14 750 mg QDAY DARIEL Administration Ondansetron HCl 4 mg 07/22/25 18:21 07/22/25 18:33 Ondansetron Inj 2 Mg/Ml Inj 2 Ml IVP 08/21/25 18:20 4 mg Q6HR PRN Administration NAUSEA OR VOMITING Protocol Plan 74y/o F with PMH of HTN, uterine prolapse established with [employer] outpatient and GERD presented to the hospital on 07/21/2025 with a history of 3 episodes of ground level falls associated with generalized weaknesss at the time of each fall. Pt was admitted for rhabdomyolysis/UTI evaluation and management. Nephrology has been consulted for management of JOSE, rhabomyolysis and UTI. #JOSE - Resolving #2/2 Nausea/Vomiting/Diarrhea VS Rhabdomyolysis VS Urinary retention - Improving #Complete uterovaginal prolapse - Resolved with vaginal Pessary #Pyelonephritis - Improving -Patient's past Cr was 0.67 in 2023. On admission, her Cr 4.3 which shows that she have JOSE. -Upon admission, BUN:68, Cr:4.3, eGFR:10. No past labs to know baseline. -No edema, lungs clear, mucus membranes dry. -CTAP (07/21/2025): Moderate to prominent right hydronephrosis, mild to moderate left hydronephrosis, no renal or ureteral calculi, mild urinary bladder wall thickening, highest on the differential list would be vesicoureteral reflux and significant urinary tract and bladder infection -Renal US (07/22/2025): Right kidney 11.8 cm cortex 1.7 cm, Advanced right hydronephrosis, Left kidney 14.2 cm cortex 1.7 cm, Moderate Left hydronephrosis, Contracted urinary bladder. -The cause of Jose is likely to be multi-factorial. Pre-renal cause include nausea, vomiting, and diarrhea, likely caused by Mounjaro, and since she had significant weight loss after using it, perhaps the dosage might be too much for patient's body VS Instrinsic renal cause likely due to ATN caused by rhabdomyolysis VS Post-renal as evidenced by CT scan and Renal US showing bilateral hydronephrosis, but cause is less clear because based on ED note, patient has drained very little urine when nava catheter was first introduced. The cause can be due to uterine prolapse. Vesicoureteral reflux can contribute to the picture of bilateral hydronephrosis and anuria despite nava, but VUR itself does not ususally cause an immediate postrenal obstruction. However, it does predispose patients to UTI and chronic scarring. - (07/23/2025) Cystoscopy, bilateral retrograde pyelogram, bilateral ureteroscopy, placement of bilateral ureteral stents, urethral dilation, nava catheter insertion, and Vaginal pessary placement for complete ureterovaginal prolapse. During exapination, there was high grade obstruction in bilateral ureter, worse on the right side. There was kinking of ureter at a 90 degree from the bladder. A lot of puslike material was draining from the both kidneys. Stent was placed on both sides of ureter. Nava bag showed dark red urine, like due to the procedure done yesterday. Currently there is no need for dialysis. Will continue to monitor. -Although JOSE is caused by multifactorial etiologies, Post renal urinary retention caused by Complete uterovaginal prolapse has played biggest role in patient's sepsis and JOSE. Plan: -Avoid nephrotoxins -Renally dose medication -On Nava Catheter -Recommend OBGYN consult for Uterine prolapse evaluation and possible hysterectomy in outpatient setting. #Sepsis - Resolved #UTI #Pyelonephritis-Resolving -On admission, Clinical picture meets 3/4 SIRS criteria: T 101.8 (>100.4 or <96.8F), RR 22 (>20/min), HR 111 (>90/min), WBC 11.8 (>12 or <4K or Bands >10%). -Lactic acid: 1.8 -UTI as a source of infection -On admission, UA showed: Urine blood 3+, Urine RBC 1000, Urine WBC 1438, urine Protein: 2+. Urine bacteria: 4+ Plan: -On Nava Catheter #Rhabdomyolysis - Resolved #2/2 Ground level falls #Acute Tubular Necrosis -Episodes of acute muscular weakness. But denies muscular pain or swelling, or brown/tea-colored urine. -Episodes of multiple falls due to weakness. Traumatic rhabdomyolysis likely due to falls. -No recent surgery, burn, electricity contact, physical restraint -No recent prolonged seizures or psychotic agitation, No medical history of myopathies, alcoholism, drugs (ex. Statins, illicit substances), recent infections, or alcoholism -No recent strenuous exercise, prolonged exposure to severe heat or humidity, and impaired heat loss from reduced sweating due to dehydration. -On admission, AST 125, ALT 59, LDH 284, CK initially 4472, 6 hrs later 3405, BUN:68, Cr:4.3, eGFR:10 -On admission, UA showed: Urine blood 3+, Urine RBC 1000, Urine WBC 1438, urine Protein: 2+. Urine bacteria: 4+ -Elevated CK suggests rhabdomyolysis, elevated AST >ALT suggests muscle injury as main source instead of liver. High LDH non-specific but rises with tissue breakdown. Plan: -Continue to monitor serum CK and electrolyte levels. -If pt volume overloaded, consider diuresis #Cholelithiasis #Pre-diabetic -Management per Primary Hospitalist team Thank you for allowing us to participate in the care of your patient. Assessment and plan discussed with my attending physician Dr. Fernanda Hollis (PGY-1)- Internal medicine resident Attending Provider Attestation/Addendum patient currently seen and examined with resident physician Dr. Hollis. Note reviewed, agree with findings and recommendations. Patient currently seen in medical floor. Family at bedside. JOSE secondary to prerenal azotemia with superimposed bilateral hydronephrosis. Patient also noted to have grade 4 uterine prolapse. Will benefit from urology and gynecology services. Creatinine tad better with IV fluids. Will monitor closely. Plan of care discussed with primary team. Spoke to Dr Wright-s/p ureteral stents for bilateral hydronephrosis. s/p pessary. Hematuria cleared. On antibiotics. Hemoglobin on the lower side. Creatinine improving. Per Dr. Murphy-needs a nuclear renal scan prior to discharge to look for the function of the right kidney. Patient had nuclear scan which showed no flow or function in the left kidney. Right kidney did have flow but decreased function. Based on the findings patient clinically seems to have ATN and creatinine improving. Might need repeat renal scan once she ATN recovers.
--- NOTE | 2025-07-29 14:00 | PD.RESPRO ---
Documentation for date of: 07/29/25 Subjective Subjective Interval history: Patient had no acute events overnight, vitals have been stable. She is overall feeling better with no reported abdominal pain. She denies fever, chills, nausea, vomiting, or dysuria. Patient's hematuria has cleared. Patient is scheduled for nuclear medicine scan today to assess renal function. Exam Vital Signs Temp Pulse Resp BP Pulse Ox O2 Del Method O2 Flow Rate 97.1 F 75 17 139/72 H 96 Room Air 4 07/29/25 08:00 07/29/25 12:37 07/29/25 08:00 07/29/25 08:00 07/29/25 08:00 07/29/25 08:00 07/25/25 04:00 Narrative Exam General: Patient alert, oriented, in no acute distress. HEENT: Normocephalic, atraumatic. PERRLA, EOMI, no scleral icterus or conjunctival injection. Oropharynx clear, mucous membranes moist. Cardiac: Regular rate and rhythm, normal S1/S2, no murmurs, rubs, or gallops. Peripheral pulses 2+ and symmetric. No peripheral edema. Lungs: Normal effort, clear to auscultation bilaterally, no wheezes, rales, or rhonchi. Abdomen: Soft, non-tender, non-distended. Normoactive bowel sounds. No hepatosplenomegaly, no rebound/guarding. : Nava catheter in place with no hematuria. No clots, steady drainage. Extremities: Warm, well-perfused, no clubbing, cyanosis, or edema. Skin: Warm, dry, intact. No rashes, lesions, or ecchymoses. Neuro: Alert and oriented ?3. Speech fluent. Cranial nerves II?XII grossly intact. Psych: Appropriate mood and affect. Cooperative, good eye contact. Objective Labs 07/29/25 04:40 07/29/25 04:40 Labs: Laboratory Results - last 24 hr 07/29/25 04:40 WBC 11.9 H RBC 3.30 L Hgb 10.1 L Hct 31.4 L MCV 95 MCH 30.6 MCHC 32.2 RDW Std Deviation 47.4 H Plt Count 345 D Neut % (Auto) 71 Lymph % (Auto) 14 [place] % (Auto) 6 Eos % (Auto) 1 Baso % (Auto) 1 Neut # (Auto) 8.5 H Lymph # (Auto) 1.7 [place] # (Auto) 0.8 Eos # (Auto) 0.2 Baso # (Auto) 0.1 Immature Gran # (Auto) 0.75 H Absolute Nucleated RBC 0.03 H Immature Gran % 6 H Nucleated RBC % 0 Sodium 146 H Potassium 3.8 Chloride 107 Carbon Dioxide 27.8 Anion Gap 11 BUN 22 Creatinine 1.5 H Estim Creat Clear Calc 36.8 L eGFR 37 L BUN/Creatinine Ratio 15 Glucose 102 Calculated Osmolality 293 Calcium 9.6 Corrected Calcium 10.0 Phosphorus 4.3 Albumin 3.5 ABG Interpretation ABG results: 07/21/25 20:46 VBG pH 7.44 VBG pCO2 24 L VBG pO2 67 H VBG Base Excess -7 L Quality Measures Quality Measures none Assessment & Plan Assessment Current Active Medications: Generic Name Dose Route Start Last Admin Trade Name Freq PRN Reason Stop Dose Admin Acetaminophen 650 mg 07/21/25 21:13 Acetaminophen 325 Mg Tablet PO 08/20/25 21:12 Q4HR PRN Pain Scale 1-3 (Mild) Citric Acid/Sodium Citrate 30 ml 07/25/25 09:00 07/29/25 08:10 Citric Acid/Sodium Citr 15 Ml Udc (Bicitra) PO 08/24/25 08:59 30 ml BID DARIEL Administration Dextrose 25 ml 07/22/25 17:56 Dextrose 50%-Water Inj 50 Ml Syringe IV 08/21/25 17:55 Q15MIN PRN BG 50-70 responsive npo pt Dextrose 50 ml 07/22/25 17:56 Dextrose 50%-Water Inj 50 Ml Syringe IV 08/21/25 17:55 Q15MIN PRN BG <50 OR BG <70 & pt unresponsive Glucagon 1 mg 07/22/25 17:56 Glucagon Inj 1 Mg Vial IM Q15MIN PRN BG <70, and no IV access Insulin Human Lispro 0 unit 07/23/25 17:00 07/29/25 08:09 Insulin Lispro (Admelog) 1 Unit/0.01 Ml Unit SC 08/22/25 16:59 Not Given ACHS [facility] Protocol Levofloxacin 750 mg 07/30/25 09:00 Levofloxacin 250 Mg Tablet PO 08/06/25 08:59 Q48H [facility] Ondansetron HCl 4 mg 07/22/25 18:21 07/22/25 18:33 Ondansetron Inj 2 Mg/Ml Inj 2 Ml IVP 08/21/25 18:20 4 mg Q6HR PRN Administration NAUSEA OR VOMITING Protocol Plan 74-year-old female with a history of hypertension who is admitted for management of b/l hydronephrosis s/p b/l ureteral stents. #Bilateral hydronephrosis 2/2 to Uterine Prolapse #Bacteremia in setting of UTI Patient is s/p bilateral ureteral stent placement, cystoscopy, ureteroscopy, and vaginal pessary placement. Patient has markedly improved hematuria with clear, light-brown tinged urine. Patient notified and acknowledged about arranging outpatient visit at [facility] with urogynecologic support for minimally invasive hysterectomy. Blood culture showed no growth after 24 hours. Urine culture positive for Proteus Mirabilis. Labs significant for WBC 11.9. Plan: - Continue Levofloxacin 750 mg PO Q48HR - Pain controlled with Acetaminophen and Dilaudid as needed - Pending nuclear medicine scan to assess patient's flow and kidney function, order placed - Appreciate ObGyn recs: plan for future definitive hysterectomy with concomitant pelvic support procedure (suspension/colpopexy, potentially at tertiary center with urogynecology support) #Ground-level fall #JOSE 2/2 to Rhabdomylosis, resolving Patient experienced multiple falls due to weakness leading to muscle breakdown and rhabdomylosis. JOSE improving post procedure (bilateral ureteral stent placement, cystoscopy, ureteroscopy). Labs notable for BUN 22, Cr 1.5 indicating resolving JOSE. Ur Random Cr 27, Ur Random K <10. Patient will require nuclear medicine scan of the kidneys to assess recovering renal function and subsequent discontinuation of nava catheter prior to discharge. Plan: - Monitor hematuria on Nava Catheter, clear improvement from previous days - Referral to PT for multiple falls #Cholelithiasis Found on CT abdominal pelvis. Abdominal pain, nausea, vomiting and postprandial pain. Plan: - Continue to monitor #Pre-diabetic Patient's HgbA1c was 6.[address]. [address] patient on sliding scale and monitor blood sugars. Plan: - Started on insulin sliding scale - Monitor blood sugars Hospital Maintenance: Dispo: medsurg DVT ppx: Lovenox GI ppx: none Diet: Renal IV Lines: Peripheral IV Code Status: Full Code Patient seen and assessed under supervision of attending physician Dr. Bass. Jimmy Rodriguez
--- NOTE | 2025-07-29 15:05 | PD.RESDS ---
Planned Discharge Date 07/29/25 DS: Providers Provider Date of admission: 07/21/25 20:54 Primary care physician: Physician No Primary/Family Admitting Provider: Juan Rincon MD Attending Provider on Admission: Kalyan Bass DO Consults: 07/21/25 19:52 Consult to Urology Stat Comment: Volodymyr Hydronephrosis Consulting Provider: Paulina Wright 07/21/25 20:48 Consult to Nephrology Routine Comment: JOSE, ATN, UTI, urinary retention, CK Consulting Provider: Tori Michael 07/24/25 08:27 Consult to Gynecology Routine Comment: For uterine prolapse Consulting Provider: Boris Wolf 07/24/25 15:44 Referral Physical Therapy Routine Comment: Physician Instructions: Attending Provider on DC: Homero Matthews Discharging Provider: Homero Matthews [facility] Course Time Spent with Patient Time attestation: Total time spent providing and/or coordinating discharge services: Exam Vital Signs Temp Pulse Resp BP Pulse Ox O2 Del Method O2 Flow Rate 97.1 F 75 19 140/79 H 96 Room Air 4 07/29/25 12:00 07/29/25 12:37 07/29/25 12:00 07/29/25 12:00 07/29/25 12:00 07/29/25 12:00 07/25/25 04:00 Discharge Plan Plan Patient Disposition: HOME (Self Care) Patient condition on transfer: Stable Care Plan Goals: -Follow-up with PCP within 1 week of discharge. If you do not have appointment, please follow-up with the [facility] with Dr. Cancino. Call [phone] to make an appointment. -Recommended to see staff research associate within 1 week of discharge with Renal panel -Take levofloxacin 750mg every other day for 3 doses -Hold Losartan till u see ur PCP or Transfer Table Operator -Return to ED if symptoms persist or return or if the bleeding in the urine is worsening Instructions from Gynecology - Recommend future definitive treatment: combined suspension procedure with vaginal hysterectomy for vault suspension - Outpatient follow-up at a tertiary [facility] center with urogynecologic support - Consider minimally invasive hysterectomy combined with sacrospinous or sacral colpopexy suspension procedure at tertiary [facility] center Prescriptions/Referrals Prescriptions/Med Rec: New levofloxacin 750 mg tablet 750 mg PO Q48H Qty: 3 0RF Changed omeprazole 20 mg capsule,delayed release(DR/EC) 20 mg PO QDAY PRN (Reason: Acid Reflux) Qty: 30 0RF Patient Comments: TAKE 1 CAPSULE BY MOUTH EVERY DAY 30 MINUTES TO 1 HOUR BEFORE A MEAL Held losartan 50 mg tablet 50 mg PO QDAY Hold Instructions: Resume on 08/08/25. Hold medication till u see staff research associate or primary care provider Patient Comments: TAKE 1 TABLET BY MOUTH EVERY DAY Referrals: Paulina Wright MD [Physician, Urology] No Primary/Family,Physician [Primary Care Provider] Tori Michael MD [Physician, Nephrology] Patient/Caregiver Discharge Instructions Education Materials: Pelvic Organ Prolapse, Pelvic Organ Prolapse Surgery ..., Urinary Tract Infections in Women, Understanding Urinary Tract ..., When to Use Antibiotics Print Language: Croatian Stand Alone Forms: Rosemary Award Info., Patient Portal Info Letter
--- NOTE | 2025-07-29 17:39 | ESPR_ITS ---
<Statement entered by Pawel Cancino MD - 07/29/25 19:33> I have personally seen and examined the patient, agree with residents assessment and plan Patient plan of care was discussed with the attending physician, Dr. Kali Cancino, PGY2 Documentation for date of: 07/29/25 Subjective Subjective Interval history: Patient had no acute events overnight, vitals have been stable. She is overall feeling better with no reported abdominal pain. She denies fever, chills, nausea, vomiting, or dysuria. Labs significant for WBC 11.9, BUN 22, Cr 1.5, eGFR 37, Na 146. Patient's hematuria has cleared. Exam Vital Signs Temp Pulse Resp BP Pulse Ox O2 Del Method O2 Flow Rate 97.1 F 71 19 140/79 H 96 Room Air 4 07/29/25 12:00 07/29/25 16:37 07/29/25 12:00 07/29/25 12:00 07/29/25 12:00 07/29/25 12:00 07/25/25 04:00 Narrative Exam General: Patient alert, oriented, in no acute distress. HEENT: Normocephalic, atraumatic. PERRLA, EOMI, no scleral icterus or conjunctival injection. Oropharynx clear, mucous membranes moist. Cardiac: Regular rate and rhythm, normal S1/S2, no murmurs, rubs, or gallops. Peripheral pulses 2+ and symmetric. No peripheral edema. Lungs: Normal effort, clear to auscultation bilaterally, no wheezes, rales, or rhonchi. Abdomen: Soft, non-tender, non-distended. Normoactive bowel sounds. No hepatosplenomegaly, no rebound/guarding. : Nava catheter in place cleared with no hematuria. No clots, steady drainage. Extremities: Warm, well-perfused, no clubbing, cyanosis, or edema. Skin: Warm, dry, intact. No rashes, lesions, or ecchymoses. Neuro: Alert and oriented ?3. Speech fluent. Cranial nerves II?XII grossly intact. Psych: Appropriate mood and affect. Cooperative, good eye contact. Objective Labs 07/30/25 04:30 07/30/25 04:30 Labs: Laboratory Results - last 24 hr 07/29/25 04:40 WBC 11.9 H RBC 3.30 L Hgb 10.1 L Hct 31.4 L MCV 95 MCH 30.6 MCHC 32.2 RDW Std Deviation 47.4 H Plt Count 345 D Neut % (Auto) 71 Lymph % (Auto) 14 [place] % (Auto) 6 Eos % (Auto) 1 Baso % (Auto) 1 Neut # (Auto) 8.5 H Lymph # (Auto) 1.7 [place] # (Auto) 0.8 Eos # (Auto) 0.2 Baso # (Auto) 0.1 Immature Gran # (Auto) 0.75 H Absolute Nucleated RBC 0.03 H Immature Gran % 6 H Nucleated RBC % 0 Sodium 146 H Potassium 3.8 Chloride 107 Carbon Dioxide 27.8 Anion Gap 11 BUN 22 Creatinine 1.5 H Estim Creat Clear Calc 36.8 L eGFR 37 L BUN/Creatinine Ratio 15 Glucose 102 Calculated Osmolality 293 Calcium 9.6 Corrected Calcium 10.0 Phosphorus 4.3 Albumin 3.5 ABG Interpretation ABG results: 07/21/25 20:46 VBG pH 7.44 VBG pCO2 24 L VBG pO2 67 H VBG Base Excess -7 L Quality Measures Quality Measures none Advance care planning discussed with:: patient Assessment & Plan Assessment Current Active Medications: Generic Name Dose Route Start Last Admin Trade Name Freq PRN Reason Stop Dose Admin Acetaminophen 650 mg 07/21/25 21:13 Acetaminophen 325 Mg Tablet PO 08/20/25 21:12 Q4HR PRN Pain Scale 1-3 (Mild) Citric Acid/Sodium Citrate 30 ml 07/25/25 09:00 07/29/25 08:10 Citric Acid/Sodium Citr 15 Ml Udc (Bicitra) PO 08/24/25 08:59 30 ml BID DARIEL Administration Dextrose 25 ml 07/22/25 17:56 Dextrose 50%-Water Inj 50 Ml Syringe IV 08/21/25 17:55 Q15MIN PRN BG 50-70 responsive npo pt Dextrose 50 ml 07/22/25 17:56 Dextrose 50%-Water Inj 50 Ml Syringe IV 08/21/25 17:55 Q15MIN PRN BG <50 OR BG <70 & pt unresponsive Glucagon 1 mg 07/22/25 17:56 Glucagon Inj 1 Mg Vial IM Q15MIN PRN BG <70, and no IV access Insulin Human Lispro 0 unit 07/23/25 17:00 07/29/25 17:35 Insulin Lispro (Admelog) 1 Unit/0.01 Ml Unit SC 08/22/25 16:59 Not Given ACHS [facility] Protocol Levofloxacin 750 mg 07/30/25 09:00 Levofloxacin 250 Mg Tablet PO 08/06/25 08:59 Q48H [facility] Ondansetron HCl 4 mg 07/22/25 18:21 07/22/25 18:33 Ondansetron Inj 2 Mg/Ml Inj 2 Ml IVP 08/21/25 18:20 4 mg Q6HR PRN Administration NAUSEA OR VOMITING Protocol Plan 74-year-old female with a history of hypertension who is admitted for management of b/l hydronephrosis s/p b/l ureteral stents. #Bilateral hydronephrosis 2/2 to Uterine Prolapse #Bacteremia in setting of UTI Patient is s/p bilateral ureteral stent placement, cystoscopy, ureteroscopy, and vaginal pessary placement. Patient has resolved hematuria, clear nava catheter. Nuclear medicine scan showed: No flow or function left kidney, Flow right kidney no function, Low right kidney no function. Plan: - Continue Levofloxacin 750 mg PO Q48HR - Pain controlled with Acetaminophen and Dilaudid as needed - Followup with radiology and urology regarding nuclear medicine scan results - Appreciate ObGyn recs: plan for future definitive hysterectomy with concomitant pelvic support procedure (suspension/colpopexy, potentially at tertiary center with urogynecology support) #Ground-level fall #JOSE 2/2 to Rhabdomylosis Patient experienced multiple falls due to weakness leading to muscle breakdown and rhabdomylosis. JOSE improving post procedure (bilateral ureteral stent placement, cystoscopy, ureteroscopy). Labs notable for BUN 26, Cr 1.4. Ur Random Cr 27, Ur Random K <10. Hematuria has resolved. Plan: - Discontinue nava catheter - Referral to PT for multiple falls #Cholelithiasis Found on CT abdominal pelvis. Abdominal pain, nausea, vomiting and postprandial pain. Plan: - Continue to monitor #Pre-diabetic Patient's HgbA1c was 6.[address]. Will place patient on sliding scale and monitor blood sugars. Plan: - Started on insulin sliding scale - Monitor blood sugars Hospital Maintenance: Dispo: medsurg DVT ppx: Lovenox GI ppx: none Diet: Renal IV Lines: Peripheral IV Code Status: Full Code Patient seen and assessed under supervision of attending physician Dr. Bass. Jimym Rodriguez S-IV, Internal Medicine Attending Provider Attestation/Addendum I have discussed and was present for the essential components of the history, physical examination, diagnosis, and treatment plan with the resident. I agree with the patient's care as documented by the resident and amended herein by me. Hugo Bass, DO. Although this document has been carefully reviewed, there may still be some phonetic and other typographical errors. These errors are purely grammatical due to imperfections in the software program and should not be construed in any way to compromise the substance of the patient's medical care during this visit.
[2025-07-30] VITALS: BP 121/71; PULSE 82; RESP 18; TEMP 36.1; O2SAT 96
[2025-07-30 01:34] VITALS: PULSE 65
[2025-07-30 03:45] VITALS: PULSE 63
[2025-07-30 04:00] VITALS: BP 136/71; PULSE 72; RESP 19; TEMP 36.1; O2SAT 96
[2025-07-30 05:10] LABS: Basophils # (Auto) 0.1 Thou/mm3 (0.0-0.2); Basophils % (Auto) 1 % (0-2.5); Eosinophils # (Auto) 0.2 Thou/mm3 (0.0-0.5); Eosinophils % (Auto) 2 % (0-10); Hematocrit 31.5 % (36.0-46.0); Hemoglobin 10.1 g/dL (12.0-16.0); Immature Granulocytes Auto 0.65 Thou/mm3 (0.00-0.00); Lymphocytes # (Auto) 1.5 Thou/mm3 (1.0-4.8); Lymphocytes % (Auto) 13 % (10-50); Mean Corpuscular HGB Conc 32.1 g/dl (31.0-37.0); Mean Corpuscular Hemoglobin 30.6 pg (25.0-35.0); Mean Corpuscular Volume 96 fL (80-100); Monocytes # (Auto) 0.8 Thou/mm3 (0.0-0.8); Monocytes % (Auto) 7 % (0-12); Neutrophils # (Auto) 8.3 Thou/mm3 (1.8-7.7); Neutrophils % (Auto) 72 % (37-80); Nucleated Red Blood Cell # 0.02 Thou/mm3 (0.00-0.00); Nucleated Red Blood Cell % 0 /100 WBC (0); Platelet Count 349 Thou/mm3 (140-440); RDW Standard Deviation 47.2 fL (36.4-46.3); Red Blood Count 3.30 Miln/mm3 (4.00-5.20); White Blood Count 11.5 Thou/mm3 (3.6-11.0)
[2025-07-30 05:49] VITALS: BMI 40.5
[2025-07-30 06:08] LABS: Albumin, Serum 3.4 gm/dL (3.4-4.8); Anion Gap 10 (7-16); BUN/Creatinine Ratio 11 Ratio (12-20); Blood Urea Nitrogen 16 mg/dL (9-23); Calcium 9.3 mg/dL (8.3-10.6); Calcium (Corrected) 9.8 mg/dL (8.5-10.1); Carbon Dioxide 25.6 mMol/L (20.0-31.0); Chloride 110 mMol/L (98-107); Creatinine (Component) 1.4 mg/dL (0.6-1.3); Estimated Creatinine Clearance 39.4 mL/min (>60); Glucose 112 mg/dL (74-106); Osmolality,Calculated 292 (275-295); Phosphorous 4.4 mg/dL (2.4-5.1); Potassium 4.0 mMol/L (3.4-5.1); Sodium 146 mMol/L (136-145); eGFR 40 See Note
--- NOTE | 2025-07-30 06:14 | PC.NURSE ---
Ku catheter removed at 0608, Pt tolerated well. Assisted Pt to the bathroom at 0612, had a small amount of urine output. Will pass on to AM nurse.
[2025-07-30 07:59] VITALS: BP 138/81; PULSE 66; RESP 18; TEMP 36.1; O2SAT 95
[2025-07-30] MEDS: CITRIC ACID/SODIUM CITR 15 ML UDC (BICITRA) 30 ML PO (08:38)
[2025-07-30] MEDS: LEVOFLOXACIN 250 MG TABLET 750 MG PO (08:38)
[2025-07-30 10:17] VITALS: PULSE 86
[2025-07-30 11:08] LABS: Band Neutrophils (Manual) 3 % (0-6); Eosinophils (Manual) 2 % (0-4); Lymphocytes (Manual) 6 % (20-44); Monocytes (Manual) 4 % (2-9); Myelocytes (Manual) 1 % (0-0); Neutrophils (Manual) 84 % (50-70)
--- NOTE | 2025-07-30 11:17 | ESPR_ITS ---
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 The episodes occurred once daily over the past three days during which she did not have any chest pain, paplation, or loss of consciousness. She reports being on Mounjaro and notes an approximate 10 pounds weight loss since initiation. Additionally, she endorses urinary symptoms for the past week, including coining difficulties, dysuria, hematuria and a sensation of incomplete bladder emptying. At the time she of ED visit, patient complained of Nausea, mouth dryness and diarrhea. Denies chest pain, palpation, SOB, abdominal pain, N/V, fevers or chills. Pt was admitted for rhabdomyolysis/UTI evaluation and management. Nephrology has been consulted for management of NICK, rhabomyolysis and UTI. 07/22/2025: Labs reviewed and patient examined at the bedside. Patient's past Cr was 0.67 in 2023. On admission, her Cr 4.3 which shows that she have NICK. The cause of Nick is likely to be multi-factorial. Pre-renal cause include nausea, vomiting, and diarrhea, likely caused by ozempic, and since she had significant weight loss after using it, perhaps the dosage might be too much for patient's body. Instrinsic renal cause likely due to ATN caused by rhabdomyolysis. Post- renal as evidenced by CT scan and Renal US showing bilateraly hydronephrosis, but cause is less clear because based on ED note, patient has drained very little urine when nava catheter was first introduced. The cause can be due to uterine prolapse. Vesicoureteral reflux can contribute to the picture of bilateral hydronephrosis and anuria despite nava, but VUR itself does not ususally cause an immediate postrenal obstruction. However, it does predispose patients to UTI and chronic scarring. Will continue to monitor patient. Will continue IVF and abx. 07/23/2025: Labs reviewed and patient examined at the bedside. Cr currently 3.5 . Patient also showed substantial uterine prolapse that would have contributed to patient's UTI. Pending cystoscopy and ureteral stent placement pending from urology today. Advise OBGYN consult for management of uterine prolapse. Patient's UOP was 1.4 L. Nava bag showed dark red urine. Bladder irrigation is recommended. 07/24/2025: Labs reviewed and patient examined at the bedside. BUN:80, Cr:3.4, eGFR:14. Yesterday, patient received cystoscopy, bilateral retrograde pyelogram, bilateral ureteroscopy, placement of bilateral ureteral stents, urethral dilation, nava catheter insertion, and Vaginal pessary placement for complete uterovaginal prolapse. During exapination, there was high grade obstruction in bilateral ureter, worse on the right side. There was kinking of ureter at a 90 degree from the bladder. A lot of puslike material was draining from the both kidneys. Stent was placed on both sides of ureter. Nava bag showed dark red urine, like due to the procedure done yesterday. Currently there is no need for dialysis. Will continue to monitor. 07/26/2025: Labs reviewed and patient examined at the bedside. The nava bag was filled with hematuria likely from the ureter stent placement. Per OBGYN consult, the uterovaginal prolapse causing urinary retention has been treated with vaginal pessary. Does not recommend immediate hysterectomy at this moment, but, in the future should consider minimally invasive hysterectomy combined with sacrospinous or sacral colpopexy suspension procedure at tertiary care center. Care discussed with at bedside BUN and creatinine better. 07/27/2025 patient currently seen and medical floor. Resting comfortably. Nava catheter still with hematuria. Labs, medications reviewed. Blood pressure 140/73, heart rate 72. Hemoglobin 9.8, WBC 11.2. Creatinine 1.5. 07/30/2025 patient currently seen in medical floor. Resting comfortably. Nava catheter was removed. No further hematuria. Creatinine markedly improved to 1.4. Renal scan showed no flow or function in the left kidney decreased function and right kidney. Most likely related to ATN. Spoke to Dr Wright- needs a repeat renal months at [facility]. Review of Systems Review of Systems Narrative Review of Systems: CONSTITUTIONAL: Patient denies any fever, chills. HEENT: Denies any visual disturbances or hearing problems. CARDIOVASCULAR: Patient denies any chest pain, shortness of breath, swelling in the lower extremities. PULMONARY: Patient denies any shortness of breath, cough. GASTROINTESTINAL: Patient denies any abdominal pain, constipation, nausea, vomiting, diarrhea. GENITOURINARY: Patient denies any urinary symptoms of burning or frequency . ++ hematuria, denies any form in the urine. SKIN: Denies any rash. MUSCULOSKELETAL: Denies any muscular skeletal problems of joint pains. NEUROLOGICAL: Denies any neurological problems of strokes, seizures or confusion. Denies any memory problems. PSYCHIATRIC: Denies any depression or anxiety. LYMPHATICS : No lymphadenopathy Exam Vital Signs Temp Pulse Resp BP Pulse Ox O2 Del Method O2 Flow Rate 36.1 C 86 18 138/81 H 95 Room Air 4 07/30/25 07:59 07/30/25 10:17 07/30/25 07:59 07/30/25 07:59 07/30/25 07:59 07/30/25 07:59 07/25/25 04:00 Narrative Exam General: No acute distress, well nourished, AAO x3 Eye: PERRL, EOMI, normal conjunctiva, no scleral icterus HENT: Normocephalic, atraumatic, hearing intact to conversation at normal volume, moist oral mucosa Neck: Supple, non-tender, no JVD, no lymphadenopathy Lungs: Non-labored respirations, symmetric chest rise, Clear to auscultate bilaterally, No wheezing, rhonchi, crackles Heart: Peripheral pulses intact bilaterally, Regular Rate and Rhythm. Abdomen: Soft, non-tender, non-distended, no palpable masses, Nava with hematuria. Musculoskeletal: Normal range of motion and strength, No cyanosis or edema, No visible joint swelling, Ecchymosis around left eye--markedly improved Skin: Skin is warm, dry, no rashes or lesions. Psychiatric: Cooperative, appropriate mood and affect, Awake and alert, not agitated Neuro: Cranial nerves II-XII grossly intact. Sensations intact to light touch. Objective Labs 07/30/25 04:30 07/30/25 04:30 Labs: Laboratory Results - last 24 hr 07/30/25 04:30 WBC 11.5 H RBC 3.30 L Hgb 10.1 L Hct 31.5 L MCV 96 MCH 30.6 MCHC 32.1 RDW Std Deviation 47.2 H Plt Count 349 Neut % (Auto) 72 Lymph % (Auto) 13 [place] % (Auto) 7 Eos % (Auto) 2 Baso % (Auto) 1 Neut # (Auto) 8.3 H Lymph # (Auto) 1.5 [place] # (Auto) 0.8 Eos # (Auto) 0.2 Baso # (Auto) 0.1 Immature Gran # (Auto) 0.65 H Absolute Nucleated RBC 0.02 H Immature Gran % 6 H Neutrophils % (Manual) 84 H Monocytes % (Manual) 4 Eosinophils % (Manual) 2 Myelocytes % 1 H Nucleated RBC % 0 Band Neutrophils 3 Lymphocytes (Manual) 6 L Sodium 146 H Potassium 4.0 Chloride 110 H Carbon Dioxide 25.6 Anion Gap 10 BUN 16 Creatinine 1.4 H Estim Creat Clear Calc 39.4 L eGFR 40 L BUN/Creatinine Ratio 11 L Glucose 112 H Calculated Osmolality 292 Calcium 9.3 Corrected Calcium 9.8 Phosphorus 4.4 Albumin 3.4 ABG Interpretation ABG results: 07/21/25 20:46 VBG pH 7.44 VBG pCO2 24 L VBG pO2 67 H VBG Base Excess -7 L Assessment & Plan Assessment and plan (1) Urinary tract infection: Status: Acute (2) Sepsis: Status: Acute (3) Rhabdomyolysis: Status: Acute (4) Uterine procidentia: Status: Acute Additional Assessment & Plan Additional Plan: #NICK-multifactorial--prerenal from nausea/vomiting/diarrhea versus pigment nephropathy from rhabdo versus urinary retention from a complete ureteral vaginal prolapse. Patient had a bilateral stent placement with Dr. Murphy along with pessary. She is able to walk. Nava catheter was removed. Hematuria resolved. Sepsis resolved. Patient can be discharged on p.o. antibiotics. Creatinine improving. Care discussed with primary team. Quality - progress note Quality Measures Quality Measures: VTE prophylaxis Reason for Continued Stay Reason for Continued Stay: further monitoring
--- NOTE | 2025-07-30 13:14 | ESDS_ITS ---
<Statement entered by Alka Montes MD - 08/08/25 08:17> I reviewed above note and agree with findings and plans. I have also personally examined the patient with medicine team and went over assessment and plan with medical team including strategy intern and resident physician. Planned Discharge Date 07/30/25 DS: Providers Provider Date of admission: 07/21/25 20:54 Primary care physician: Physician No Primary/Family Admitting Provider: Juan Rincon MD Attending Provider on Admission: Kalyan Bass DO Consults: 07/21/25 19:52 Consult to Urology Stat Comment: Volodymyr Hydronephrosis Consulting Provider: Paulina Wright 07/21/25 20:48 Consult to Nephrology Routine Comment: JOSE, ATN, UTI, urinary retention, CK Consulting Provider: Tori Michael 07/24/25 08:27 Consult to Gynecology Routine Comment: For uterine prolapse Consulting Provider: Boris Wolf 07/24/25 15:44 Referral Physical Therapy Routine Comment: Physician Instructions: Attending Provider on DC: Homero Matthews Discharging Provider: Homero Matthews DS: Diagnosis Problem List Completed Was Problem List Reviewed/Reconciled?: Yes Hospital Course Hospital Course Hospital course: 74-year-old female with a history of hypertension and uterine prolapse who presented to the hospital on 07/21 with weakness following a ground-level fall admitted for the evaluation and management of UTI, rhabdomyolysis and bilateral hydronephrosis. The fall had occurred 3 days prior associated with sudden onset generalized weakness. The patient also had 1 week of dysuria, hematuria, sensation of full/distended bladder, and inability to void completely. In the ED, her initial vitals were BP 104/25, pulse 111, respiratory 18, temp 101.8, O2 75% on room air. Labs significant for WBC 11.8, hemoglobin 11.6, hematocrit 34.3, platelet 108, sodium 134, bicarb 19.3, BUN 60, creatinine 4.3, eGFR 10, AST 125, ALT 59, lactic creatinine is 204, creatinine kinase 4472, Pro-Arthur 77.81. VBG pH 7.44, CO2 24, O2 67. UA showed turbid urine, LE positive, 1000 RBC, 14,000 WBC, 4+ bacteria. Imaging included CT A/P showed moderate to prominent right hydronephrosis, mild to moderate left hydronephrosis but no obstructive lesions seen. Suspect to vesicoureteral reflux and significant urinary tract and bladder infection. CT head was negative for hemorrhage or mass affect. EKG showed sinus tachycardia. In the ED, patient was given 1 L LR, started nava cath, made 170cc urine after nava and post nava bladder showed 143 cc. Given concern for hydronephrosis, patient was worked up with retrograde pyelogram which showed opacification of bilateral dilated renal collecting systems. Subsequently urology was consulted for cystoscopy and ureteral stent placement. Cystoscopy showed high-grade renal obstruction, kinking of the ureter at a 90 degree mostly on the R side from the bladder into the prolapsed bladder; pus like drainage from both kidneys; high-grade obstruction on the right side more than the left side. Obgyn was consulted for uterine prolapse and vaginal pessary was placed. Patient was recommended for minimally invasive hysterectomy combined with sacrospinous or sacral colpopexy suspension procedure at tertiary care center. Nephrology was consulted for sepsis iso UTI and ATN 2/2 obstructive uropathy and patient was monitored for recovering kidney function with fluid intake and Bicitra. Patient was also treated for bacteremia treated with Ceftriaxone 1gm initially, followed by IV Zosyn 2.25 gm due to blood cultures showing E. Coli, then adjusted to Levofloxacin 750 mg due to urine culture showing Proteus Mirabalis. Patient was placed on nava catheter for hematuria following the urological procedures and was monitored throughout hospital stay until hematuria was resolved completely and nava was discontinued. Patient's kidney function returned to normal baseline with BUN 16, Cr 1.3, eGFR 40. She denies fever, chills, nausea, vomiting, abdominal pain, chest pain, shortness of breath or dysuria. Patient is discharged to home with following medications and recommendations: - Follow-up with PCP within 1 week of discharge. - Recommended to see dentist/owner within 1 week of discharge with Renal panel - Take levofloxacin 750mg every other day for 3 doses - Hold Losartan until appointment with PCP or dentist/owner - Return to ED if symptoms persist or return or if the bleeding in the urine is worsening - Recommend future definitive treatment at outpatient tertiary care center: combined suspension procedure with vaginal hysterectomy for vault suspension Status at Discharge Overall status at discharge: patient is progressing back to baseline Time Spent with Patient Time attestation: Total time spent providing and/or coordinating discharge services: 45 minutes Time spent: Greater than 30 minutes Exam Vital Signs Temp Pulse Resp BP Pulse Ox O2 Del Method O2 Flow Rate 97 F 86 18 138/81 H 95 Room Air 4 07/30/25 07:59 07/30/25 10:17 07/30/25 07:59 07/30/25 07:59 07/30/25 07:59 07/30/25 07:59 07/25/25 04:00 Narrative Exam General: Patient alert, oriented, in no acute distress. HEENT: Normocephalic, atraumatic. PERRLA, EOMI. Oropharynx clear, mucous membranes moist. Cardiac: Regular rate and rhythm, normal S1/S2, no murmurs, rubs, or gallops. Peripheral pulses 2+ and symmetric. Lungs: Normal effort, clear to auscultation bilaterally, no wheezes, rales, or rhonchi. Abdomen: Soft, non-tender, non-distended. Normoactive bowel sounds. No hepatosplenomegaly, no rebound/guarding. : Nava catheter removed, voiding spontaneously with clear yellow urine, no suprapubic fullness or tenderness to palpation. Extremities: Warm, well-perfused, no clubbing, cyanosis, or edema. Skin: Warm, dry, intact. No rashes, lesions, or ecchymoses. Neuro: Alert and oriented ?3. Speech fluent. Cranial nerves II?XII grossly intact. Psych: Appropriate mood and affect. Cooperative, good eye contact. Discharge Plan Plan Patient Disposition: HOME (Self Care) Patient condition on transfer: Stable Care Plan Goals: -Follow-up with PCP within 1 week of discharge. If you do not have appointment, please follow-up with the [facility] with Dr. Cancino. Call [phone] to make an appointment. -Recommended to see dentist/owner within 1 week of discharge with Renal panel -Take levofloxacin 750mg every other day for 3 doses -Hold Losartan till u see ur PCP or Information Technology Instructor -Return to ED if symptoms persist or return or if the bleeding in the urine is worsening Instructions from Gynecology - Recommend future definitive treatment: combined suspension procedure with vaginal hysterectomy for vault suspension - Outpatient follow-up at a tertiary care center with urogynecologic support - Consider minimally invasive hysterectomy combined with sacrospinous or sacral colpopexy suspension procedure at tertiary care center Prescriptions/Referrals Prescriptions/Med Rec: New levofloxacin 750 mg tablet 750 mg PO Q48H Qty: 3 0RF Changed omeprazole 20 mg capsule,delayed release(DR/EC) 20 mg PO QDAY PRN (Reason: Acid Reflux) Qty: 30 0RF Patient Comments: TAKE 1 CAPSULE BY MOUTH EVERY DAY 30 MINUTES TO 1 HOUR BEFORE A MEAL Held losartan 50 mg tablet 50 mg PO QDAY Hold Instructions: Resume on 08/08/25. Hold medication till u see dentist/owner or primary care provider Patient Comments: TAKE 1 TABLET BY MOUTH EVERY DAY Referrals: Paulina Wright MD [Physician, Urology] No Primary/Family,Physician [Primary Care Provider] Tori Michael MD [Physician, Nephrology] Patient/Caregiver Discharge Instructions Education Materials: Pelvic Organ Prolapse, Pelvic Organ Prolapse Surgery ..., Urinary Tract Infections in Women, Understanding Urinary Tract ..., When to Use Antibiotics Print Language: [place]gu[place] Stand Alone Forms: [facility] Award Info., Patient Portal Info Letter Discharge Order Discharge Orders: Discharge (Routine); Ordered 07/30/25 Ordered By: Costa Hanson Quality Discharge Quality Measures VTE prophylaxis
== END 2025-07-30 10:35 | disposition home or self-care (01) | DRG 853 ==
LOC: SERX 18:28 → SERHOLD 21:21 → S3SX 22:05
PROVIDERS: Internal Medicine; Urology; Admitting Provider Student in an Organized Health Care Education/Training Program; Emergency Provider Emergency Medicine; Visit Provider Student in an Organized Health Care Education/Training Program
PROC: 0TJB8ZZ Inspection of Bladder, Via Natural or Artificial Opening Endoscopic (ICD-10-PCS; CPT 52000; principal; 2025-07-23 11:30)
DX: A41.51 Sepsis due to Escherichia coli [E. coli] (principal); N17.0 Acute kidney failure with tubular necrosis; N13.6 Pyonephrosis; M62.82 Rhabdomyolysis; R53.1 Weakness; I10 Essential (primary) hypertension; W18.30XA Fall on same level, unspecified, initial encounter; R29.6 Repeated falls; R30.0 Dysuria; R74.01 Elevation of levels of liver transaminase levels; K80.20 Calculus of gallbladder without cholecystitis without obstruction; B96.4 Proteus (mirabilis) (morganii) as the cause of diseases classified elsewhere; N81.3 Complete uterovaginal prolapse; R73.03 Prediabetes; Z90.710 Acquired absence of both cervix and uterus; R31.0 Gross hematuria; N35.92 Unspecified urethral stricture, female; Z79.899 Other long term (current) drug therapy
CPT/HCPCS: 36415; 70450; 71045; 73630; 74176; 74420; 76770; 78709; 80048; 80053; 80069; 81001; 82436; 82550; 82570; 82803; 83036; 83540; 83550; 83605; 83615; 83735; 84100; 84133; 84145; 84300; 85014; 85018; 85025; 85610; 87040; 87077; 87086; 87186; 87400; 87493; 87811; 93005; 93225; 96361; 96365; 96375; 97162; 99285; A4217; A4649; A9562; C1769; C1894; C2617; J0131; J0696; J1171; J1580; J1815; J1956; J2250; J2405; J2543; J2704; J3010; J3475; J3490; J7050; J7120; Q0138; Q5105; Q9968; A9270

== ENCOUNTER → 2025-09-05 | Outpatient (BNVA) | payer OTHER, SELFPAY | END | disposition home or self-care (01) | PROVIDERS: PCP Internal Medicine; Referring Provider Internal Medicine; Visit Provider Urology | DX: N81.10 Cystocele, unspecified (principal); I10 Essential (primary) hypertension; N81.6 Rectocele; N39.3 Stress incontinence (female) (male); Z96.0 Presence of urogenital implants; E66.9 Obesity, unspecified; Z68.39 Body mass index [BMI] 39.0-39.9, adult | CPT/HCPCS: 81003; 99212; G0463 ==

== ENCOUNTER → 2025-09-05 | Outpatient (CLI) | payer OTHER, SELFPAY ==
--- NOTE | 2025-09-05 | XR_ITS ---
Examination: Abdomen AP single view Technique: AP portable supine abdomen, single view Exam date and time: September 05 2025 at 1240 hours INDICATIONS: History bilateral ureteral stent placement July 24, 2025 FINDINGS: Bilateral ureteral stent satisfactory position Abundant stool throughout the colon No definite renal or ureteral calculi IMPRESSION: Bilateral ureteral stent satisfactory position
[2025-09-05 13:37] LABS: Basophils # (Auto) 0.0 Thou/mm3 (0.0-0.2); Basophils % (Auto) 1 % (0-2.5); Eosinophils # (Auto) 0.3 Thou/mm3 (0.0-0.5); Eosinophils % (Auto) 3 % (0-10); Hematocrit 37.5 % (36.0-46.0); Hemoglobin 12.2 g/dL (12.0-16.0); Immature Granulocytes Auto 0.03 Thou/mm3 (0.00-0.00); Lymphocytes # (Auto) 1.9 Thou/mm3 (1.0-4.8); Lymphocytes % (Auto) 26 % (10-50); Mean Corpuscular HGB Conc 32.5 g/dl (31.0-37.0); Mean Corpuscular Hemoglobin 30.8 pg (25.0-35.0); Mean Corpuscular Volume 95 fL (80-100); Monocytes # (Auto) 0.5 Thou/mm3 (0.0-0.8); Monocytes % (Auto) 7 % (0-12); Neutrophils # (Auto) 4.8 Thou/mm3 (1.8-7.7); Neutrophils % (Auto) 63 % (37-80); Nucleated Red Blood Cell # 0.00 Thou/mm3 (0.00-0.00); Nucleated Red Blood Cell % 0 /100 WBC (0); Platelet Count 160 Thou/mm3 (140-440); RDW Standard Deviation 47.2 fL (36.4-46.3); Red Blood Count 3.96 Miln/mm3 (4.00-5.20); White Blood Count 7.6 Thou/mm3 (3.6-11.0)
[2025-09-05 13:59] LABS: Albumin, Serum 4.7 gm/dL (3.4-4.8); Anion Gap 11 (7-16); BUN/Creatinine Ratio 15 Ratio (12-20); Blood Urea Nitrogen 18 mg/dL (9-23); Calcium 9.7 mg/dL (8.3-10.6); Calcium (Corrected) 9.7 mg/dL (8.5-10.1); Carbon Dioxide 25.0 mMol/L (20.0-31.0); Chloride 106 mMol/L (98-107); Creatinine (Component) 1.2 mg/dL (0.6-1.3); Glucose 119 mg/dL (74-106); Osmolality,Calculated 286 (275-295); Phosphorous 3.6 mg/dL (2.4-5.1); Potassium 5.3 mMol/L (3.4-5.1); Sodium 142 mMol/L (136-145); eGFR 48 See Note
== END | disposition home or self-care (01) ==
LOC: CDIM 11:58 → COPL 12:55
PROVIDERS: Referring Provider Internal Medicine; Visit Provider Urology
DX: Z96.0 Presence of urogenital implants (principal); N17.9 Acute kidney failure, unspecified
CPT/HCPCS: 36415; 74018; 80069; 85025

== ENCOUNTER → 2025-09-23 | Outpatient (CLI) | payer OTHER, SELFPAY ==
--- NOTE | 2025-09-23 13:15 | XR_ITS ---
EXAMINATION: Nuclear medicine kidney imaging and flow and function multiple studies Date and time: 2024, comparison 07/29/2025 INDICATIONS: Hypertension history bilateral hydronephrosis, status post bilateral ureteral stents, no left renal function on isotope study 07/29/2025 TECHNIQUE AND FINDINGS: Intravenous administration 10.4 mCi Tc 99m MAG3 Normal flow right kidney mildly to moderately impaired right renal function, isotope activity right kidney at 20 minutes 85% Flow to the left kidney reduced by 40% Mildly to moderately impaired left renal function, activity at 20 minutes left kidney 52% IMPRESSION: Mildly to moderately impaired right renal function Mildly to moderately impaired left renal function, left renal function improved compared to 07/29/2025
== END | disposition home or self-care (01) ==
PROVIDERS: PCP Internal Medicine; Referring Provider Internal Medicine; Visit Provider Internal Medicine
DX: N28.9 Disorder of kidney and ureter, unspecified (principal)
CPT/HCPCS: 78709; A9562

== ENCOUNTER → 2025-10-10 | Outpatient (CLI) | payer OTHER, SELFPAY ==
--- NOTE | 2025-10-10 12:30 | XR_ITS ---
Examination: Breast ultrasound complete, bilateral Date and time of exam: October 10, 2025, 1247 hours INDICATIONS: Mammogram June 28, 2024 BI-RADS 3 focal asymmetry upper outer left breast 14 mm Technique: Real-time grayscale ultrasonographic imaging bilateral breasts, including all 4 quadrants as well as nipple retroareolar and axillary regions. Findings: Sonographic images right breast 11:00 cyst 9 x 7 mm Retroareolar circumscribed nodule 6 x 5 mm 39 mm axillary lymph node Sonographic images left breast No cystic or solid mass 23 mm left axillary lymph node IMPRESSION: BI-RADS Category 3: Probably benign findings Recommend 1 additional 6-month right breast sonogram follow-up to document stability of the 11 retroareolar nodule described above
--- NOTE | 2025-10-10 13:30 | XR_ITS ---
Examination: Screening digital mammography, bilateral Computer aided detection 3-D breast Tomosynthesis, bilateral Date and time of exam: 10/10/2025, 12:59 p.m. Comparisons: January 2024, May 2024 Indications: Screening Technique: Nonmagnified MLO, CC views of the breasts to been obtained, reconstructed from 3-D Tomosynthesis images. R2 computer aided detection program utilized for evaluation of suspicious masses and/or abnormal calcifications. 3-D Tomosynthesis images obtained. Technologist: Findings: There are scattered areas of fibroglandular density. Right upper outer quadrant asymmetry, 5.3 cm from the nipple on the MLO view. Otherwise, no evidence of abnormal masses or suspicious calcifications. Impression: Right asymmetry as above. Spot compression views and possible ultrasound evaluation recommended BI-RADS category 0: Incomplete assassment; need additional imaging evaluation
== END | disposition home or self-care (01) ==
PROVIDERS: PCP Internal Medicine; Referring Provider Internal Medicine; Visit Provider Internal Medicine
DX: Z12.31 Encounter for screening mammogram for malignant neoplasm of breast (principal); R92.8 Other abnormal and inconclusive findings on diagnostic imaging of breast; N63.41 Unspecified lump in right breast, subareolar
CPT/HCPCS: 76641; 77063; 77067